=== PATIENT | male | born 1955 | race Caucasian/White ===

== ENCOUNTER 2016-05-28 05:34 | Inpatient (IN) ==
[2016-05-28] MEDS ORDERED: Piperacillin/Tazobactam 3.375 GM in D5% in Water (Mini-Bag+) 100 ML IVPB ONE (05:45)
[2016-05-28] MEDS ORDERED: Vancomycin 1,000 MG in D5% in Water 250 ML IVPB ONE (05:45)
[2016-05-28] MEDS ORDERED: Levofloxacin 750 MG/150 ML 750 MG/150 ML BAG IVPB ONE (05:45)
[2016-05-28] MEDS: 0.9 % Sodium Chloride 1,000 ML IVC SCH ×2 (05:52→06:31)
--- NOTE | 2016-05-28 05:52 | Emergency Department Note ---
Disposition Clinical Impression: Hypoxia, Hypotension, Tachycardia, Severe sepsis Sepsis Qualifiers: Sepsis type: sepsis due to unspecified organism Qualified Code(s): A41.9 - Sepsis, unspecified organism Pneumonia Qualifiers: Pneumonia type: due to unspecified organism Laterality: unspecified laterality Lung location: unspecified part of lung Qualified Code(s): J18.9 - Pneumonia, unspecified organism Disposition: Admitted As Inpatient Condition: Fair Referrals: Mike Leger Jr, MD [Primary Care Provider] - Forms: ED Satisfaction Letter General Adult HPI - General Chief complaint: ED Shortness of Breath/Dyspnea Stated complaint: SOB Time Seen by Provider: 05/28/16 05:45 Source: EMS Mode of arrival: EMS Limitations: no limitations Nursing Notes Reviewed: Yes Vital Signs Reviewed: Yes - History of Present Illness HPI Narrative: 60-year-old male who woke up with dyspnea. Family reports that when he went to bed he was acting himself and he was not complaining of dyspnea at that time. He states that he has shortness of breath along with developing some mild pressure in his chest. Past medical history includes lung cancer for which he reports he is in remission. He also has COPD. He reports he has chronic lower extremity edema but with no diagnosis of CHF. Radiation: non-radiation Pain Severity: moderate Pain Scale: 5 Consistency: constant Improves with: nothing Worsens with: movement Associated symptoms: Reports: denies other symptoms Treatments Prior to Arrival: other (DuoNeb) - Related Data Home Medications Medication Instructions Recorded Confirmed Atorvastatin [Lipitor] 10 mg PO DAILY 12/28/14 03/26/16 Budesonide/Formoterol 160/4.5 1 puff IH BIDR 12/28/14 03/26/16 [Symbicort] Duloxetine HCl [Cymbalta] 60 mg PO BID 12/28/14 03/26/16 Furosemide [Lasix] 40 mg PO DAILY 12/28/14 03/26/16 Gabapentin [Neurontin] 800 mg PO BID 12/28/14 03/26/16 Ipratropium/Albuterol Sulfate 2 puff IH Q4-6H PRN 12/28/14 03/26/16 [Combivent Respimat Inhal [place]] Morphine Sulfate/D5w [Morphine-D5w 0 mg INTRACATH AD PRN 08/21/15 11/17/16 100 mg/100 ml] Nortriptyline [Pamelor] 10 mg PO HS 12/28/14 03/26/16 Sennosides/Docusate Sodium [Senna 1 each PO DAILY 12/28/14 03/26/16 Plus] Gabapentin [Neurontin] 1,600 mg PO HS 07/05/15 03/26/16 Dextroamphetamine/Amphetamine 20 mg PO DAILY 08/21/15 03/26/16 [Adderall 20 mg Tablet] Cholecalciferol (Vitamin D3) 1,000 unit PO DAILY 12/27/15 03/26/16 [Vitamin D3] Lactobacillus Combination No.8 1 mg PO DAILY 12/27/15 03/26/16 [Adult Probiotic] Benztropine [Cogentin] 1 mg PO HS PRN 01/14/16 03/26/16 Oxygen 3 l NS AD MDD 24 hours 01/14/16 03/26/16 Previous Rx's Medication Instructions Recorded Lidocaine Viscous Oral Soln 30 ml MM ONCE PRN #1 solution 12/28/14 OxyCODONE Immed Rel [Roxicodone 15 15 mg PO Q6HR PRN #40 tablet 07/09/15 MG] PredniSONE 10 mg PO DAILY #147 tablet 08/02/15 Levothyroxine [Synthroid] 175 mcg PO DAILY #90 tablet 08/15/15 Potassium Chloride 20 meq PO DAILY #90 tab.er.prt 01/17/16 Pantoprazole Sodium [Protonix] 40 mg PO DAILY #90 03/26/16 PredniSONE 5 mg PO DAILY #150 tablet 03/26/16 Allergies Allergy/AdvReac Type Severity Reaction Status Date / Time No Known Allergies Allergy Verified 03/26/16 15:48 All systems ED: reviewed and negative except as stated. Constitutional: Denies: fever Eyes: Denies: vision change ENT ED: Denies: ear pain, throat pain Cardiovascular: Reports: chest pain Respiratory: Reports: cough, dyspnea Gastrointestinal: Denies: abdominal pain, nausea, vomiting, diarrhea Genitourinary: Denies: dysuria Musculoskeletal: Denies: back pain Integumentary: Denies: rash Neurological: Denies: headache Endocrine: Reports: fatigue Past Medical History - Past Medical History Medical history: Reports: arthritis, cancer, COPD, hyperlipidemia, hypertension , other Psychiatric history: Reports: depression - Social History Smoking Status: Former smoker Smokeless Tobacco Status: No Alcohol use: Reports: none Drug use: Reports: none Physical Exam - General Limitations: no limitations General appearance: alert - Head Head exam: atraumatic - Eye Eye exam: Present: normal appearance, PERRL, EOMI - ENT ENT exam: normal exam, normal oropharynx - Neck Neck exam: Present: normal inspection - Chest Chest inspection: Present: normal inspection - Respiratory Respiratory exam: Present: other (rales on the right throughout. Coarse sounds bilaterally.). Absent: respiratory distress, stridor - Cardiovascular Cardiovascular exam: Present: normal rhythm, tachycardia - Abdominal Exam Abdominal exam: Present: soft, Non-Tender - Extremities Exam Extremities exam: Present: pedal edema (2+ bilaterally) - Back Exam Back exam: Present: normal inspection - Neurological Exam Neurological exam: Present: alert, oriented X3, CN II-XII intact - Skin Skin exam: Present: warm, dry Course Course Narrative: When he arrived he was tachycardic with a rate of approximately 125 and a blood pressure of approximately 100 systolic. His SPO2 was in the mid 80s on 4 L nasal cannula. he is now on a Ventimask and has an SPO2 of 92%. Throughout this he has not been in visible respiratory distress. He does have tachypnea but is able to carry on full conversations and will sentences. He also does not appear to be struggling. He is completely alert and oriented 3 and has no deficit in his cognition. He is febrile and has rails of the right lung. I have concern for sepsis of pulmonary origin and will initiate sepsis protocol along with initiating antibiotics. - Reevaluation(s) Reevaluation #1: Troponin is 0.04. No EKG changes and no current chest pain. After a fluid bolus his HR has decreased to around 100 and his blood pressure increased to 120 systolic. He states he feels much better. His O2 saturation has also improved. Reevaluation #2: Accepted by Dr Kirk. Requested hydrocortisone due to chronic steroid use which I will administer. Will request 2N bed. He is carrying on full sentence conversations still and fels improved. Vital Signs Temperature 102.1 F H 05/28/16 05:36 Pulse Rate 123 05/28/16 05:36 Respiratory Rate 24 05/28/16 05:36 Blood Pressure 98/73 05/28/16 05:36 O2 Sat by Pulse Oximetry 91 L 01/19/17 05:36 Temperature 102.1 F H 05/28/16 05:36 Pulse Rate 112 05/28/16 06:49 Respiratory Rate 32 05/28/16 06:49 Blood Pressure 125/81 05/28/16 06:49 O2 Sat by Pulse Oximetry 95 05/28/16 06:49 Oxygen Delivery Oxygen Delivery Nasal Cannula Medical Decision Making - Medical Records Medical records reviewed: Yes I reviewed the patient's medical records. - Lab Data Lab results reviewed: Yes I reviewed the patient's lab results. Result diagrams: 05/28/16 05:52 05/28/16 05:52 Lab Results 05/28/16 05/28/16 05/28/16 Range/Units 05:52 05:52 05:52 WBC 3.8 L (4.3-11.1) K/mcL RBC 4.19 (4.19-5.50) M/mcL Hgb 12.0 L (12.9-16.9) g/dL Hct 37.7 (37.5-50.1) % MCV 90.0 (83.0-100.0) fL MCH 28.6 (28.0-33.3) pg MCHC 31.8 (31.6-35.5) g/dL RDW 13.8 (11.5-14.5) % Plt Count 113 L (140-400) K/mcL MPV 10.7 (9.4-12.4) fL Immature Gran % 0.5 (0-4) % Seg Neutrophils % 90.0 % Lymphocytes % 5.0 % Monocytes % 2.6 % Eosinophils % 1.9 % Basophils % 0.0 % Neutrophils # 3.4 (1.6-8.9) K/mcL Lymphocytes # 0.2 L (0.6-4.6) K/mcL Monocytes # 0.1 (0.0-1.3) K/mcL Eosinophils # 0.1 (0.0-0.6) K/mcL Basophils # 0.0 (0.0-0.2) K/mcL Platelet Estimate Slight Decrease L (Normal) Immature Plt Fraction 7.6 H (1.1-6.1) % PT 11.9 (9.4-12.1) Seconds INR 1.1 APTT 26.9 (26.0-36.0) Seconds Sodium 138 (136-145) mEq/L Potassium 3.1 L (3.5-4.5) mEq/L Chloride 98 (98-109) mEq/L Carbon Dioxide 30 H (19-29) mEq/L BUN 24 (8-26) mg/dL Creatinine 0.75 (0.72-1.25) mg/dL Est GFR ( Amer) > 60 (> 60) Est GFR (Non-Af Amer) > 60 (> 60) BUN/Creatinine Ratio 32 H (6-26) Glucose 101 H (70-99) mg/dL Calculated Osmolality 290 (280-300) Lactic Acid (0.5-2.2) mmol/L Calcium 10.1 (8.6-10.8) mg/dL Phosphorus 2.0 L (2.3-4.7) mg/dL Magnesium 1.5 L (1.6-2.6) mg/dL Total Bilirubin 1.5 H (0.2-1.2) mg/dL Direct Bilirubin 0.6 H (0.0-0.5) mg/dL Indirect Bilirubin 0.9 (0.0-1.2) mg/dL AST 32 (5-34) Units/L ALT 24 (0-55) Units/L Alkaline Phosphatase 85 (38-126) Units/L Troponin I (0-0.03) ng/mL Serum Total Protein 7.7 (6.0-8.3) g/dL Albumin 4.1 (3.5-5.0) g/dL Globulin 3.6 H (2.4-3.5) g/dL Albumin/Globulin Ratio 1.1 (1.1-2.2) 05/28/16 05/28/16 Range/Units 05:52 06:16 WBC (4.3-11.1) K/mcL RBC (4.19-5.50) M/mcL Hgb (12.9-16.9) g/dL Hct (37.5-50.1) % MCV (83.0-100.0) fL MCH (28.0-33.3) pg MCHC (31.6-35.5) g/dL RDW (11.5-14.5) % Plt Count (140-400) K/mcL MPV (9.4-12.4) fL Immature Gran % (0-4) % Seg Neutrophils % % Lymphocytes % % Monocytes % % Eosinophils % % Basophils % % Neutrophils # (1.6-8.9) K/mcL Lymphocytes # (0.6-4.6) K/mcL Monocytes # (0.0-1.3) K/mcL Eosinophils # (0.0-0.6) K/mcL Basophils # (0.0-0.2) K/mcL Platelet Estimate (Normal) Immature Plt Fraction (1.1-6.1) % PT (9.4-12.1) Seconds INR APTT (26.0-36.0) Seconds Sodium (136-145) mEq/L Potassium (3.5-4.5) mEq/L Chloride (98-109) mEq/L Carbon Dioxide (19-29) mEq/L BUN (8-26) mg/dL Creatinine (0.72-1.25) mg/dL Est GFR ( Amer) (> 60) Est GFR (Non-Af Amer) (> 60) BUN/Creatinine Ratio (6-26) Glucose (70-99) mg/dL Calculated Osmolality (280-300) Lactic Acid 2.1 (0.5-2.2) mmol/L Calcium (8.6-10.8) mg/dL Phosphorus (2.3-4.7) mg/dL Magnesium (1.6-2.6) mg/dL Total Bilirubin (0.2-1.2) mg/dL Direct Bilirubin (0.0-0.5) mg/dL Indirect Bilirubin (0.0-1.2) mg/dL AST (5-34) Units/L ALT (0-55) Units/L Alkaline Phosphatase (38-126) Units/L Troponin I 0.04 H* (0-0.03) ng/mL Serum Total Protein (6.0-8.3) g/dL Albumin (3.5-5.0) g/dL Globulin (2.4-3.5) g/dL Albumin/Globulin Ratio (1.1-2.2) - Radiology Data Radiology results reviewed: Yes I reviewed the patient's radiology results. - EKG Data EKG #1 EKG attestation: Yes I reviewed and interpreted this EKG. EKG shows normal: sinus rhythm Rate: tachycardia [place]/QRS: RBBB When compared to previous EKG there are: no significant changes Attestation Statement - Attestation Attestation: I, Brodie Saeed MD, personally performed a history and physical exam of the patient and discussed their management with the resident. I reviewed the resident's note and agree with the documented findings, medical decision making , and plan of care. 60-year-old male persisted emergency department with shortness of breath that started during the night. He was fine when he went to bed. Patient has a history of COPD and also lung cancer in his left lung. On arrival the patient is very tachypneic and tachycardic with a heart rate in the 130s. Oxygen saturation in the upper 80s to low 90s. Also somewhat hypotensive with a systolic blood pressure in the 90s. On examination he is a well-developed thin male who appears much older than actual age. He is alert and answers questions appropriately. There is no cyanosis or diaphoresis. Breath sounds are equal but decreased bilaterally with diffuse bibasilar rales, worse on the right. No wheezes noted. Heart tachycardic and regular. Abdomen soft with normal bowel sounds. 1+ pedal edema bilaterally. Labs reviewed. Chest x-ray shows the left suprahilar mass but no definite infiltrate. Antibiotics initiated. The hospitalist, Dr. Kirk, was consulted and accepted admission of patient.
[2016-05-28 06:04] LABS: Red Cell Distribution Width 13.8 % (11.5-14.5)
[2016-05-28 06:06] LABS: Eosinophils # 0.1 K/mcL (0.0-0.6); Eosinophils % 1.9 %; Hematocrit 37.7 % (37.5-50.1); Immature Granulocytes % 0.5 % (0-4); Immature Platelets 7.6 % (1.1-6.1); Lymphocytes # 0.2 K/mcL (0.6-4.6); Mean Corpuscular HGB Conc 31.8 g/dL (31.6-35.5); Mean Corpuscular Hemoglobin 28.6 pg (28.0-33.3); Mean Platelet Volume 10.7 fL (9.4-12.4); Monocytes # 0.1 K/mcL (0.0-1.3); Monocytes % 2.6 %; Neutrophils # 3.4 K/mcL (1.6-8.9); Platelet Count 113 K/mcL (140-400); Red Blood Count 4.19 M/mcL (4.19-5.50)
[2016-05-28 06:14] LABS: INR 1.1; Prothrombin Time 11.9 Seconds (9.4-12.1)
[2016-05-28 06:17] LABS: Activated Partial Thrombo Time 26.9 Seconds (26.0-36.0)
[2016-05-28 06:18] LABS: Alanine Aminotransferase 24 Units/L (0-55); Albumin 4.1 g/dL (3.5-5.0); Albumin/Globulin Ratio 1.1 (1.1-2.2); Alkaline Phosphatase 85 Units/L (38-126); Aspartate Amino Transferase 32 Units/L (5-34); BUN/Creatinine Ratio 32 (6-26); Bilirubin,Direct 0.6 mg/dL (0.0-0.5); Bilirubin,Indirect 0.9 mg/dL (0.0-1.2); Bilirubin,Total 1.5 mg/dL (0.2-1.2); Blood Urea Nitrogen 24 mg/dL (8-26); Calcium 10.1 mg/dL (8.6-10.8); Carbon Dioxide 30 mEq/L (19-29); Chloride 98 mEq/L (98-109); Globulin 3.6 g/dL (2.4-3.5); Glucose 101 mg/dL (70-99); Magnesium 1.5 mg/dL (1.6-2.6); Osmolality,Calculated 290 (280-300); Potassium 3.1 mEq/L (3.5-4.5); Sodium 138 mEq/L (136-145); Total Protein 7.7 g/dL (6.0-8.3); eGFR For African Americans > 60 (> 60); eGFR For Non-African Americans > 60 (> 60)
[2016-05-28] MEDS ORDERED: Aspirin 325 MG TABLET PO ONE (06:25)
[2016-05-28 06:39] LABS: Platelet Estimate Slight Decrease (Normal)
[2016-05-28] MEDS ORDERED: Hydrocortisone Sodium Succ 100 MG/2 ML VIAL IVP ONE (06:44)
[2016-05-28] MEDS ORDERED: Ipratropium/Albuterol Neb 3 ML IH PRN (07:50)
[2016-05-28] MEDS ORDERED: Acetaminophen 325 MG TABLET PO PRN (07:53)
[2016-05-28] MEDS ORDERED: Naloxone 0.4 MG/ML INJ IVP PRN (07:53)
[2016-05-28] MEDS ORDERED: Ondansetron 4 MG/2 ML VIAL IVP PRN (07:53)
[2016-05-28] MEDS ORDERED: Vancomycin 1,000 MG in D5% in Water 250 ML IVPB SCH (08:00)
[2016-05-28] MEDS ORDERED: 0.9 % Sodium Chloride 1,000 ML IVC SCH (08:00)
--- NOTE | 2016-05-28 08:04 | Internal Med History&Physical ---
Date of Encounter: 05/28/16 Time of Encounter: 07:59 Assessment and Plan (1) Acute and chronic respiratory failure with hypoxia Current visit: Yes Status: Acute Acute on chronic hypoxic respiratory failure secondary to acute COPD exacerbation from severe sepsis due to possible community-acquired pneumonia versus aspiration pneumonia Fever, leukopenia, hypotension and tachycardia Continue vancomycin and Levaquin, switched to cefepime Continue BiPAP and oxygen therapy Aspiration precautions Chicken ABG Continue IV fluids and IV Solu-Medrol Consider pressors if needed Send to 2 N, and the patient deteriorates we will consider ICU admission as the patient is a full code (2) COPD (chronic obstructive pulmonary disease) Current visit: Yes Status: Acute Qualifiers: COPD type: COPD with acute exacerbation Qualified Code(s): J44.1 - Chronic obstructive pulmonary disease with (acute) exacerbation (3) Leukopenia Current visit: Yes Status: Acute Qualifiers: Neutropenia type: due to infection Qualified Code(s): D70.3 - Neutropenia due to infection (4) Sepsis Current visit: Yes Status: Acute Qualifiers: Sepsis type: sepsis due to unspecified organism Qualified Code(s): A41.9 - Sepsis, unspecified organism (5) Neuropathy Current visit: No Status: Chronic Continue gabapentin (6) Non-small cell carcinoma of left lung, stage 4 Current visit: No Status: Chronic Follow as outpatient (7) Weakness Current visit: No Status: Chronic (8) Hypokalemia Current visit: No Status: Resolved Replete as needed Protonix IV for GI prophylaxis and Lovenox for DVT prophylaxis. The patient will be admitted as inpatient, he is expected to stay more than 2 midnights. Full code. Time spent on this critical care admission 40 minutes. He is high risk due to hypoxia and respiratory failure/sepsis Internal Medicine - H&P: HPI Chief complaint: shortness of breath Admitted From: Emergency Dept History of present illness: Mr. Soria is a 60 year old male with a past medical history of lung cancer s/p chemotherapy and radiotherapy, COPD O2 dependant, chronic lef edema, remote history of smoking, was brought to the emergency room by his as he was in severe respiratory distress that started approximately at 2:30 AM. The patient uses 3.5 L of oxygen at home usually, upon admission to the emergency room, his saturation of oxygen dropped to 80% even on 4 L for which he had to be started on a BiPAP. Developed a fever of 102.1, heart rate was 124, blood pressure was 98/73. The patient is barely waking up and is very lethargic, not able to provide proper history. The history was taken from his and the records. His potassium was 3.1 his white blood cell count is 3.8 troponin 0.04. Chest x-ray shows a left heel or mass present. 4 and a left lower lobe opacity compatible with pneumonia. PACs is down at the moment and were not able to look at the images directly. ABG has not been done yet. Patient was started on Levaquin, Zosyn and vancomycin. Also was given a dose of hydrocortisone. She has stabilized slightly and he is waking up at the moment and able to communicate that he is complaining of some mild chest pain on the left mainly pleuritic, and bringing up whitish phlegm. Past Med Surg Social Fam HX - Past Medical History Medical history: arthritis (Osteoarthritis), cancer (Non-small cell carcinoma stage IV status post chemotherapy and radiotherapy), COPD (Oxygen dependent using 3-3.5 L continuously), GERD, hyperlipidemia, hypertension, other ( Neuropathy, hypothyroidism, insomnia, depression, hyperlipidemia, chronic leg edema) Psychiatric history: depression - Past Surgical History Surgical History: other (Niesen fundoplication, laminectomy, spinal fusion, spinal cord stimulator removed, pain pump removed) - Social History Smoking Status: Former smoker (Quitting 2008) Smokeless Tobacco Status: No Alcohol use: none Drug use: none - Family History Mother Living Status: Still Living Hx Family Cardiac Disorders: Yes Hx Family Respiratory Disorders: Yes (COPD) Hx Family Neurologic Disorders: Yes (dementia) Father Living Status: Still Living Hx Family Cardiac Disorders: Yes (CHF, COPD) Hx Family Endocrine Disorder: Yes (DM) - Additional Family History Additional family history: Father with diabetes and mother with COPD Internal Medicine - H&P: Meds Atorvastatin [Lipitor] 10 mg PO DAILY 12/28/14 [History] Budesonide/Formoterol 160/4.5 [Symbicort] 1 puff IH BIDR 12/28/14 [History] Duloxetine HCl [Cymbalta] 60 mg PO BID 12/28/14 [History] Furosemide [Lasix] 40 mg PO DAILY 12/28/14 [History] Gabapentin [Neurontin] 800 mg PO BID 12/28/14 [History] Ipratropium/Albuterol Sulfate [Combivent Respimat Inhal [place]] 2 puff IH Q4-6H PRN 12/28/14 [History] Lidocaine Viscous Oral Soln 30 ml MM ONCE PRN #1 solution 12/28/14 [Rx] Morphine Sulfate/D5w [Morphine-D5w 100 mg/100 ml] 0 mg INTRACATH AD PRN [History] Nortriptyline [Pamelor] 10 mg PO HS 12/28/14 [History] Sennosides/Docusate Sodium [Senna Plus] 2 each PO DAILY PRN 12/28/14 [History] Gabapentin [Neurontin] 1,600 mg PO HS 07/05/15 [History] OxyCODONE Immed Rel [Roxicodone 15 MG] 15 mg PO Q6HR PRN #40 tablet 07/09/15 [Rx ] Levothyroxine [Synthroid] 175 mcg PO DAILY #90 tablet 08/15/15 [Rx] Dextroamphetamine/Amphetamine [Adderall 20 mg Tablet] 20 mg PO DAILY 08/21/15 [ History] Cholecalciferol (Vitamin D3) [Vitamin D3] 1,000 unit PO DAILY 12/27/15 [History] Lactobacillus Combination No.8 [Adult Probiotic] 1 mg PO DAILY 12/27/15 [History ] Benztropine [Cogentin] 1 mg PO HS PRN 01/14/16 [History] Oxygen 3 - 3.5 l NS CONT 01/14/16 [History] Potassium Chloride 20 meq PO DAILY #90 tab.er.prt 01/17/16 [Rx] Pantoprazole Sodium [Protonix] 40 mg PO DAILY #90 gran 03/26/16 [Rx] PredniSONE 5 mg PO DAILY #150 tablet 03/26/16 [Rx] Ammonium Lactate [Telma-Hydrolac] 1 appl TP BID 05/28/16 [History] Ipratropium/Albuterol Neb [Duoneb] 3 ml IH QID PRN 05/28/16 [History] Allergies No Known Allergies Allergy (Verified 03/26/16 15:48) All Systems PM: A 10-system review of systems was performed and is negative for pertinent findings except as documented above in the HPI. Review of systems: Uses extremely weak, unable to complete review of systems due to the patient's lethargy - Constitutional Vitals: Temp Pulse Resp BP Pulse Ox 101.6 F H 119 30 118/76 98 05/28/16 07:11 05/28/16 07:11 05/28/16 07:11 05/28/16 07:11 05/28/16 07:11 General appearance: Present: A&O X 3 (Very weak), underweight - Head Head exam: Present: atraumatic, normocephalic - Eye Eye exam: Present: PERRL, conjuntiva pink, sclera anicteric Pupils: Present: PERRL - Neck Neck exam general surgery: Present: supple, trachea midline. Absent: lymphadenopathy - Respiratory Respiratory exam: Present: decreased breath sounds, CTAB, rales (Diffuse crackles with mild wheezing), wheezes. Absent: accessory muscle use, rhonchi - Cardiovascular Cardiovascular exam: Present: RRR, +S1, +S2. Absent: diastolic murmur, gallop, rubs, systolic murmur - GI/Abdominal GI/Abdominal exam: Present: normal bowel sounds, soft, no peritoneal signs. Absent: distended, tenderness - Extremities Exam Extremities exam: Present: pedal edema (+1 pitting edema both lower extremities) , warm, radial pulses palpable and symetrical. Absent: calf tenderness, cyanotic - Neurological Exam Neurological exam: Present: CN II-XII intact, oriented X3, no focal deficits. Absent: pronater drift, facial droop, speech deficit - Skin Skin exam: Present: dry, intact Internal Med - H&P Results - Labs CBC & Chem 7: 05/28/16 05:52 05/28/16 05:52
[2016-05-28] MEDS: Ipratropium/Albuterol Neb 3 ML IH SCH ×4 (08:32→22:07)
[2016-05-28 08:34] LABS: ABG Base Excess 7.7 mEq/L (-2.0 to 3.0); ABG HCO3 33.6 mEQ/L (21-27); ABG Oxygen Saturation 94 % (95-98); ABG PCO2 53 mmHg (35-45); ABG PH 7.41 pH Units (7.32-7.45); ABG PO2 72 mmHg (85-104); ABG TCO2 35.2 mEq/L (20-26)
[2016-05-28 08:37] LABS: Blood Gas FiO2 40 %
[2016-05-28] MEDS: *HR* Enoxaparin 40 MG/0.4 ML SYRINGE SQ SCH (09:18)
[2016-05-28] MEDS: Cefepime HCl 1,000 MG in D5% in Water (Mini-Bag+) 100 ML IVPB SCH ×2 (09:18→17:15)
[2016-05-28] MEDS: Pantoprazole 40 MG VIAL IV SCH (09:19)
[2016-05-28] MEDS: methylPREDNISolone 125 MG/2 ML VIAL IV SCH ×2 (09:19→15:57)
[2016-05-28] MEDS: Lactobacillus 1 EACH CAP.SPRINK PO SCH (09:19)
[2016-05-28] MEDS: Gabapentin 400 MG CAPSULE PO SCH ×2 (09:19→19:44)
[2016-05-28] MEDS: D5% in 0.45% NACL w KCl 10 MEQ/1,000 ML MLS IVC SCH ×2 (09:19→17:52)
[2016-05-28] MEDS: (Dextroamphetamine/Amphetamine [Adderall 20 Mg Tablet PO SCH (09:20)
--- NOTE | 2016-05-28 12:00 | Electrocardiograph Report ---
[facility] Test Date: 2016-05-28 Pat Name: Edgard Soria Department: 103 Room: 2N07 Gender: M [employer]: DANIELLA : 1955 Requested By: Roman Hernandez Order Number: [id number] Reading MD: Osmani Mark MD Measurements Intervals [place] Rate: 123 P: 23 [place]: 130 QRS: 10 QRSD: 133 T: -17 QT: 319 QTc: 392 Interpretive Statements SINUS TACHYCARDIA WITH OCCASIONAL SUPRAVENTRICULAR PREMATURE COMPLEXES RIGHT BUNDLE BRANCH BLOCK Electronically Signed On 05-28-16 11:59:31 EST by Osmani Mark MD
[2016-05-28] MEDS: Vancomycin 1,000 MG in D5% in Water 250 ML IVPB SCH (17:53)
[2016-05-28 23:19] LABS: Bilirubin,Urine Negative (Negative); Blood,Urine Negative (Negative); Clarity,Urine Clear (Clear); Color,Urine Yellow (Yellow); Glucose,Urine (UA) Normal (Normal); Ketones,Urine Negative (Negative); Leukocyte Esterase,Urine Negative (Negative); Nitrite,Urine Negative (Negative); Protein,Urine Negative (Neg-Trace); Specific Gravity,Urine 1.014 (1.010-1.025); Urobilinogen,Urine Normal (Normal)
[2016-05-29] MEDS: methylPREDNISolone 125 MG/2 ML VIAL IV SCH ×3 (00:51→16:22)
[2016-05-29] MEDS: D5% in 0.45% NACL w KCl 10 MEQ/1,000 ML MLS IVC SCH ×2 (02:04→10:16)
[2016-05-29] MEDS: Ipratropium/Albuterol Neb 3 ML IH SCH ×4 (04:07→21:16)
[2016-05-29 05:05] LABS: Hematocrit 29.7 % (37.5-50.1); Hemoglobin 9.5 g/dL (12.9-16.9); Lymphocytes # 0.4 K/mcL (0.6-4.6); Lymphocytes % 3.1 %; Mean Corpuscular Hemoglobin 28.6 pg (28.0-33.3); Mean Corpuscular Volume 89.5 fL (83.0-100.0); Mean Platelet Volume 11.7 fL (9.4-12.4); Monocytes # 0.5 K/mcL (0.0-1.3); Monocytes % 4.5 %; Neutrophils # 10.2 K/mcL (1.6-8.9); Platelet Count 83 K/mcL (140-400); Red Blood Count 3.32 M/mcL (4.19-5.50); Red Cell Distribution Width 14.3 % (11.5-14.5); Segmented Neutrophils % 90.4 %
[2016-05-29 05:28] LABS: BUN/Creatinine Ratio 22 (6-26); Carbon Dioxide 27 mEq/L (19-29); Chloride 103 mEq/L (98-109); Glucose 157 mg/dL (70-99); Osmolality,Calculated 287 (280-300); Potassium 4.1 mEq/L (3.5-4.5); Sodium 137 mEq/L (136-145); eGFR For African Americans > 60 (> 60); eGFR For Non-African Americans > 60 (> 60)
[2016-05-29 05:29] LABS: Blood Urea Nitrogen 13 mg/dL (8-26)
[2016-05-29 05:32] LABS: Platelet Estimate Decreased (Normal)
[2016-05-29] MEDS: Cefepime HCl 1,000 MG in D5% in Water (Mini-Bag+) 100 ML IVPB SCH ×2 (05:49→17:50)
[2016-05-29] MEDS: Vancomycin 1,000 MG in D5% in Water 250 ML IVPB SCH ×2 (06:22→18:02)
[2016-05-29] MEDS: Gabapentin 400 MG CAPSULE PO SCH ×2 (08:23→20:51)
[2016-05-29] MEDS: Levofloxacin 750 MG/150 ML 750 MG/150 ML BAG IVPB SCH (08:24)
[2016-05-29] MEDS: Lactobacillus 1 EACH CAP.SPRINK PO SCH (08:24)
[2016-05-29] MEDS: Pantoprazole 40 MG VIAL IV SCH (08:24)
[2016-05-29] MEDS: (Dextroamphetamine/Amphetamine [Adderall 20 Mg Tablet PO SCH (08:26)
[2016-05-29] MEDS: *HR* Enoxaparin 40 MG/0.4 ML SYRINGE SQ SCH (08:26)
--- NOTE | 2016-05-29 10:46 | Internal Med Progress Note ---
Date of Encounter: 05/29/16 Time of Encounter: 10:00 - Assessment and plan (1) Acute and chronic respiratory failure with hypoxia Current Visit: Yes Status: Acute Assessment and plan: Improving. Due to pneumonia. Continue antibiotics. Follow cultures. They have been negative so far. We will send sputum for culture (2) COPD (chronic obstructive pulmonary disease) Current Visit: Yes Status: Acute Assessment and plan: On DuoNeb, methylprednisolone. Also on O2 supplementation. Continue current management. We will start weaning steroids. Qualifiers: COPD type: COPD with acute exacerbation Qualified Code(s): J44.1 - Chronic obstructive pulmonary disease with (acute) exacerbation (3) Leukopenia Current Visit: Yes Status: Resolved Assessment and plan: Leukocyte count has improved. Qualifiers: Neutropenia type: due to infection Qualified Code(s): D70.3 - Neutropenia due to infection (4) Sepsis Current Visit: Yes Status: Acute Assessment and plan: Blood cultures are negative so far. Sepsis resolving. Qualifiers: Sepsis type: sepsis due to unspecified organism Qualified Code(s): A41.9 - Sepsis, unspecified organism (5) Neuropathy Current Visit: No Status: Chronic Assessment and plan: on Neurontin (6) Non-small cell carcinoma of left lung, stage 4 Current Visit: No Status: Chronic Assessment and plan: Follow-up patient with oncology. No acute management at this time. (7) Weakness Current Visit: Yes Status: Chronic Assessment and plan: Consult physical therapy for evaluation. (8) Hypokalemia Current Visit: No Status: Resolved Assessment and plan: This has improved. - Subjective Interval history: Patient is feeling better today. Breathing has improved. Denies any new complaints at this time. Having cough and feels like he is going to start making sputum. But so far it has been dry. - Constitutional Vitals: Temp Pulse Resp BP Pulse Ox 97.8 F 88 21 125/79 93 L 05/29/16 07:41 05/29/16 09:00 05/29/16 08:40 05/29/16 08:40 05/29/16 10:00 General appearance: Present: cooperative, mild distress, A&O X 3, pleasant, underweight, answers questions appropriately - Respiratory Respiratory exam: Present: prolonged expiratory phase, wheezes. Absent: accessory muscle use, rales, rhonchi Additional comments: crackles at bases - Cardiovascular Cardiovascular exam: Present: RRR, +S1, +S2. Absent: diastolic murmur, gallop, rubs, systolic murmur - GI/Abdominal GI/Abdominal exam: Present: normal bowel sounds, soft, no peritoneal signs. Absent: distended, tenderness - Extremities Exam Extremities exam: Present: warm, radial pulses palpable and symetrical. Absent : calf tenderness, cyanotic, pedal edema - Neurological Exam Neurological exam: Present: CN II-XII intact, oriented X3, no focal deficits. Absent: pronater drift, facial droop, speech deficit - Skin Skin exam: Present: dry, intact Internal Medicine: Result - Labs CBC & Chem 7: 05/29/16 04:25 05/29/16 04:25 Labs: Short CBC 05/29/16 Range/Units 04:25 WBC 11.3 H D (4.3-11.1) K/mcL Hgb 9.5 L D (12.9-16.9) g/dL Hct 29.7 L (37.5-50.1) % Plt Count 83 L (140-400) K/mcL Neutrophils # 10.2 H (1.6-8.9) K/mcL BMP 05/29/16 04:25 Sodium 137 Potassium 4.1 D Chloride 103 Carbon Dioxide 27 BUN 13 D Creatinine 0.58 L Glucose 157 H Calcium 9.0 Cardiac Enzymes 05/28/16 05/28/16 Range/Units 11:52 18:11 Troponin I 0.06 H* 0.03 (0-0.03) ng/mL Urine 05/28/16 Range/Units 12:15 Urine Color Yellow (Yellow) Urine Clarity Clear (Clear) Urine pH 6.0 (5.0-8.0) pH Units Ur Specific [place] 1.014 (1.010-1.025) Urine Protein Negative (Neg-Trace) mg/dL Urine Glucose (UA) Normal (Normal) mg/dL - ABG Interpretation ABG results: ABG ABG pH 7.41 pH Units (7.32-7.45) 05/28/16 08:23 ABG pCO2 53 mmHg (35-45) H 05/28/16 08:23 ABG pO2 72 mmHg (85-104) L 05/28/16 08:23 ABG O2 Saturation 94 % (95-98) L 05/28/16 08:23 PT/INR, D-dimer PT 11.9 Seconds (9.4-12.1) 05/28/16 05:52 Consult Discharge Plan - Plan Referrals: Mike Leger Jr, MD [Primary Care Provider] - - Attending Attestation This document has been at least partially created by [employer] recognition technology by Dr. Cespedes. Errors in grammar, wording or other phrases may exist. If errors are found after the documentation is signed, they will be addressed individually in the addendum section of this document when appropriate. Medical Decision Making - MDM Narrative Medical decision making narrative: Moderate risk for complications - Lab Data Lab results reviewed: Yes I reviewed the patient's lab results. Result diagrams: 05/29/16 04:25 05/29/16 04:25 Lab Results 05/28/16 05/28/16 05/28/16 Range/Units 08:23 09:16 10:52 WBC (4.3-11.1) K/mcL RBC (4.19-5.50) M/mcL Hgb (12.9-16.9) g/dL Hct (37.5-50.1) % MCV (83.0-100.0) fL MCH (28.0-33.3) pg MCHC (31.6-35.5) g/dL RDW (11.5-14.5) % Plt Count (140-400) K/mcL MPV (9.4-12.4) fL Immature Gran % (0-4) % Seg Neutrophils % % Lymphocytes % % Monocytes % % Eosinophils % % Basophils % % Neutrophils # (1.6-8.9) K/mcL Lymphocytes # (0.6-4.6) K/mcL Monocytes # (0.0-1.3) K/mcL Eosinophils # (0.0-0.6) K/mcL Basophils # (0.0-0.2) K/mcL Platelet Estimate (Normal) ABG pH 7.41 (7.32-7.45) pH Units ABG pCO2 53 H (35-45) mmHg ABG pO2 72 L (85-104) mmHg ABG HCO3 33.6 H (21-27) mEQ/L ABG Total CO2 35.2 H (20-26) mEq/L ABG O2 Saturation 94 L (95-98) % ABG Base Excess 7.7 H (-2.0 to 3.0) mEq/L Blood Gas Modality BIPAP Inspired O2 40 % Sodium (136-145) mEq/L Potassium (3.5-4.5) mEq/L Chloride (98-109) mEq/L Carbon Dioxide (19-29) mEq/L BUN (8-26) mg/dL Creatinine (0.72-1.25) mg/dL Est GFR ( Amer) (> 60) Est GFR (Non-Af Amer) (> 60) BUN/Creatinine Ratio (6-26) Glucose (70-99) mg/dL POC Glucose 81 (58-89) Calculated Osmolality (280-300) Lactic Acid 1.5 (0.5-2.2) mmol/L Calcium (8.6-10.8) mg/dL Troponin I (0-0.03) ng/mL Urine Color (Yellow) Urine Clarity (Clear) Urine pH (5.0-8.0) pH Units Ur Specific [place] (1.010-1.025) Urine Protein (Neg-Trace) mg/dL Urine Glucose (UA) (Normal) mg/dL Urine Ketones (Negative) mg/dL Urine Blood (Negative) Urine Nitrite (Negative) Urine Bilirubin (Negative) Urine Urobilinogen (Normal) mg/dL Ur Leukocyte Esterase (Negative) Ur Culture Indicated? (NO) 05/28/16 05/28/16 05/28/16 Range/Units 11:33 11:52 12:15 WBC (4.3-11.1) K/mcL RBC (4.19-5.50) M/mcL Hgb (12.9-16.9) g/dL Hct (37.5-50.1) % MCV (83.0-100.0) fL MCH (28.0-33.3) pg MCHC (31.6-35.5) g/dL RDW (11.5-14.5) % Plt Count (140-400) K/mcL MPV (9.4-12.4) fL Immature Gran % (0-4) % Seg Neutrophils % % Lymphocytes % % Monocytes % % Eosinophils % % Basophils % % Neutrophils # (1.6-8.9) K/mcL Lymphocytes # (0.6-4.6) K/mcL Monocytes # (0.0-1.3) K/mcL Eosinophils # (0.0-0.6) K/mcL Basophils # (0.0-0.2) K/mcL Platelet Estimate (Normal) ABG pH (7.32-7.45) pH Units ABG pCO2 (35-45) mmHg ABG pO2 (85-104) mmHg ABG HCO3 (21-27) mEQ/L ABG Total CO2 (20-26) mEq/L ABG O2 Saturation (95-98) % ABG Base Excess (-2.0 to 3.0) mEq/L Blood Gas Modality Inspired O2 % Sodium (136-145) mEq/L Potassium (3.5-4.5) mEq/L Chloride (98-109) mEq/L Carbon Dioxide (19-29) mEq/L BUN (8-26) mg/dL Creatinine (0.72-1.25) mg/dL Est GFR ( Amer) (> 60) Est GFR (Non-Af Amer) (> 60) BUN/Creatinine Ratio (6-26) Glucose (70-99) mg/dL POC Glucose 124 H (58-89) Calculated Osmolality (280-300) Lactic Acid (0.5-2.2) mmol/L Calcium (8.6-10.8) mg/dL Troponin I 0.06 H* (0-0.03) ng/mL Urine Color Yellow (Yellow) Urine Clarity Clear (Clear) Urine pH 6.0 (5.0-8.0) pH Units Ur Specific [place] 1.014 (1.010-1.025) Urine Protein Negative (Neg-Trace) mg/dL Urine Glucose (UA) Normal (Normal) mg/dL Urine Ketones Negative (Negative) mg/dL Urine Blood Negative (Negative) Urine Nitrite Negative (Negative) Urine Bilirubin Negative (Negative) Urine Urobilinogen Normal (Normal) mg/dL Ur Leukocyte Esterase Negative (Negative) Ur Culture Indicated? NO (NO) 05/28/16 05/29/16 05/29/16 Range/Units 18:11 04:25 04:25 WBC 11.3 H D (4.3-11.1) K/mcL RBC 3.32 L (4.19-5.50) M/mcL Hgb 9.5 L D (12.9-16.9) g/dL Hct 29.7 L (37.5-50.1) % MCV 89.5 (83.0-100.0) fL MCH 28.6 (28.0-33.3) pg MCHC 32.0 (31.6-35.5) g/dL RDW 14.3 (11.5-14.5) % Plt Count 83 L (140-400) K/mcL MPV 11.7 (9.4-12.4) fL Immature Gran % 2.0 (0-4) % Seg Neutrophils % 90.4 % Lymphocytes % 3.1 % Monocytes % 4.5 % Eosinophils % 0.0 % Basophils % 0.0 % Neutrophils # 10.2 H (1.6-8.9) K/mcL Lymphocytes # 0.4 L (0.6-4.6) K/mcL Monocytes # 0.5 (0.0-1.3) K/mcL Eosinophils # 0.0 (0.0-0.6) K/mcL Basophils # 0.0 (0.0-0.2) K/mcL Platelet Estimate Decreased L (Normal) ABG pH (7.32-7.45) pH Units ABG pCO2 (35-45) mmHg ABG pO2 (85-104) mmHg ABG HCO3 (21-27) mEQ/L ABG Total CO2 (20-26) mEq/L ABG O2 Saturation (95-98) % ABG Base Excess (-2.0 to 3.0) mEq/L Blood Gas Modality Inspired O2 % Sodium 137 (136-145) mEq/L Potassium 4.1 D (3.5-4.5) mEq/L Chloride 103 (98-109) mEq/L Carbon Dioxide 27 (19-29) mEq/L BUN 13 D (8-26) mg/dL Creatinine 0.58 L (0.72-1.25) mg/dL Est GFR ( Amer) > 60 (> 60) Est GFR (Non-Af Amer) > 60 (> 60) BUN/Creatinine Ratio 22 (6-26) Glucose 157 H (70-99) mg/dL POC Glucose (58-89) Calculated Osmolality 287 (280-300) Lactic Acid (0.5-2.2) mmol/L Calcium 9.0 (8.6-10.8) mg/dL Troponin I 0.03 (0-0.03) ng/mL Urine Color (Yellow) Urine Clarity (Clear) Urine pH (5.0-8.0) pH Units Ur Specific [place] (1.010-1.025) Urine Protein (Neg-Trace) mg/dL Urine Glucose (UA) (Normal) mg/dL Urine Ketones (Negative) mg/dL Urine Blood (Negative) Urine Nitrite (Negative) Urine Bilirubin (Negative) Urine Urobilinogen (Normal) mg/dL Ur Leukocyte Esterase (Negative) Ur Culture Indicated? (NO)
[2016-05-29] MEDS: *HR* Morphine 2 MG/ML SYRINGE IV PRN (20:47)
[2016-05-29] MEDS: *HR* OxyCODONE Immed Rel 15 MG TABLET PO PRN (23:52)
[2016-05-30] MEDS: Vancomycin 1,000 MG in D5% in Water 250 ML IVPB SCH ×2 (03:25→11:05)
[2016-05-30] MEDS: methylPREDNISolone 125 MG/2 ML VIAL IV SCH ×2 (04:01→15:39)
[2016-05-30 04:40] LABS: Hematocrit 30.7 % (37.5-50.1); Hemoglobin 9.6 g/dL (12.9-16.9); Immature Granulocytes % 1.7 % (0-4); Lymphocytes # 0.3 K/mcL (0.6-4.6); Lymphocytes % 2.8 %; Mean Corpuscular HGB Conc 31.3 g/dL (31.6-35.5); Mean Corpuscular Hemoglobin 28.2 pg (28.0-33.3); Mean Corpuscular Volume 90.3 fL (83.0-100.0); Mean Platelet Volume 12.1 fL (9.4-12.4); Monocytes # 0.8 K/mcL (0.0-1.3); Monocytes % 6.4 %; Neutrophils # 10.9 K/mcL (1.6-8.9); Platelet Count 100 K/mcL (140-400); Red Cell Distribution Width 14.4 % (11.5-14.5); Segmented Neutrophils % 89.1 %
[2016-05-30] MEDS: Ipratropium/Albuterol Neb 3 ML IH SCH ×4 (04:43→22:35)
[2016-05-30 04:57] LABS: BUN/Creatinine Ratio 26 (6-26); Blood Urea Nitrogen 15 mg/dL (8-26); Calcium 10.1 mg/dL (8.6-10.8); Carbon Dioxide 30 mEq/L (19-29); Chloride 101 mEq/L (98-109); Glucose 121 mg/dL (70-99); Osmolality,Calculated 290 (280-300); Potassium 3.9 mEq/L (3.5-4.5); Sodium 139 mEq/L (136-145); eGFR For African Americans > 60 (> 60); eGFR For Non-African Americans > 60 (> 60)
[2016-05-30] MEDS: Cefepime HCl 1,000 MG in D5% in Water (Mini-Bag+) 100 ML IVPB SCH ×2 (06:04→18:33)
[2016-05-30] MEDS: *HR* OxyCODONE Immed Rel 15 MG TABLET PO PRN ×2 (09:21→17:05)
[2016-05-30] MEDS: Lactobacillus 1 EACH CAP.SPRINK PO SCH (09:21)
[2016-05-30] MEDS: Gabapentin 400 MG CAPSULE PO SCH ×2 (09:21→20:36)
[2016-05-30] MEDS: Pantoprazole 40 MG VIAL IV SCH (09:24)
[2016-05-30] MEDS: *HR* Enoxaparin 40 MG/0.4 ML SYRINGE SQ SCH (09:24)
[2016-05-30] MEDS: Levofloxacin 750 MG/150 ML 750 MG/150 ML BAG IVPB SCH (09:25)
[2016-05-30] MEDS: (Dextroamphetamine/Amphetamine [Adderall 20 Mg Tablet PO SCH (09:26)
[2016-05-30] MEDS: *HR* Morphine 2 MG/ML SYRINGE IV PRN ×3 (12:40→21:40)
--- NOTE | 2016-05-30 13:42 | Discharge Summary ---
Date of Encounter: 05/30/16 Time of Encounter: 13:40 - Discharge Diagnosis (1) Acute and chronic respiratory failure with hypoxia Priority: Primary Status: Acute (2) COPD (chronic obstructive pulmonary disease) Priority: Secondary Status: Acute Qualifiers: COPD type: COPD with acute exacerbation Qualified Code(s): J44.1 - Chronic obstructive pulmonary disease with (acute) exacerbation (3) Leukopenia Priority: Secondary Status: Resolved Qualifiers: Neutropenia type: due to infection Qualified Code(s): D70.3 - Neutropenia due to infection (4) Sepsis Priority: Secondary Status: Ruled-out Qualifiers: Sepsis type: sepsis due to unspecified organism Qualified Code(s): A41.9 - Sepsis, unspecified organism (5) Neuropathy Priority: Secondary Status: Chronic (6) Non-small cell carcinoma of left lung, stage 4 Priority: Secondary Status: Chronic (7) Weakness Priority: Secondary Status: Chronic (8) Hypokalemia Priority: Secondary Status: Resolved - Discharge Medications Prescriptions: Levofloxacin [Levaquin] 500 mg PO DAILY #5 tablet PredniSONE 10 mg PO DAILY 12 Days Home Medications: Atorvastatin [Lipitor] 10 mg PO DAILY 12/28/14 [History] Budesonide/Formoterol 160/4.5 [Symbicort] 1 puff IH BIDR 12/28/14 [History] Duloxetine HCl [Cymbalta] 60 mg PO BID 12/28/14 [History] Furosemide [Lasix] 40 mg PO DAILY 12/28/14 [History] Gabapentin [Neurontin] 800 mg PO BID 12/28/14 [History] Ipratropium/Albuterol Sulfate [Combivent Respimat Inhal [place]] 2 puff IH Q4-6H PRN 12/28/14 [History] Lidocaine Viscous Oral Soln 30 ml MM ONCE PRN #1 solution 12/28/14 [Rx] Morphine Sulfate/D5w [Morphine-D5w 100 mg/100 ml] 0 mg INTRACATH AD PRN [History] Nortriptyline [Pamelor] 10 mg PO HS 12/28/14 [History] Sennosides/Docusate Sodium [Senna Plus] 2 each PO DAILY PRN 12/28/14 [History] Gabapentin [Neurontin] 1,600 mg PO HS 07/05/15 [History] OxyCODONE Immed Rel [Roxicodone 15 MG] 15 mg PO Q6HR PRN #40 tablet 07/09/15 [Rx ] Levothyroxine [Synthroid] 175 mcg PO DAILY #90 tablet 08/15/15 [Rx] Dextroamphetamine/Amphetamine [Adderall 20 mg Tablet] 20 mg PO DAILY 08/21/15 [ History] Cholecalciferol (Vitamin D3) [Vitamin D3] 1,000 unit PO DAILY 12/27/15 [History] Lactobacillus Combination No.8 [Adult Probiotic] 1 mg PO DAILY 12/27/15 [History ] Benztropine [Cogentin] 1 mg PO HS PRN 01/14/16 [History] Oxygen 3 - 3.5 l NS CONT 01/14/16 [History] Potassium Chloride 20 meq PO DAILY #90 tab.er.prt 01/17/16 [Rx] Pantoprazole Sodium [Protonix] 40 mg PO DAILY #90 granpkt.dr 03/26/16 [Rx] PredniSONE 5 mg PO DAILY #150 tablet 03/26/16 [Rx] Ammonium Lactate [Telma-Hydrolac] 1 appl TP BID 05/28/16 [History] Ipratropium/Albuterol Neb [Duoneb] 3 ml IH QID PRN 05/28/16 [History] Levofloxacin [Levaquin] 500 mg PO DAILY #5 tablet 05/30/16 [Rx] PredniSONE 10 mg PO DAILY 12 Days 05/30/16 [Rx] Allergies/Adverse Reactions: Allergies No Known Allergies Allergy (Verified 03/26/16 15:48) Date of admission: 05/28/16 07:53 Primary care physician: Mike Leger Jr, MD Consults: 05/28/16 10:00 Consult to Nutrition [CONS] Routine Comment: Consulting Provider: NUTRITION Reason for Dietary Consult: Supplemental Nutrition Consult to Telephone Technician [CONS] Routine Reason for SW Consult: possible hh has brandon home o2 05/28/16 14:39 Consult to Speech Therapy [CONS] Routine Comment: Evaluate, develop and implement POC Reason for Consult: aspiration Call Completed: No 05/29/16 10:45 Consult to Occupational Therapy [CONS] Routine Comment: Evaluate, develop and implement POC Consult to Physical Therapy [CONS] Routine Comment: Evaluate, develop and implement POC Discharging clinician: Jamar Cespedes Anticipated date of discharge: 06/01/16 - Patient Status Disposition: Home Health Service Condition: Good Functional capacity at discharge: uses cane/walker Overall status at discharge: patient is progressing back to baseline - Discharge Instructions Instructions: Chronic Obstructive Pulmonary Disease (DC) Follow Up With: Mike Leger Jr, MD [Primary Care Provider] - 06/08/16 9:30 am Additional Instructions: With Pulmonology in 1-2 weeks With Oncology in 1-2 weeks - Diet and Activity Activity: increase activity as tolerated, wear oxygen at all times Diet: low fat, low cholesterol, low salt diet Hospital course: Mr. Soria is a 60 year old male history of lung cancer, COPD, chronic back pain with the morphine pain pump, who presented to the ER with signs and symptoms of sepsis and shortness of breath. He was diagnosed with acute on chronic respiratory failure with hypoxia and was treated with oxygen supplementation. He initially required BiPAP. He has been treated with bronchodilator nebs, intravenous steroids, IV antibiotics. Chest x-ray done initially showed chronic infiltrative changes but given the patient's presentation he was started on broad-spectrum antibiotics. His blood cultures have been negative. Initially patient was supposed to be discharged home with home health. However he has continued to require intermittent use of BiPAP. Pulmonology was consulted. Recommend continuing and management with bronchodilators and intermittent BiPAP use and a short course of levofloxacin. The patient continued to require intermittent BiPAP use, they recommended the patient be discharged to shelter facility for BiPAP use and pulmonary rehabilitation. Presently, the social media specialist is working on this. Patient will be discharged to shelter facility once he is been approved for it. - Time Spent with Patient Total time spent providing and/or coordinating discharge services: Greater than 30 minutes (40 min) - Constitutional Vitals: Temp Pulse Resp BP Pulse Ox 98.5 F 95 16 160/103 91 L 05/30/16 11:23 05/30/16 11:23 05/30/16 11:23 05/30/16 11:23 05/30/16 11:23 General appearance: Present: cooperative, mild distress, A&O X 3, pleasant, underweight, answers questions appropriately - Respiratory Respiratory exam: Present: CTAB. Absent: accessory muscle use, rales, rhonchi, wheezes - Cardiovascular Cardiovascular exam: Present: RRR, +S1, +S2. Absent: diastolic murmur, gallop, rubs, systolic murmur - GI/Abdominal GI/Abdominal exam: Present: normal bowel sounds, soft, no peritoneal signs. Absent: distended, tenderness - Extremities Exam Extremities exam: Present: warm, radial pulses palpable and symetrical. Absent : calf tenderness, cyanotic, pedal edema - Neurological Exam Neurological exam: Present: oriented X3, no focal deficits. Absent: pronater drift, facial droop, speech deficit - Attending Attestation This document has been at least partially created by [employer] recognition technology by Dr. Cespedes. Errors in grammar, wording or other phrases may exist. If errors are found after the documentation is signed, they will be addressed individually in the addendum section of this document when appropriate.
--- NOTE | 2016-05-30 13:50 | Physician Discharge Referral ---
Home Health/Hosp Referral Info Transfer to: Home Health Provider in Charge Post Discharge: PCP - Diagnosis (1) Acute and chronic respiratory failure with hypoxia Priority: Primary Status: Acute (2) COPD (chronic obstructive pulmonary disease) Priority: Secondary Status: Acute (3) Leukopenia Priority: Secondary Status: Resolved (4) Sepsis Priority: Secondary Status: Ruled-out (5) Neuropathy Priority: Secondary Status: Chronic (6) Non-small cell carcinoma of left lung, stage 4 Priority: Secondary Status: Chronic (7) Weakness Priority: Secondary Status: Chronic (8) Hypokalemia Priority: Secondary Status: Resolved - Respiratory Orders Oxygen / L per min (3L/min) Smoking Cessation: Smoking cessation has been advised. For more information, call the [employer] Tobacco Quit Line at 3-851-IHQA-NOW. - Diet/Nutrition Diet/Nutrition Orders: Cardiac - Activity Activity Orders: Walker - Services Needed Following services are medically necessary services: Nursing, Physical Therapy, Occupational Therapy - Transfer Medications Prescriptions: Levofloxacin [Levaquin] 500 mg PO DAILY #5 tablet PredniSONE 10 mg PO DAILY 12 Days Home Medications: Atorvastatin [Lipitor] 10 mg PO DAILY 12/28/14 [History] Budesonide/Formoterol 160/4.5 [Symbicort] 1 puff IH BIDR 12/28/14 [History] Duloxetine HCl [Cymbalta] 60 mg PO BID 12/28/14 [History] Furosemide [Lasix] 40 mg PO DAILY 12/28/14 [History] Gabapentin [Neurontin] 800 mg PO BID 12/28/14 [History] Ipratropium/Albuterol Sulfate [Combivent Respimat Inhal [place]] 2 puff IH Q4-6H PRN 12/28/14 [History] Lidocaine Viscous Oral Soln 30 ml MM ONCE PRN #1 solution 12/28/14 [Rx] Morphine Sulfate/D5w [Morphine-D5w 100 mg/100 ml] 0 mg INTRACATH AD PRN [History] Nortriptyline [Pamelor] 10 mg PO HS 12/28/14 [History] Sennosides/Docusate Sodium [Senna Plus] 2 each PO DAILY PRN 12/28/14 [History] Gabapentin [Neurontin] 1,600 mg PO HS 07/05/15 [History] OxyCODONE Immed Rel [Roxicodone 15 MG] 15 mg PO Q6HR PRN #40 tablet 07/09/15 [Rx ] Levothyroxine [Synthroid] 175 mcg PO DAILY #90 tablet 08/15/15 [Rx] Dextroamphetamine/Amphetamine [Adderall 20 mg Tablet] 20 mg PO DAILY 08/21/15 [ History] Cholecalciferol (Vitamin D3) [Vitamin D3] 1,000 unit PO DAILY 12/27/15 [History] Lactobacillus Combination No.8 [Adult Probiotic] 1 mg PO DAILY 12/27/15 [History ] Benztropine [Cogentin] 1 mg PO HS PRN 01/14/16 [History] Oxygen 3 - 3.5 l NS CONT 01/14/16 [History] Potassium Chloride 20 meq PO DAILY #90 tab.er.prt 01/17/16 [Rx] Pantoprazole Sodium [Protonix] 40 mg PO DAILY #90 granpkt. 03/26/16 [Rx] PredniSONE 5 mg PO DAILY #150 tablet 03/26/16 [Rx] Ammonium Lactate [Telma-Hydrolac] 1 appl TP BID 05/28/16 [History] Ipratropium/Albuterol Neb [Duoneb] 3 ml IH QID PRN 05/28/16 [History] Levofloxacin [Levaquin] 500 mg PO DAILY #5 tablet 05/30/16 [Rx] PredniSONE 10 mg PO DAILY 12 Days 05/30/16 [Rx] Allergies/Adverse Reactions: Allergies No Known Allergies Allergy (Verified 03/26/16 15:48) Certification: Further, I certify that my clinical findings support that this patient is homebound (i.e. absences from home require considerable and taxing effort and are for medical reasons or jainism services or infrequently or short duration when for other reasons) because: Homebound Reason: Patient requires assistance of a person or device to safely leave home, Severity of cardiac or pulmonary status limits activity tolerance Attestation: My signature below is to certify that this patient is under my care and that I, or nurse practitioner, or a physician's fleet administrative assistant working with me, has a face-to -face encounter with this patient.
[2016-05-30] MEDS: Furosemide 40 MG TABLET PO SCH (18:33)
[2016-05-30 22:54] LABS: ABG Base Excess 10.9 mEq/L (-2.0 to 3.0); ABG HCO3 36.4 mEQ/L (21-27); ABG Oxygen Saturation 98 % (95-98); ABG PCO2 50 mmHg (35-45); ABG PH 7.47 pH Units (7.32-7.45); ABG PO2 99 mmHg (85-104); ABG TCO2 37.9 mEq/L (20-26)
[2016-05-30 22:55] LABS: Blood Gas FiO2 30 %
[2016-05-31] MEDS: *HR* Morphine 2 MG/ML SYRINGE IV PRN ×6 (03:36→23:03)
[2016-05-31] MEDS: Ipratropium/Albuterol Neb 3 ML IH SCH ×4 (03:50→21:15)
[2016-05-31] MEDS: Cefepime HCl 1,000 MG in D5% in Water (Mini-Bag+) 100 ML IVPB SCH (05:48)
[2016-05-31] MEDS: (Dextroamphetamine/Amphetamine [Adderall 20 Mg Tablet PO SCH (07:21)
[2016-05-31] MEDS: Pantoprazole 40 MG VIAL IV SCH (08:31)
[2016-05-31] MEDS: Gabapentin 400 MG CAPSULE PO SCH ×2 (08:32→22:11)
[2016-05-31] MEDS: predniSONE 20 MG TABLET PO SCH (08:32)
[2016-05-31] MEDS: *HR* Enoxaparin 40 MG/0.4 ML SYRINGE SQ SCH (08:32)
[2016-05-31] MEDS: Lactobacillus 1 EACH CAP.SPRINK PO SCH (08:32)
[2016-05-31] MEDS: Levofloxacin 750 MG/150 ML 750 MG/150 ML BAG IVPB SCH (08:32)
[2016-05-31] MEDS: Furosemide 40 MG TABLET PO SCH (08:32)
--- NOTE | 2016-05-31 11:13 | Pulmonology Consult Note ---
Date of Encounter: 05/31/16 Time of Encounter: 11:11 Assessment and Plan (1) Acute and chronic respiratory failure with hypoxia Current Visit: Yes Status: Acute Multifactorial in etiology and due to advanced COPD, chest Maier's dysfunction related to kyphoscoliosis, prior lung cancer status post radiation, and overall debility. He was living independently at home prior to this exacerbation, and the goal would be to wean him off BiPAP completely if possible. * We will schedule BiPAP nightly, and he can use it as an as-needed basis during the daytime hours. * If we are unable to wean him off nightly BiPAP, we may need to consider retirement facility placement for BiPAP administration as he currently does not qualify for home BiPAP use * Wean oxygen via nasal cannula during daytime hours. Continue out of bed activities to tolerance in order to combat atelectasis and debility. (2) COPD with acute exacerbation Current Visit: Yes Status: Acute Agree with current medical management with scheduled plus as needed bronchodilators as well as by mouth prednisone regimen. He will need a 2 week steroid taper following discharge. (3) Abnormal chest x-ray Current Visit: Yes Status: Acute Chronic changes related to lung cancer that has been treated with chemotherapy and radiation. I see no clinical or radiographic evidence of pneumonia. I discontinued the cefepime. I have placed a stop date on the levofloxacin in order to complete a 5 day course for acute exacerbation of COPD. Pulmonary will continue to follow. History of Present Illness Consult date: 05/31/16 Requesting physician: Jamar Cespedes Reason for consult: COPD Chief complaint: dyspnea History of present illness: 60-year-old white male with a medical history significant for COPD and lung cancer who presents with acute on chronic respiratory failure. Patient reports approximately 2-3 days prior to admission he had noted progressive dyspnea. He had filled an outpatient prescription for antibiotics to see if this would help, but there is no change in his breathing. This was progressive in nature and worsened with any activity. He presented emergency department and was placed on BiPAP. The patient states that he was initially fairly BiPAP dependent, but he has been slowly weaned off during the daytime hours. He now requires BiPAP on an as-needed basis, typically at night when he tires out. No cough or sputum production. No fevers or chills. No exertional chest discomfort, diaphoresis, or nausea/vomiting. Past Med Surg Social Fam HX - Past Medical History Medical history: arthritis, cancer, COPD, GERD, hyperlipidemia, hypertension, malignancy, migraine, thyroid disease, other Psychiatric history: depression - Past Surgical History Surgical History: orthopedic, other, other - Social History Smoking Status: Former smoker Packs per day: 1 Smokeless Tobacco Status: No Alcohol use: none Drug use: none - Family History Mother Living Status: Still Living Hx Family Cardiac Disorders: Yes Hx Family Respiratory Disorders: Yes (COPD) Hx Family Neurologic Disorders: Yes (dementia) Father Living Status: Still Living Hx Family Cardiac Disorders: Yes (CHF, COPD) Hx Family Endocrine Disorder: Yes (DM) Medications and Allergies Atorvastatin [Lipitor] 10 mg PO DAILY 12/28/14 [History] Budesonide/Formoterol 160/4.5 [Symbicort] 1 puff IH BIDR 12/28/14 [History] Duloxetine HCl [Cymbalta] 60 mg PO BID 12/28/14 [History] Furosemide [Lasix] 40 mg PO DAILY 12/28/14 [History] Gabapentin [Neurontin] 800 mg PO BID 12/28/14 [History] Ipratropium/Albuterol Sulfate [Combivent Respimat Inhal [place]] 2 puff IH Q4-6H PRN 12/28/14 [History] Lidocaine Viscous Oral Soln 30 ml MM ONCE PRN #1 solution 12/28/14 [Rx] Morphine Sulfate/D5w [Morphine-D5w 100 mg/100 ml] 0 mg INTRACATH AD PRN [History] Nortriptyline [Pamelor] 10 mg PO HS 12/28/14 [History] Sennosides/Docusate Sodium [Senna Plus] 2 each PO DAILY PRN 12/28/14 [History] Gabapentin [Neurontin] 1,600 mg PO HS 07/05/15 [History] OxyCODONE Immed Rel [Roxicodone 15 MG] 15 mg PO Q6HR PRN #40 tablet 07/09/15 [Rx ] Levothyroxine [Synthroid] 175 mcg PO DAILY #90 tablet 08/15/15 [Rx] Dextroamphetamine/Amphetamine [Adderall 20 mg Tablet] 20 mg PO DAILY 08/21/15 [ History] Cholecalciferol (Vitamin D3) [Vitamin D3] 1,000 unit PO DAILY 12/27/15 [History] Lactobacillus Combination No.8 [Adult Probiotic] 1 mg PO DAILY 12/27/15 [History ] Benztropine [Cogentin] 1 mg PO HS PRN 01/14/16 [History] Oxygen 3 - 3.5 l NS CONT 01/14/16 [History] Potassium Chloride 20 meq PO DAILY #90 tab.er.prt 01/17/16 [Rx] Pantoprazole Sodium [Protonix] 40 mg PO DAILY #90 granpkt. 03/26/16 [Rx] PredniSONE 5 mg PO DAILY #150 tablet 03/26/16 [Rx] Ammonium Lactate [Telma-Hydrolac] 1 appl TP BID 05/28/16 [History] Ipratropium/Albuterol Neb [Duoneb] 3 ml IH QID PRN 05/28/16 [History] Levofloxacin [Levaquin] 500 mg PO DAILY #5 tablet 05/30/16 [Rx] PredniSONE 10 mg PO DAILY 12 Days 05/30/16 [Rx] Allergies No Known Allergies Allergy (Verified 03/26/16 15:48) All Systems: A 10-system review of systems was performed and is negative for pertinent findings except as documented above in the HPI. Physical Examination Vital Signs: Vital Signs, Last 4 Hours Pulse Resp Pulse Ox 05/31/16 10:38 15 95 05/31/16 08:43 94 95 General: Frail and chronically ill-appearing man who appears older than his stated age Eyes: nonicteric ENT: oropharynx moist Neck: supple, no lymphadenopathy Lungs: Bilateral inspiratory and expiratory rhonchi noted, and expiratory wheezing noted as well Cardiovascular: regular rate and rhythm Gastrointestinal: normoactive bowel sounds, soft, non-tender, non-distended Integumentary: normal Extremities: no cyanosis, no edema Musculoskeletal: Significant kyphoscoliosis noted Neuro: normal mental status, non-focal exam Psych: mood appropriate, affect normal Results - Laboratory Findings CBC and BMP: 05/30/16 04:10 05/30/16 04:10 ABG ABG pH 7.47 pH Units (7.32-7.45) H 05/30/16 22:43 ABG pCO2 50 mmHg (35-45) H 05/30/16 22:43 ABG pO2 99 mmHg (85-104) 05/30/16 22:43 ABG O2 Saturation 98 % (95-98) 05/30/16 22:43 PT/INR, D-dimer PT 11.9 Seconds (9.4-12.1) 05/28/16 05:52 Abnormal lab findings: Abnormal lab results WBC 12.2 K/mcL (4.3-11.1) H 05/30/16 04:10 RBC 3.40 M/mcL (4.19-5.50) L 05/30/16 04:10 Hgb 9.6 g/dL (12.9-16.9) L 05/30/16 04:10 Hct 30.7 % (37.5-50.1) L 05/30/16 04:10 MCHC 31.3 g/dL (31.6-35.5) L 05/30/16 04:10 Plt Count 100 K/mcL (140-400) L 05/30/16 04:10 Neutrophils # 10.9 K/mcL (1.6-8.9) H 05/30/16 04:10 Lymphocytes # 0.3 K/mcL (0.6-4.6) L 05/30/16 04:10 Platelet Estimate Decreased (Normal) L 05/29/16 04:25 Immature Plt Fraction 7.6 % (1.1-6.1) H 05/28/16 05:52 ABG pH 7.47 pH Units (7.32-7.45) H 05/30/16 22:43 ABG pCO2 50 mmHg (35-45) H 05/30/16 22:43 ABG HCO3 36.4 mEQ/L (21-27) H 05/30/16 22:43 ABG Total CO2 37.9 mEq/L (20-26) H 05/30/16 22:43 ABG Base Excess 10.9 mEq/L (-2.0 to 3.0) H 05/30/16 22:43 Carbon Dioxide 30 mEq/L (19-29) H 05/30/16 04:10 Creatinine 0.58 mg/dL (0.72-1.25) L 05/30/16 04:10 Glucose 121 mg/dL (70-99) H 05/30/16 04:10 POC Glucose 126 (58-89) H 05/29/16 16:30 Phosphorus 2.0 mg/dL (2.3-4.7) L 05/28/16 05:52 Magnesium 1.5 mg/dL (1.6-2.6) L 05/28/16 05:52 Total Bilirubin 1.5 mg/dL (0.2-1.2) H 05/28/16 05:52 Direct Bilirubin 0.6 mg/dL (0.0-0.5) H 05/28/16 05:52 Globulin 3.6 g/dL (2.4-3.5) H 05/28/16 05:52 Vancomycin Trough 9.7 mcg/mL (10-20) L 05/31/16 04:00 - Clinical Findings Intake & Output: Intake & Output 05/30/16 05/31/16 05/31/16 23:59 07:59 15:59 Intake Total 200 / 200 200 / 200 270 / 270 Output Total 1650 / 1650 1250 / 1250 Balance -1450 / -1450 -1050 / -1050 270 / 270 Weight 58.598 kg Consult Discharge Plan - Plan Instructions: Chronic Obstructive Pulmonary Disease (DC) Additional Instructions: With Pulmonology in 1-2 weeks With Oncology in 1-2 weeks Referrals: Mike Leger Jr, MD [Primary Care Provider] - 06/08/16 9:30 am Prescriptions: Levofloxacin [Levaquin] 500 mg PO DAILY #5 tablet PredniSONE 10 mg PO DAILY 12 Days
--- NOTE | 2016-05-31 11:59 | Internal Med Progress Note ---
Date of Encounter: 05/31/16 Time of Encounter: 09:30 - Assessment and plan (1) Acute and chronic respiratory failure with hypoxia Current Visit: Yes Status: Acute Assessment and plan: Continue current management. Consult to pulmonology. We will follow recommendations. Continue BiPAP use. The patient cannot be weaned off BiPAP, he will need to be placed to skilled rehabilitation. (2) COPD (chronic obstructive pulmonary disease) Current Visit: Yes Status: Acute Assessment and plan: Continue current management. On prednisone taper, DuoNeb's. Complete short course of levofloxacin. Qualifiers: COPD type: COPD with acute exacerbation Qualified Code(s): J44.1 - Chronic obstructive pulmonary disease with (acute) exacerbation (3) Leukopenia Current Visit: Yes Status: Resolved Qualifiers: Neutropenia type: due to infection Qualified Code(s): D70.3 - Neutropenia due to infection (4) Sepsis Current Visit: Yes Status: Ruled-out Qualifiers: Sepsis type: sepsis due to unspecified organism Qualified Code(s): A41.9 - Sepsis, unspecified organism (5) Neuropathy Current Visit: No Status: Chronic Assessment and plan: On gabapentin (6) Non-small cell carcinoma of left lung, stage 4 Current Visit: No Status: Chronic (7) Weakness Current Visit: Yes Status: Chronic (8) Hypokalemia Current Visit: No Status: Resolved - Subjective Interval history: Patient was supposed to be discharged yesterday but began to have increased respiratory distress yesterday evening. Had to be placed back on BiPAP. He is just now been taken off BiPAP and placed back on nasal cannula. Denies any chest pain. No palpitations. - Constitutional Vitals: Temp Pulse Resp BP Pulse Ox 97.9 F 94 15 122/78 95 05/31/16 03:30 05/31/16 11:48 05/31/16 10:38 05/31/16 03:30 05/31/16 10:38 General appearance: Present: cooperative, mild distress, A&O X 3, pleasant, underweight, answers questions appropriately - Respiratory Respiratory exam: Present: prolonged expiratory phase, wheezes. Absent: accessory muscle use, rales, rhonchi Additional comments: Diminished air entry bilaterally, coarse breath sounds - Cardiovascular Cardiovascular exam: Present: RRR, +S1, +S2. Absent: diastolic murmur, gallop, rubs, systolic murmur - GI/Abdominal GI/Abdominal exam: Present: normal bowel sounds, soft, no peritoneal signs. Absent: distended, tenderness - Extremities Exam Extremities exam: Present: warm, radial pulses palpable and symetrical. Absent : calf tenderness, cyanotic, pedal edema - Neurological Exam Neurological exam: Present: alert, oriented X3, no focal deficits. Absent: facial droop, speech deficit - Skin Skin exam: Present: dry, intact Internal Medicine: Result - Labs CBC & Chem 7: 05/30/16 04:10 05/30/16 04:10 - ABG Interpretation ABG results: ABG ABG pH 7.47 pH Units (7.32-7.45) H 05/30/16 22:43 ABG pCO2 50 mmHg (35-45) H 05/30/16 22:43 ABG pO2 99 mmHg (85-104) 05/30/16 22:43 ABG O2 Saturation 98 % (95-98) 05/30/16 22:43 PT/INR, D-dimer PT 11.9 Seconds (9.4-12.1) 05/28/16 05:52 - Impressions Impressions Chest X-Ray 05/30/16 17:15 IMPRESSION: 1. Stable left lower lobe infiltrate, favored to be secondary to pneumonia. 2. Stable fullness to the left hilar region, likely due to post treatment change. D/ / Td Sorto MD / Td Sorto MD Interpreting Provider: Td Sorto MD Chest X-Ray 05/30/16 22:41 IMPRESSION: 1. Unchanged left basilar opacity, potentially treated disease, atelectasis, and/or pneumonia. 2. Questionable left pleural effusion. 3. Unchanged partial collapse of the right middle lobe. 4. 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 D/ / Heriberto Walsh MD / Heriberto Walsh MD Interpreting Provider: Heriberto Walsh MD Consult Discharge Plan - Plan Instructions: Chronic Obstructive Pulmonary Disease (DC) Additional Instructions: With Pulmonology in 1-2 weeks With Oncology in 1-2 weeks Referrals: Mike Leger Jr, MD [Primary Care Provider] - 06/08/16 9:30 am Prescriptions: Levofloxacin [Levaquin] 500 mg PO DAILY #5 tablet PredniSONE 10 mg PO DAILY 12 Days - Attending Attestation This document has been at least partially created by Spec[employer] recognition technology by Dr. Cespedes. Errors in grammar, wording or other phrases may exist. If errors are found after the documentation is signed, they will be addressed individually in the addendum section of this document when appropriate. Medical Decision Making - MDM Narrative Medical decision making narrative: High risk for complications - Medical Records Medical records reviewed: Yes I reviewed the patient's medical records. - Lab Data Lab results reviewed: Yes I reviewed the patient's lab results. Result diagrams: 05/30/16 04:10 05/30/16 04:10 Lab Results 05/28/16 05/28/16 05/28/16 Range/Units 08:23 09:16 10:52 WBC (4.3-11.1) K/mcL RBC (4.19-5.50) M/mcL Hgb (12.9-16.9) g/dL Hct (37.5-50.1) % MCV (83.0-100.0) fL MCH (28.0-33.3) pg MCHC (31.6-35.5) g/dL RDW (11.5-14.5) % Plt Count (140-400) K/mcL MPV (9.4-12.4) fL Immature Gran % (0-4) % Seg Neutrophils % % Lymphocytes % % Monocytes % % Eosinophils % % Basophils % % Neutrophils # (1.6-8.9) K/mcL Lymphocytes # (0.6-4.6) K/mcL Monocytes # (0.0-1.3) K/mcL Eosinophils # (0.0-0.6) K/mcL Basophils # (0.0-0.2) K/mcL Platelet Estimate (Normal) ABG pH 7.41 (7.32-7.45) pH Units ABG pCO2 53 H (35-45) mmHg ABG pO2 72 L (85-104) mmHg ABG HCO3 33.6 H (21-27) mEQ/L ABG Total CO2 35.2 H (20-26) mEq/L ABG O2 Saturation 94 L (95-98) % ABG Base Excess 7.7 H (-2.0 to 3.0) mEq/L Blood Gas Modality BIPAP Inspired O2 40 % Sodium (136-145) mEq/L Potassium (3.5-4.5) mEq/L Chloride (98-109) mEq/L Carbon Dioxide (19-29) mEq/L BUN (8-26) mg/dL Creatinine (0.72-1.25) mg/dL Est GFR ( Amer) (> 60) Est GFR (Non-Af Amer) (> 60) BUN/Creatinine Ratio (6-26) Glucose (70-99) mg/dL POC Glucose 81 (58-89) Calculated Osmolality (280-300) Lactic Acid 1.5 (0.5-2.2) mmol/L Calcium (8.6-10.8) mg/dL Troponin I (0-0.03) ng/mL Urine Color (Yellow) Urine Clarity (Clear) Urine pH (5.0-8.0) pH Units Ur Specific [place] (1.010-1.025) Urine Protein (Neg-Trace) mg/dL Urine Glucose (UA) (Normal) mg/dL Urine Ketones (Negative) mg/dL Urine Blood (Negative) Urine Nitrite (Negative) Urine Bilirubin (Negative) Urine Urobilinogen (Normal) mg/dL Ur Leukocyte Esterase (Negative) Ur Culture Indicated? (NO) Vancomycin Trough (10-20) mcg/mL 05/28/16 05/28/16 05/28/16 Range/Units 11:33 11:52 12:15 WBC (4.3-11.1) K/mcL RBC (4.19-5.50) M/mcL Hgb (12.9-16.9) g/dL Hct (37.5-50.1) % MCV (83.0-100.0) fL MCH (28.0-33.3) pg MCHC (31.6-35.5) g/dL RDW (11.5-14.5) % Plt Count (140-400) K/mcL MPV (9.4-12.4) fL Immature Gran % (0-4) % Seg Neutrophils % % Lymphocytes % % Monocytes % % Eosinophils % % Basophils % % Neutrophils # (1.6-8.9) K/mcL Lymphocytes # (0.6-4.6) K/mcL Monocytes # (0.0-1.3) K/mcL Eosinophils # (0.0-0.6) K/mcL Basophils # (0.0-0.2) K/mcL Platelet Estimate (Normal) ABG pH (7.32-7.45) pH Units ABG pCO2 (35-45) mmHg ABG pO2 (85-104) mmHg ABG HCO3 (21-27) mEQ/L ABG Total CO2 (20-26) mEq/L ABG O2 Saturation (95-98) % ABG Base Excess (-2.0 to 3.0) mEq/L Blood Gas Modality Inspired O2 % Sodium (136-145) mEq/L Potassium (3.5-4.5) mEq/L Chloride (98-109) mEq/L Carbon Dioxide (19-29) mEq/L BUN (8-26) mg/dL Creatinine (0.72-1.25) mg/dL Est GFR ( Amer) (> 60) Est GFR (Non-Af Amer) (> 60) BUN/Creatinine Ratio (6-26) Glucose (70-99) mg/dL POC Glucose 124 H (58-89) Calculated Osmolality (280-300) Lactic Acid (0.5-2.2) mmol/L Calcium (8.6-10.8) mg/dL Troponin I 0.06 H* (0-0.03) ng/mL Urine Color Yellow (Yellow) Urine Clarity Clear (Clear) Urine pH 6.0 (5.0-8.0) pH Units Ur Specific [place] 1.014 (1.010-1.025) Urine Protein Negative (Neg-Trace) mg/dL Urine Glucose (UA) Normal (Normal) mg/dL Urine Ketones Negative (Negative) mg/dL Urine Blood Negative (Negative) Urine Nitrite Negative (Negative) Urine Bilirubin Negative (Negative) Urine Urobilinogen Normal (Normal) mg/dL Ur Leukocyte Esterase Negative (Negative) Ur Culture Indicated? NO (NO) Vancomycin Trough (10-20) mcg/mL 05/28/16 05/29/16 05/29/16 Range/Units 18:11 04:25 04:25 WBC 11.3 H D (4.3-11.1) K/mcL RBC 3.32 L (4.19-5.50) M/mcL Hgb 9.5 L D (12.9-16.9) g/dL Hct 29.7 L (37.5-50.1) % MCV 89.5 (83.0-100.0) fL MCH 28.6 (28.0-33.3) pg MCHC 32.0 (31.6-35.5) g/dL RDW 14.3 (11.5-14.5) % Plt Count 83 L (140-400) K/mcL MPV 11.7 (9.4-12.4) fL Immature Gran % 2.0 (0-4) % Seg Neutrophils % 90.4 % Lymphocytes % 3.1 % Monocytes % 4.5 % Eosinophils % 0.0 % Basophils % 0.0 % Neutrophils # 10.2 H (1.6-8.9) K/mcL Lymphocytes # 0.4 L (0.6-4.6) K/mcL Monocytes # 0.5 (0.0-1.3) K/mcL Eosinophils # 0.0 (0.0-0.6) K/mcL Basophils # 0.0 (0.0-0.2) K/mcL Platelet Estimate Decreased L (Normal) ABG pH (7.32-7.45) pH Units ABG pCO2 (35-45) mmHg ABG pO2 (85-104) mmHg ABG HCO3 (21-27) mEQ/L ABG Total CO2 (20-26) mEq/L ABG O2 Saturation (95-98) % ABG Base Excess (-2.0 to 3.0) mEq/L Blood Gas Modality Inspired O2 % Sodium 137 (136-145) mEq/L Potassium 4.1 D (3.5-4.5) mEq/L Chloride 103 (98-109) mEq/L Carbon Dioxide 27 (19-29) mEq/L BUN 13 D (8-26) mg/dL Creatinine 0.58 L (0.72-1.25) mg/dL Est GFR ( Amer) > 60 (> 60) Est GFR (Non-Af Amer) > 60 (> 60) BUN/Creatinine Ratio 22 (6-26) Glucose 157 H (70-99) mg/dL POC Glucose (58-89) Calculated Osmolality 287 (280-300) Lactic Acid (0.5-2.2) mmol/L Calcium 9.0 (8.6-10.8) mg/dL Troponin I 0.03 (0-0.03) ng/mL Urine Color (Yellow) Urine Clarity (Clear) Urine pH (5.0-8.0) pH Units Ur Specific [place] (1.010-1.025) Urine Protein (Neg-Trace) mg/dL Urine Glucose (UA) (Normal) mg/dL Urine Ketones (Negative) mg/dL Urine Blood (Negative) Urine Nitrite (Negative) Urine Bilirubin (Negative) Urine Urobilinogen (Normal) mg/dL Ur Leukocyte Esterase (Negative) Ur Culture Indicated? (NO) Vancomycin Trough (10-20) mcg/mL 05/29/16 05/29/16 05/30/16 Range/Units 16:30 17:28 04:10 WBC 12.2 H (4.3-11.1) K/mcL RBC 3.40 L (4.19-5.50) M/mcL Hgb 9.6 L (12.9-16.9) g/dL Hct 30.7 L (37.5-50.1) % MCV 90.3 (83.0-100.0) fL MCH 28.2 (28.0-33.3) pg MCHC 31.3 L (31.6-35.5) g/dL RDW 14.4 (11.5-14.5) % Plt Count 100 L (140-400) K/mcL MPV 12.1 (9.4-12.4) fL Immature Gran % 1.7 (0-4) % Seg Neutrophils % 89.1 % Lymphocytes % 2.8 % Monocytes % 6.4 % Eosinophils % 0.0 % Basophils % 0.0 % Neutrophils # 10.9 H (1.6-8.9) K/mcL Lymphocytes # 0.3 L (0.6-4.6) K/mcL Monocytes # 0.8 (0.0-1.3) K/mcL Eosinophils # 0.0 (0.0-0.6) K/mcL Basophils # 0.0 (0.0-0.2) K/mcL Platelet Estimate (Normal) ABG pH (7.32-7.45) pH Units ABG pCO2 (35-45) mmHg ABG pO2 (85-104) mmHg ABG HCO3 (21-27) mEQ/L ABG Total CO2 (20-26) mEq/L ABG O2 Saturation (95-98) % ABG Base Excess (-2.0 to 3.0) mEq/L Blood Gas Modality Inspired O2 % Sodium (136-145) mEq/L Potassium (3.5-4.5) mEq/L Chloride (98-109) mEq/L Carbon Dioxide (19-29) mEq/L BUN (8-26) mg/dL Creatinine (0.72-1.25) mg/dL Est GFR ( Amer) (> 60) Est GFR (Non-Af Amer) (> 60) BUN/Creatinine Ratio (6-26) Glucose (70-99) mg/dL POC Glucose 126 H (58-89) Calculated Osmolality (280-300) Lactic Acid (0.5-2.2) mmol/L Calcium (8.6-10.8) mg/dL Troponin I (0-0.03) ng/mL Urine Color (Yellow) Urine Clarity (Clear) Urine pH (5.0-8.0) pH Units Ur Specific [place] (1.010-1.025) Urine Protein (Neg-Trace) mg/dL Urine Glucose (UA) (Normal) mg/dL Urine Ketones (Negative) mg/dL Urine Blood (Negative) Urine Nitrite (Negative) Urine Bilirubin (Negative) Urine Urobilinogen (Normal) mg/dL Ur Leukocyte Esterase (Negative) Ur Culture Indicated? (NO) Vancomycin Trough 9.2 L (10-20) mcg/mL 05/30/16 05/30/16 05/31/16 Range/Units 04:10 22:43 04:00 WBC (4.3-11.1) K/mcL RBC (4.19-5.50) M/mcL Hgb (12.9-16.9) g/dL Hct (37.5-50.1) % MCV (83.0-100.0) fL MCH (28.0-33.3) pg MCHC (31.6-35.5) g/dL RDW (11.5-14.5) % Plt Count (140-400) K/mcL MPV (9.4-12.4) fL Immature Gran % (0-4) % Seg Neutrophils % % Lymphocytes % % Monocytes % % Eosinophils % % Basophils % % Neutrophils # (1.6-8.9) K/mcL Lymphocytes # (0.6-4.6) K/mcL Monocytes # (0.0-1.3) K/mcL Eosinophils # (0.0-0.6) K/mcL Basophils # (0.0-0.2) K/mcL Platelet Estimate (Normal) ABG pH 7.47 H (7.32-7.45) pH Units ABG pCO2 50 H (35-45) mmHg ABG pO2 99 (85-104) mmHg ABG HCO3 36.4 H (21-27) mEQ/L ABG Total CO2 37.9 H (20-26) mEq/L ABG O2 Saturation 98 (95-98) % ABG Base Excess 10.9 H (-2.0 to 3.0) mEq/L Blood Gas Modality BIPAP Inspired O2 30 % Sodium 139 (136-145) mEq/L Potassium 3.9 (3.5-4.5) mEq/L Chloride 101 (98-109) mEq/L Carbon Dioxide 30 H (19-29) mEq/L BUN 15 (8-26) mg/dL Creatinine 0.58 L (0.72-1.25) mg/dL Est GFR ( Amer) > 60 (> 60) Est GFR (Non-Af Amer) > 60 (> 60) BUN/Creatinine Ratio 26 (6-26) Glucose 121 H (70-99) mg/dL POC Glucose (58-89) Calculated Osmolality 290 (280-300) Lactic Acid (0.5-2.2) mmol/L Calcium 10.1 (8.6-10.8) mg/dL Troponin I (0-0.03) ng/mL Urine Color (Yellow) Urine Clarity (Clear) Urine pH (5.0-8.0) pH Units Ur Specific [place] (1.010-1.025) Urine Protein (Neg-Trace) mg/dL Urine Glucose (UA) (Normal) mg/dL Urine Ketones (Negative) mg/dL Urine Blood (Negative) Urine Nitrite (Negative) Urine Bilirubin (Negative) Urine Urobilinogen (Normal) mg/dL Ur Leukocyte Esterase (Negative) Ur Culture Indicated? (NO) Vancomycin Trough 9.7 L (10-20) mcg/mL - Radiology Data Radiology results reviewed: Yes I reviewed the patient's radiology results. Chest x-rays done yesterday show no new changes. Patient has chronic infiltrate /lung mass and fibrotic changes
[2016-05-31] MEDS: *HR* OxyCODONE Immed Rel 15 MG TABLET PO PRN (22:11)
[2016-06-01] MEDS: *HR* Morphine 2 MG/ML SYRINGE IV PRN ×5 (03:03→21:43)
[2016-06-01] MEDS: Ipratropium/Albuterol Neb 3 ML IH SCH ×4 (03:31→21:05)
[2016-06-01] MEDS: *HR* OxyCODONE Immed Rel 15 MG TABLET PO PRN ×3 (04:55→19:35)
[2016-06-01 05:12] LABS: Basophils % 0.1 %
[2016-06-01 05:14] LABS: Eosinophils % 0.4 %; Hematocrit 38.4 % (37.5-50.1); Hemoglobin 12.2 g/dL (12.9-16.9); Immature Granulocytes % 0.4 % (0-4); Lymphocytes # 0.6 K/mcL (0.6-4.6); Lymphocytes % 7.5 %; Mean Corpuscular HGB Conc 31.8 g/dL (31.6-35.5); Mean Corpuscular Volume 88.3 fL (83.0-100.0); Monocytes # 0.9 K/mcL (0.0-1.3); Monocytes % 10.1 %; Neutrophils # 6.9 K/mcL (1.6-8.9); Red Blood Count 4.35 M/mcL (4.19-5.50); Segmented Neutrophils % 81.5 %
[2016-06-01 05:22] LABS: Platelet Count 99 K/mcL (140-400)
[2016-06-01 05:34] LABS: BUN/Creatinine Ratio 30 (6-26); Blood Urea Nitrogen 18 mg/dL (8-26); Calcium 9.6 mg/dL (8.6-10.8); Carbon Dioxide 30 mEq/L (19-29); Chloride 91 mEq/L (98-109); Glucose 88 mg/dL (70-99); Osmolality,Calculated 281 (280-300); Potassium 2.7 mEq/L (3.5-4.5); Sodium 135 mEq/L (136-145); eGFR For African Americans > 60 (> 60); eGFR For Non-African Americans > 60 (> 60)
--- NOTE | 2016-06-01 08:41 | Pulmonology Progress Note ---
Date of Encounter: 06/01/16 Time of Encounter: 08:39 Assessment and Plan (1) Acute and chronic respiratory failure with hypoxia Current Visit: Yes Status: Acute Acute and chronic respiratory failure with hypoxia is due to COPD. COPD is rather advanced in this individual based upon his history, physical examination findings. The patient is severely debilitated due to advanced COPD suffering from severe immobility, weight loss, depression and peripheral muscle atrophy. I agree with the current therapies provided by the primary service. More than likely, the patient will require hospitalization for at least several days. Conceivably, he will require a usp facility at the time of discharge but realistically may not be able perhaps to return to the home setting. Perhaps the patient would benefit from a formal dilation by behavioral medicine for for depression. Call if questions. [facility] [phone] Code(s): J96.21 - Acute and chronic respiratory failure with hypoxia SNOMED Code(s): 287251672, 599629233 Subjective Principal diagnosis: Acute and chronic respiratory failure with hypoxia Interval history: Patient reports perhaps a mild improvement of his respiratory status. He notes continued cough and chest congestion and wheezing but denies purulent sputum production or hemoptysis. Overnight, he was intolerant of BiPAP use. He notes chronic back pain and inability to achieve a state of comfort while in bed or in the chair. Objective PUL Vital signs: Last Vital Signs Temp 98.6 F 06/01/16 07:31 Pulse 92 06/01/16 07:31 Resp 18 06/01/16 07:31 BP 140/110 06/01/16 07:31 Pulse Ox 93 L 06/01/16 07:31 General appearance: no acute distress, other (Debilitated) Eyes: nonicteric ENT: oropharynx moist Effort: mildly labored Auscultation: bilateral: diminished breath sounds, rhonchi, other ( Kyphoscoliosis) Cardiovascular: regular rate and rhythm Gastrointestinal: normoactive bowel sounds, non-distended Integumentary: normal Extremities: no cyanosis normal mental status, non-focal exam depressed Results - Laboratory Findings CBC and BMP: 06/01/16 04:33 06/01/16 04:33 ABG ABG pH 7.47 pH Units (7.32-7.45) H 05/30/16 22:43 ABG pCO2 50 mmHg (35-45) H 05/30/16 22:43 ABG pO2 99 mmHg (85-104) 05/30/16 22:43 ABG O2 Saturation 98 % (95-98) 05/30/16 22:43 PT/INR, D-dimer PT 11.9 Seconds (9.4-12.1) 05/28/16 05:52 Abnormal lab findings: Abnormal lab results Hgb 12.2 g/dL (12.9-16.9) L D 06/01/16 04:33 Plt Count 99 K/mcL (140-400) L 06/01/16 04:33 Platelet Estimate Decreased (Normal) L 05/29/16 04:25 Immature Plt Fraction 10.0 % (1.1-6.1) H 06/01/16 04:33 ABG pH 7.47 pH Units (7.32-7.45) H 05/30/16 22:43 ABG pCO2 50 mmHg (35-45) H 05/30/16 22:43 ABG HCO3 36.4 mEQ/L (21-27) H 05/30/16 22:43 ABG Total CO2 37.9 mEq/L (20-26) H 05/30/16 22:43 ABG Base Excess 10.9 mEq/L (-2.0 to 3.0) H 05/30/16 22:43 Sodium 135 mEq/L (136-145) L 06/01/16 04:33 Potassium 2.7 mEq/L (3.5-4.5) L D 06/01/16 04:33 Chloride 91 mEq/L (98-109) L 06/01/16 04:33 Carbon Dioxide 30 mEq/L (19-29) H 06/01/16 04:33 Creatinine 0.60 mg/dL (0.72-1.25) L 06/01/16 04:33 BUN/Creatinine Ratio 30 (6-26) H 06/01/16 04:33 POC Glucose 126 (58-89) H 05/29/16 16:30 Phosphorus 2.0 mg/dL (2.3-4.7) L 05/28/16 05:52 Magnesium 1.5 mg/dL (1.6-2.6) L 05/28/16 05:52 Total Bilirubin 1.5 mg/dL (0.2-1.2) H 05/28/16 05:52 Direct Bilirubin 0.6 mg/dL (0.0-0.5) H 05/28/16 05:52 Globulin 3.6 g/dL (2.4-3.5) H 05/28/16 05:52 Vancomycin Trough 9.7 mcg/mL (10-20) L 05/31/16 04:00 - Clinical Findings Intake & Output: Intake & Output 05/31/16 06/01/16 06/01/16 23:59 07:59 15:59 Intake Total 600 / 600 650 / 650 Output Total 500 / 500 575 / 575 Balance 100 / 100 75 / 75 Weight 57.7 kg Consult Discharge Plan - Plan Instructions: Chronic Obstructive Pulmonary Disease (DC) Additional Instructions: With Pulmonology in 1-2 weeks With Oncology in 1-2 weeks Referrals: Mike Leger Jr, MD [Primary Care Provider] - 06/08/16 9:30 am Prescriptions: Levofloxacin [Levaquin] 500 mg PO DAILY #5 tablet PredniSONE 10 mg PO DAILY 12 Days
[2016-06-01] MEDS: *HR* Enoxaparin 40 MG/0.4 ML SYRINGE SQ SCH (09:15)
[2016-06-01] MEDS: predniSONE 20 MG TABLET PO SCH (09:17)
[2016-06-01] MEDS: Furosemide 40 MG TABLET PO SCH (09:18)
[2016-06-01] MEDS: Gabapentin 400 MG CAPSULE PO SCH ×2 (09:18→19:36)
[2016-06-01] MEDS: Levofloxacin 750 MG/150 ML 750 MG/150 ML BAG IVPB SCH (09:18)
[2016-06-01] MEDS: Lactobacillus 1 EACH CAP.SPRINK PO SCH (09:18)
[2016-06-01] MEDS: Pantoprazole 40 MG VIAL IV SCH (09:19)
[2016-06-01] MEDS: (Dextroamphetamine/Amphetamine [Adderall 20 Mg Tablet PO SCH (09:19)
--- NOTE | 2016-06-01 12:07 | Internal Med Progress Note ---
Date of Encounter: 06/01/16 Time of Encounter: 12:05 - Assessment and plan (1) Acute and chronic respiratory failure with hypoxia Current Visit: Yes Status: Acute Assessment and plan: Due to acute exacerbation of COPD. Reviewed pulmonology consultation. Patient appears to be having bad COPD underlying needing BiPAP use. Will also recommend patient be discharged to senior care facility if he continues to need BiPAP for supportive care. day worker consulted about this. For now continue O2 supplementation and use BiPAP as needed. Continue bronchodilator nebs. Continue to taper steroids. Moderate risk for complications. (2) COPD (chronic obstructive pulmonary disease) Current Visit: Yes Status: Acute Assessment and plan: Management as above Qualifiers: COPD type: COPD with acute exacerbation Qualified Code(s): J44.1 - Chronic obstructive pulmonary disease with (acute) exacerbation (3) Sepsis Current Visit: Yes Status: Ruled-out Qualifiers: Sepsis type: sepsis due to unspecified organism Qualified Code(s): A41.9 - Sepsis, unspecified organism (4) Neuropathy Current Visit: No Status: Chronic Assessment and plan: Continue gabapentin (5) Non-small cell carcinoma of left lung, stage 4 Current Visit: No Status: Chronic Assessment and plan: Follow-up outpatient with oncology (6) Weakness Current Visit: Yes Status: Chronic Assessment and plan: Evaluated by physical therapy. Recommend home health. However patient needing BiPAP and has not qualified for home BiPAP use. Per recommendations from pulmonology patient would benefit from discharge to senior care facility for BiPAP use. (7) Essential hypertension Current Visit: Yes Status: Chronic Assessment and plan: Patient has been having elevated blood pressure during his stay. Most likely due to pain. This is improving as his pain is better controlled. We will continue to monitor blood pressure. (8) DVT prophylaxis Current Visit: Yes Status: Acute Assessment and plan: With Lovenox - Subjective Interval history: Patient is back on nasal cannula as he did not tolerate BiPAP. Becoming anxious intermittently. Denies any chest pain. No nausea or vomiting. Continues to have wheezing. - Constitutional Vitals: Temp Pulse Resp BP Pulse Ox 98.4 F 115 20 111/83 94 L 06/01/16 11:54 06/01/16 11:54 06/01/16 11:54 06/01/16 11:54 06/01/16 11:54 General appearance: Present: cooperative, mild distress, A&O X 3, pleasant, underweight, answers questions appropriately - Respiratory Respiratory exam: Present: decreased breath sounds (Bilaterally), prolonged expiratory phase, wheezes. Absent: accessory muscle use, rales, rhonchi - Cardiovascular Cardiovascular exam: Present: RRR, +S1, +S2. Absent: diastolic murmur, gallop, rubs, systolic murmur - GI/Abdominal GI/Abdominal exam: Present: normal bowel sounds, soft, no peritoneal signs. Absent: distended, tenderness - Extremities Exam Extremities exam: Present: warm, radial pulses palpable and symetrical. Absent : calf tenderness, cyanotic, pedal edema - Neurological Exam Neurological exam: Present: alert, oriented X3, no focal deficits. Absent: facial droop, speech deficit - Psychiatric Psychiatric exam: Present: normal affect, normal mood - Skin Skin exam: Present: dry, intact Internal Medicine: Result - Labs CBC & Chem 7: 06/01/16 04:33 06/01/16 04:33 Labs: Short CBC 06/01/16 Range/Units 04:33 WBC 8.4 (4.3-11.1) K/mcL Hgb 12.2 L D (12.9-16.9) g/dL Hct 38.4 (37.5-50.1) % Plt Count 99 L (140-400) K/mcL Neutrophils # 6.9 (1.6-8.9) K/mcL BMP 06/01/16 04:33 Sodium 135 L Potassium 2.7 L D Chloride 91 L Carbon Dioxide 30 H BUN 18 Creatinine 0.60 L Glucose 88 Calcium 9.6 - ABG Interpretation ABG results: ABG ABG pH 7.47 pH Units (7.32-7.45) H 05/30/16 22:43 ABG pCO2 50 mmHg (35-45) H 05/30/16 22:43 ABG pO2 99 mmHg (85-104) 05/30/16 22:43 ABG O2 Saturation 98 % (95-98) 05/30/16 22:43 PT/INR, D-dimer PT 11.9 Seconds (9.4-12.1) 05/28/16 05:52 Consult Discharge Plan - Plan Instructions: Chronic Obstructive Pulmonary Disease (DC) Additional Instructions: With Pulmonology in 1-2 weeks With Oncology in 1-2 weeks Referrals: Mike Leger Jr, MD [Primary Care Provider] - 06/08/16 9:30 am Prescriptions: Levofloxacin [Levaquin] 500 mg PO DAILY #5 tablet PredniSONE 10 mg PO DAILY 12 Days - Attending Attestation This document has been at least partially created by [employer] recognition technology by Dr. Cespedes. Errors in grammar, wording or other phrases may exist. If errors are found after the documentation is signed, they will be addressed individually in the addendum section of this document when appropriate.
--- NOTE | 2016-06-01 12:16 | Physician Discharge Referral ---
ExtendedCare Referral Info Transfer To: SNF Institutional Level of Care: Skilled - Diagnosis (1) Acute and chronic respiratory failure with hypoxia Priority: Primary Status: Acute (2) COPD (chronic obstructive pulmonary disease) Priority: Secondary Status: Acute (3) Leukopenia Priority: Secondary Status: Resolved (4) Sepsis Priority: Secondary Status: Ruled-out (5) Neuropathy Priority: Secondary Status: Chronic (6) Non-small cell carcinoma of left lung, stage 4 Priority: Secondary Status: Chronic (7) Weakness Priority: Secondary Status: Chronic (8) Hypokalemia Priority: Secondary Status: Resolved Prognosis: Poor Aware of Diagnosis: Patient, Family Aware of Prognosis: Patient, Family - Transfer Medications Prescriptions: Levofloxacin [Levaquin] 500 mg PO DAILY #5 tablet PredniSONE 10 mg PO DAILY 12 Days Home Medications: Atorvastatin [Lipitor] 10 mg PO DAILY 12/28/14 [History] Budesonide/Formoterol 160/4.5 [Symbicort] 1 puff IH BIDR 12/28/14 [History] Duloxetine HCl [Cymbalta] 60 mg PO BID 12/28/14 [History] Furosemide [Lasix] 40 mg PO DAILY 12/28/14 [History] Gabapentin [Neurontin] 800 mg PO BID 12/28/14 [History] Ipratropium/Albuterol Sulfate [Combivent Respimat Inhal [place]] 2 puff IH Q4-6H PRN 12/28/14 [History] Lidocaine Viscous Oral Soln 30 ml MM ONCE PRN #1 solution 12/28/14 [Rx] Morphine Sulfate/D5w [Morphine-D5w 100 mg/100 ml] 0 mg INTRACATH AD PRN [History] Nortriptyline [Pamelor] 10 mg PO HS 12/28/14 [History] Sennosides/Docusate Sodium [Senna Plus] 2 each PO DAILY PRN 12/28/14 [History] Gabapentin [Neurontin] 1,600 mg PO HS 07/05/15 [History] OxyCODONE Immed Rel [Roxicodone 15 MG] 15 mg PO Q6HR PRN #40 tablet 07/09/15 [Rx ] Levothyroxine [Synthroid] 175 mcg PO DAILY #90 tablet 08/15/15 [Rx] Dextroamphetamine/Amphetamine [Adderall 20 mg Tablet] 20 mg PO DAILY 08/21/15 [ History] Cholecalciferol (Vitamin D3) [Vitamin D3] 1,000 unit PO DAILY 12/27/15 [History] Lactobacillus Combination No.8 [Adult Probiotic] 1 mg PO DAILY 12/27/15 [History ] Benztropine [Cogentin] 1 mg PO HS PRN 01/14/16 [History] Oxygen 3 - 3.5 l NS CONT 01/14/16 [History] Potassium Chloride 20 meq PO DAILY #90 tab.er.prt 01/17/16 [Rx] Pantoprazole Sodium [Protonix] 40 mg PO DAILY #90 granpkt. 03/26/16 [Rx] PredniSONE 5 mg PO DAILY #150 tablet 03/26/16 [Rx] Ammonium Lactate [Telma-Hydrolac] 1 appl TP BID 05/28/16 [History] Ipratropium/Albuterol Neb [Duoneb] 3 ml IH QID PRN 05/28/16 [History] Levofloxacin [Levaquin] 500 mg PO DAILY #5 tablet 05/30/16 [Rx] PredniSONE 10 mg PO DAILY 12 Days 05/30/16 [Rx] Allergies/Adverse Reactions: Allergies No Known Allergies Allergy (Verified 03/26/16 15:48) - Respiratory Orders Oxygen / L per min (4), Other (BIPAP PRN at 14/6 mm Hg, 8/min) Smoking Cessation: Smoking cessation has been advised. For more information, call the [place] Tobacco Quit Line at 9-103-VYZW-NOW. - Advance Directives Code Status: Full Code - Rehabiliation Orders Rehab Potential: Fair Rehab Orders: Evaluation for Physical Therapy, Evaluation for Occupational Therapy - Diet Orders Cardiac CERTIFICATION: I certify that the transfer of the above named patient to an Extended Care Facility is necessary for the continuing treatment of the diagnosis listed. The above information is true and accurate reflection of patient's current condition. Confidential - Redisclosure prohibited without a patient's written consent.
--- NOTE | 2016-06-01 17:29 | Electrocardiograph Report ---
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
[2016-06-02] MEDS: *HR* Morphine 2 MG/ML SYRINGE IV PRN ×5 (01:31→21:28)
[2016-06-02] MEDS: *HR* OxyCODONE Immed Rel 15 MG TABLET PO PRN ×4 (04:25→23:21)
[2016-06-02] MEDS: Ipratropium/Albuterol Neb 3 ML IH SCH ×6 (04:39→22:57)
[2016-06-02] MEDS: levoFLOXacin 750 MG TABLET PO SCH (08:03)
[2016-06-02] MEDS: Lactobacillus 1 EACH CAP.SPRINK PO SCH (08:03)
[2016-06-02] MEDS: predniSONE 20 MG TABLET PO SCH (08:03)
[2016-06-02] MEDS: Furosemide 40 MG TABLET PO SCH (08:03)
[2016-06-02] MEDS: Gabapentin 400 MG CAPSULE PO SCH ×2 (08:03→21:22)
[2016-06-02] MEDS: *HR* Enoxaparin 40 MG/0.4 ML SYRINGE SQ SCH (08:05)
[2016-06-02] MEDS: (Dextroamphetamine/Amphetamine [Adderall 20 Mg Tablet PO SCH (08:14)
[2016-06-02] MEDS ORDERED: *HR* LORazepam 1 MG TABLET PO PRN (09:07)
[2016-06-02 09:25] LABS: Immature Granulocytes % 0.8 % (0-4); Mean Corpuscular Volume 88.5 fL (83.0-100.0)
[2016-06-02 09:27] LABS: Basophils % 0.2 %; Eosinophils # 0.1 K/mcL (0.0-0.6); Eosinophils % 1.7 %; Hematocrit 36.8 % (37.5-50.1); Hemoglobin 11.9 g/dL (12.9-16.9); Immature Platelets 9.9 % (1.1-6.1); Lymphocytes # 0.5 K/mcL (0.6-4.6); Lymphocytes % 8.3 %; Mean Corpuscular HGB Conc 32.3 g/dL (31.6-35.5); Mean Corpuscular Hemoglobin 28.6 pg (28.0-33.3); Mean Platelet Volume 11.7 fL (9.4-12.4); Monocytes # 0.8 K/mcL (0.0-1.3); Monocytes % 12.7 %; Red Blood Count 4.16 M/mcL (4.19-5.50); Red Cell Distribution Width 13.7 % (11.5-14.5); Segmented Neutrophils % 76.3 %
[2016-06-02 09:34] LABS: Platelet Count 98 K/mcL (140-400)
[2016-06-02 09:36] LABS: BUN/Creatinine Ratio 30 (6-26); Blood Urea Nitrogen 19 mg/dL (8-26); Calcium 9.6 mg/dL (8.6-10.8); Carbon Dioxide 31 mEq/L (19-29); Chloride 92 mEq/L (98-109); Glucose 97 mg/dL (70-99); Osmolality,Calculated 282 (280-300); Potassium 3.3 mEq/L (3.5-4.5); Sodium 135 mEq/L (136-145); eGFR For African Americans > 60 (> 60); eGFR For Non-African Americans > 60 (> 60)
[2016-06-02] MEDS: Acetylcysteine 10% 4 ML INHSOL IH SCH ×5 (10:41→22:58)
[2016-06-02] MEDS: MethylPREDNISolone 40 MG/ML VIAL IVP SCH (17:03)
--- NOTE | 2016-06-02 18:17 | Internal Med Progress Note ---
Date of Encounter: 06/02/16 Time of Encounter: 18:13 - Assessment and plan (1) Acute and chronic respiratory failure with hypoxia Current Visit: Yes Status: Acute (2) COPD with acute exacerbation Current Visit: Yes Status: Acute (3) Pneumonia Current Visit: Yes Status: Acute Qualifiers: Pneumonia type: due to unspecified organism Laterality: unspecified laterality Lung location: unspecified part of lung Qualified Code(s): J18.9 - Pneumonia, unspecified organism (4) Sepsis Current Visit: Yes Status: Ruled-out Qualifiers: Sepsis type: sepsis due to unspecified organism Qualified Code(s): A41.9 - Sepsis, unspecified organism (5) Hypothyroidism Current Visit: No Status: Chronic Qualifiers: Hypothyroidism type: unspecified Qualified Code(s): E03.9 - Hypothyroidism , unspecified (6) Non-small cell carcinoma of left lung, stage 4 Current Visit: No Status: Chronic (7) Hypokalemia Current Visit: No Status: Resolved Assessment and plan: Still significantly reduced breathe sounds bilaterally with rhonchi and wheezing. Increase steroids to IV, increase Duonebs to every 4 hours and add Mucomyst and Mucinex. Ativan PRN for insomnia. Replace electrolytes. - Subjective Interval history: Patient evaluated, seen lying in bed. Pt denies Chest or abdominal pain, fever or chills. - Constitutional Vitals: Temp Pulse Resp BP Pulse Ox 98.2 F 105 18 104/76 99 06/02/16 16:49 06/02/16 16:49 06/02/16 17:05 06/02/16 16:49 06/02/16 17:05 General appearance: Present: cooperative, mild distress, A&O X 3, pleasant, underweight, answers questions appropriately - Head Head exam: Present: atraumatic, normocephalic - Eye Eye exam: Present: PERRL, conjuntiva pink, sclera anicteric Pupils: Present: PERRL - Neck Neck exam general surgery: Present: supple, trachea midline. Absent: lymphadenopathy - Respiratory Respiratory exam: Present: decreased breath sounds, rhonchi. Absent: accessory muscle use, rales, wheezes - Cardiovascular Cardiovascular exam: Present: RRR, +S1, +S2. Absent: diastolic murmur, gallop, rubs, systolic murmur - GI/Abdominal GI/Abdominal exam: Present: normal bowel sounds, soft, no peritoneal signs. Absent: distended, tenderness - Extremities Exam Extremities exam: Present: warm, radial pulses palpable and symetrical. Absent : calf tenderness, cyanotic, pedal edema - Neurological Exam Neurological exam: Present: CN II-XII intact, oriented X3, no focal deficits. Absent: pronater drift, facial droop, speech deficit - Skin Skin exam: Present: dry, intact Internal Medicine: Result - Labs CBC & Chem 7: 06/02/16 08:58 06/02/16 08:58 Labs: Short CBC 06/02/16 Range/Units 08:58 WBC 6.5 (4.3-11.1) K/mcL Hgb 11.9 L (12.9-16.9) g/dL Hct 36.8 L (37.5-50.1) % Plt Count 98 L (140-400) K/mcL Neutrophils # 5.0 (1.6-8.9) K/mcL BMP 06/02/16 08:58 Sodium 135 L Potassium 3.3 L Chloride 92 L Carbon Dioxide 31 H BUN 19 Creatinine 0.64 L Glucose 97 Calcium 9.6 - ABG Interpretation ABG results: ABG ABG pH 7.47 pH Units (7.32-7.45) H 05/30/16 22:43 ABG pCO2 50 mmHg (35-45) H 05/30/16 22:43 ABG pO2 99 mmHg (85-104) 05/30/16 22:43 ABG O2 Saturation 98 % (95-98) 05/30/16 22:43 PT/INR, D-dimer PT 11.9 Seconds (9.4-12.1) 05/28/16 05:52 Consult Discharge Plan - Plan Instructions: Chronic Obstructive Pulmonary Disease (DC) Additional Instructions: With Pulmonology in 1-2 weeks With Oncology in 1-2 weeks Referrals: Mike Leger Jr, MD [Primary Care Provider] - 06/08/16 9:30 am Prescriptions: Levofloxacin [Levaquin] 500 mg PO DAILY #5 tablet PredniSONE 10 mg PO DAILY 12 Days
[2016-06-03] MEDS: Ipratropium/Albuterol Neb 3 ML IH SCH ×4 (03:51→15:19)
[2016-06-03] MEDS: Acetylcysteine 10% 4 ML INHSOL IH SCH ×4 (03:51→15:19)
[2016-06-03 04:50] LABS: Basophils % 0.1 %; Eosinophils % 0.3 %; Hematocrit 34.7 % (37.5-50.1); Hemoglobin 11.1 g/dL (12.9-16.9); Immature Granulocytes % 1.3 % (0-4); Lymphocytes # 0.6 K/mcL (0.6-4.6); Mean Corpuscular Hemoglobin 28.7 pg (28.0-33.3); Mean Corpuscular Volume 89.7 fL (83.0-100.0); Mean Platelet Volume 11.7 fL (9.4-12.4); Monocytes # 0.8 K/mcL (0.0-1.3); Monocytes % 11.4 %; Neutrophils # 5.4 K/mcL (1.6-8.9); Platelet Count 108 K/mcL (140-400); Red Blood Count 3.87 M/mcL (4.19-5.50); Red Cell Distribution Width 13.8 % (11.5-14.5); Segmented Neutrophils % 78.9 %
[2016-06-03 05:07] LABS: BUN/Creatinine Ratio 36 (6-26); Blood Urea Nitrogen 25 mg/dL (8-26); Calcium 9.5 mg/dL (8.6-10.8); Carbon Dioxide 30 mEq/L (19-29); Chloride 94 mEq/L (98-109); Glucose 100 mg/dL (70-99); Osmolality,Calculated 280 (280-300); Sodium 133 mEq/L (136-145); eGFR For African Americans > 60 (> 60); eGFR For Non-African Americans > 60 (> 60)
[2016-06-03 05:08] LABS: Potassium 4.5 mEq/L (3.5-4.5)
[2016-06-03] MEDS: MethylPREDNISolone 40 MG/ML VIAL IVP SCH (06:34)
--- NOTE | 2016-06-03 09:13 | Internal Med Progress Note ---
Date of Encounter: 06/03/16 - Constitutional Vitals: Temp Pulse Resp BP Pulse Ox 98.4 F 98 16 118/89 98 06/03/16 06:57 06/03/16 06:57 06/03/16 07:50 06/03/16 06:57 06/03/16 07:50 General appearance: Present: cooperative, mild distress, A&O X 3, pleasant, underweight, answers questions appropriately Internal Medicine: Result - Labs CBC & Chem 7: 06/03/16 04:23 06/03/16 04:23 Labs: Short CBC 06/02/16 06/03/16 Range/Units 08:58 04:23 WBC 6.5 6.8 (4.3-11.1) K/mcL Hgb 11.9 L 11.1 L (12.9-16.9) g/dL Hct 36.8 L 34.7 L (37.5-50.1) % Plt Count 98 L 108 L (140-400) K/mcL Neutrophils # 5.0 5.4 (1.6-8.9) K/mcL BMP 06/02/16 06/03/16 08:58 04:23 Sodium 135 L 133 L Potassium 3.3 L 4.5 D Chloride 92 L 94 L Carbon Dioxide 31 H 30 H BUN 19 25 Creatinine 0.64 L 0.69 L Glucose 97 100 H Calcium 9.6 9.5 - ABG Interpretation ABG results: ABG ABG pH 7.47 pH Units (7.32-7.45) H 05/30/16 22:43 ABG pCO2 50 mmHg (35-45) H 05/30/16 22:43 ABG pO2 99 mmHg (85-104) 05/30/16 22:43 ABG O2 Saturation 98 % (95-98) 05/30/16 22:43 PT/INR, D-dimer PT 11.9 Seconds (9.4-12.1) 05/28/16 05:52 Consult Discharge Plan - Plan Instructions: Chronic Obstructive Pulmonary Disease (DC) Additional Instructions: With Pulmonology in 1-2 weeks With Oncology in 1-2 weeks Referrals: Mike Leger Jr, MD [Primary Care Provider] - 06/08/16 9:30 am Prescriptions: Levofloxacin [Levaquin] 500 mg PO DAILY #5 tablet PredniSONE 10 mg PO DAILY 12 Days
[2016-06-03] MEDS: levoFLOXacin 750 MG TABLET PO SCH (09:43)
[2016-06-03] MEDS: *HR* OxyCODONE Immed Rel 15 MG TABLET PO PRN (09:44)
[2016-06-03] MEDS: Furosemide 40 MG TABLET PO SCH (09:44)
[2016-06-03] MEDS: Lactobacillus 1 EACH CAP.SPRINK PO SCH (09:44)
[2016-06-03] MEDS: Gabapentin 400 MG CAPSULE PO SCH (09:46)
[2016-06-03] MEDS: *HR* Enoxaparin 40 MG/0.4 ML SYRINGE SQ SCH (09:47)
[2016-06-03] MEDS: (Dextroamphetamine/Amphetamine [Adderall 20 Mg Tablet PO SCH (09:53)
[2016-06-03 11:02] LABS: ABG Base Excess 10.2 mEq/L (-2.0 to 3.0); ABG HCO3 35.6 mEQ/L (21-27); ABG Oxygen Saturation 97 % (95-98); ABG PCO2 50 mmHg (35-45); ABG PH 7.46 pH Units (7.32-7.45); ABG PO2 81 mmHg (85-104); ABG TCO2 37.1 mEq/L (20-26)
[2016-06-03 11:03] LABS: Blood Gas FiO2 28 %; Blood Gas Liter Flow 2 L/MIN
--- NOTE | 2016-06-03 11:05 | Discharge Summary ---
<VivienneShaquille Heriberto - Last Filed: 06/03/16 15:24> Date of Encounter: 06/03/16 Time of Encounter: 10:10 - Discharge Diagnosis (1) COPD with acute exacerbation Priority: Primary Status: Acute (2) Non-small cell carcinoma of left lung, stage 4 Priority: Primary Status: Chronic (3) Weakness Priority: Primary Status: Chronic - Discharge Medications Prescriptions: Levofloxacin [Levaquin] 500 mg PO DAILY #5 tablet Levofloxacin 750 mg PO DAILY #5 tablet PredniSONE 10 mg PO DAILY 12 Days Home Medications: Atorvastatin [Lipitor] 10 mg PO DAILY 12/28/14 [History] Budesonide/Formoterol 160/4.5 [Symbicort] 1 puff IH BIDR 12/28/14 [History] Duloxetine HCl [Cymbalta] 60 mg PO BID 12/28/14 [History] Furosemide [Lasix] 40 mg PO DAILY 12/28/14 [History] Gabapentin [Neurontin] 800 mg PO BID 12/28/14 [History] Ipratropium/Albuterol Sulfate [Combivent Respimat Inhal [place]] 2 puff IH Q4-6H PRN 12/28/14 [History] Lidocaine Viscous Oral Soln 30 ml MM ONCE PRN #1 solution 12/28/14 [Rx] Morphine Sulfate/D5w [Morphine-D5w 100 mg/100 ml] 0 mg INTRACATH AD PRN [History] Nortriptyline [Pamelor] 10 mg PO HS 12/28/14 [History] Sennosides/Docusate Sodium [Senna Plus] 2 each PO DAILY PRN 12/28/14 [History] Gabapentin [Neurontin] 1,600 mg PO HS 07/05/15 [History] OxyCODONE Immed Rel [Roxicodone 15 MG] 15 mg PO Q6HR PRN #40 tablet 07/09/15 [Rx ] Levothyroxine [Synthroid] 175 mcg PO DAILY #90 tablet 08/15/15 [Rx] Dextroamphetamine/Amphetamine [Adderall 20 mg Tablet] 20 mg PO DAILY 08/21/15 [ History] Cholecalciferol (Vitamin D3) [Vitamin D3] 1,000 unit PO DAILY 12/27/15 [History] Lactobacillus Combination No.8 [Adult Probiotic] 1 mg PO DAILY 12/27/15 [History ] Benztropine [Cogentin] 1 mg PO HS PRN 01/14/16 [History] Oxygen 3 - 3.5 l NS CONT 01/14/16 [History] Potassium Chloride 20 meq PO DAILY #90 tab.er.prt 01/17/16 [Rx] Pantoprazole Sodium [Protonix] 40 mg PO DAILY #90 granpkt. 03/26/16 [Rx] Ammonium Lactate [Telma-Hydrolac] 1 appl TP BID 05/28/16 [History] Ipratropium/Albuterol Neb [Duoneb] 3 ml IH QID PRN 05/28/16 [History] Levofloxacin [Levaquin] 500 mg PO DAILY #5 tablet 05/30/16 [Rx] PredniSONE 10 mg PO DAILY 12 Days 05/30/16 [Rx] Ipratropium/Albuterol Neb [Duoneb] 3 ml IH [id number] #0 inhsol 06/03/16 [Rx] Levofloxacin 750 mg PO DAILY #5 tablet 06/03/16 [Rx] Allergies/Adverse Reactions: Allergies No Known Allergies Allergy (Verified 03/26/16 15:48) Date of admission: 05/28/16 07:53 Primary care physician: Mike Leger Jr, MD Consults: 05/28/16 10:00 Consult to Nutrition [CONS] Routine Comment: Consulting Provider: NUTRITION Reason for Dietary Consult: Supplemental Nutrition Consult to Gi Technician [CONS] Routine Reason for SW Consult: possible hh has aaliyah home o2 05/28/16 14:39 Consult to Speech Therapy [CONS] Routine Comment: Evaluate, develop and implement POC Reason for Consult: aspiration Call Completed: No 05/29/16 10:45 Consult to Occupational Therapy [CONS] Routine Comment: Evaluate, develop and implement POC Consult to Physical Therapy [CONS] Routine Comment: Evaluate, develop and implement POC 05/31/16 09:51 Consult to Pulmonology [CONS] Routine Consulting Provider: Pulm Crit Care & Sleep [place] Reason for Consult: Acute on chronic resp failure Time Notified: 09:52 Call Completed: Yes Discharging clinician: Shaquille Palafox Anticipated date of discharge: 06/03/16 - Patient Status Disposition: Home Health Service Condition: Good Functional capacity at discharge: uses cane/walker Overall status at discharge: patient is back to baseline - Discharge Instructions Instructions: Chronic Obstructive Pulmonary Disease (DC) Follow Up With: Mike Leger Jr, MD [Primary Care Provider] - 06/08/16 9:30 am Additional Instructions: With Pulmonology in 1-2 weeks With Oncology in 1-2 weeks - Diet and Activity Activity: increase activity as tolerated Diet: advance to your usual diet Interval History: -Patient is up in a chair, alert and oriented 3. Family members are present in the room. Patient has no complaints or concerns. Denies shortness of breath , chest pain, GI complaints, headache. Feels like he is back to baseline. Discussed overall care and future treatment plans for the patient. Patient family members agreed and wish to have the patient discharged on home health. Hospital course: Mr. Soria is a 60 year old male history of lung cancer, COPD, chronic back pain with the morphine pain pump, who presented to the ER with signs of symptoms of sepsis and shortness of breath. He was diagnosed with acute on chronic respiratory failure with hypoxia and was treated with oxygen supplementation. He initially required BiPAP. He has been treated with bronchodilators nebs, intravenous steroids, IV antibiotics. Chest x-ray done initially shows chronic infiltrative changes but the patient's presentation he was started on broad- spectrum antibiotics. His blood cultures have been negative. Initially patient was supposed to be discharged home with home health. However he has continued to require intermittent use of BiPAP. Pulmonology was consulted. Recommend continuing and management with bronchodilators and intermittent BiPAP use and a short course of levofloxacin. The patient continued to require intermittent BiPAP use, they recommended the patient be discharged to longterm facility for BiPAP use and pulmonary rehabilitation. On 06/03/2016 patient was seen and appear to be in good spirits. He is up sitting in chair on nasal cannula with oxygen saturation above 95%. Social work , occupational therapy, physical therapy evaluate the patient. Per their recommendations, they and I feel patient is able to return home on home health. He wishes to be discharged today as well. - Time Spent with Patient Total time spent providing and/or coordinating discharge services: Greater than 30 minutes - Constitutional Vitals: Temp Pulse Resp BP Pulse Ox 98.4 F 98 16 118/89 98 06/03/16 06:57 06/03/16 06:57 06/03/16 07:50 06/03/16 06:57 06/03/16 07:50 General appearance: Present: cooperative, mild distress, A&O X 3, pleasant, underweight, answers questions appropriately - Respiratory Respiratory exam: Present: wheezes. Absent: accessory muscle use, rales, rhonchi - Cardiovascular Cardiovascular exam: Present: RRR, +S1, +S2. Absent: diastolic murmur, gallop, rubs, systolic murmur - GI/Abdominal GI/Abdominal exam: Present: soft, no peritoneal signs. Absent: distended, tenderness - Neurological Exam Neurological exam: Present: alert, oriented X3. Absent: altered - Psychiatric Psychiatric exam: Present: normal affect, normal mood <Shukri Gonzales - Last Filed: 06/03/16 16:25> Date of Encounter: 06/03/16 - Discharge Diagnosis (1) Acute and chronic respiratory failure with hypoxia Priority: Primary Status: Acute (2) COPD with acute exacerbation Status: Acute (3) Essential hypertension Priority: Secondary Status: Chronic (4) Non-small cell carcinoma of left lung, stage 4 Status: Chronic (5) Chronic pain Priority: Secondary Status: Chronic Qualifiers: Chronic pain type: due to neoplasm Qualified Code(s): G89.3 - Neoplasm related pain (acute) (chronic) (6) Physical deconditioning Priority: Secondary Status: Chronic (7) Malignant cachexia Priority: Secondary Status: Chronic Date of admission: 05/28/16 07:53 Primary care physician: Mike Leger Jr, MD Consults: 05/28/16 10:00 Consult to Nutrition [CONS] Routine Comment: Consulting Provider: NUTRITION Reason for Dietary Consult: Supplemental Nutrition Consult to Gi Technician [CONS] Routine Reason for SW Consult: possible hh has aaliyah home o2 05/28/16 14:39 Consult to Speech Therapy [CONS] Routine Comment: Evaluate, develop and implement POC Reason for Consult: aspiration Call Completed: No 05/29/16 10:45 Consult to Occupational Therapy [CONS] Routine Comment: Evaluate, develop and implement POC Consult to Physical Therapy [CONS] Routine Comment: Evaluate, develop and implement POC 05/31/16 09:51 Consult to Pulmonology [CONS] Routine Consulting Provider: Pulm Crit Care & Sleep [place] Reason for Consult: Acute on chronic resp failure Time Notified: 09:52 Call Completed: Yes Hospital course: Mr. Soria is a 60 year old male - Time Spent with Patient Total time spent providing and/or coordinating discharge services: 42min - Constitutional Vitals: Temp Pulse Resp BP Pulse Ox 98.4 F 100 16 90/60 96 06/03/16 15:12 06/03/16 15:12 06/03/16 15:12 06/03/16 15:12 06/03/16 15:12 - Attending Attestation I examined this patient and my medical decision-making was reviewed with the Resident Physician on 06/03/16. I agree with the documented findings, disposition and treatment plan as described except to the extent set forth below. Mr. Soria is feeling OK at this time. He wants to go home as he normally sleeps in a recliner which helps his pain. He feels at baseline right now. Exam Alert. Comfortable Heart reg Wheeze present Plan D/C today. Follow up with PCP
[2016-06-03 15:14] VITALS: BP 90/60
[2016-06-03] MEDS: *HR* Morphine 2 MG/ML SYRINGE IV PRN (16:01)
--- NOTE | 2016-06-03 16:59 | Physician Discharge Referral ---
Home Health/Hosp Referral Info Attending Provider: Shukri Gonzales DO Provider in Charge Post Discharge: PCP - Diagnosis (1) Acute and chronic respiratory failure with hypoxia Status: Acute (2) COPD with acute exacerbation Status: Acute (3) Essential hypertension Status: Chronic (4) Non-small cell carcinoma of left lung, stage 4 Status: Chronic (5) Chronic pain Status: Chronic (6) Physical deconditioning Status: Chronic (7) Malignant cachexia Status: Chronic - Respiratory Orders Other (Keep saturation greater than 92%) Smoking Cessation: Smoking cessation has been advised. For more information, call the [place] Tobacco Quit Line at 6-212-ZFTE-NOW. - Diet/Nutrition Diet/Nutrition Orders: Regular - Activity Activity Orders: Up ad sukumar - Services Needed Following services are medically necessary services: Nursing, Physical Therapy, Occupational Therapy - Transfer Medications Prescriptions: Levofloxacin [Levaquin] 500 mg PO DAILY #5 tablet Levofloxacin 750 mg PO DAILY #5 tablet PredniSONE 10 mg PO DAILY 12 Days Home Medications: Atorvastatin [Lipitor] 10 mg PO DAILY 12/28/14 [History] Budesonide/Formoterol 160/4.5 [Symbicort] 1 puff IH BIDR 12/28/14 [History] Duloxetine HCl [Cymbalta] 60 mg PO BID 12/28/14 [History] Furosemide [Lasix] 40 mg PO DAILY 12/28/14 [History] Gabapentin [Neurontin] 800 mg PO BID 12/28/14 [History] Ipratropium/Albuterol Sulfate [Combivent Respimat Inhal [place]] 2 puff IH Q4-6H PRN 12/28/14 [History] Lidocaine Viscous Oral Soln 30 ml MM ONCE PRN #1 solution 12/28/14 [Rx] Morphine Sulfate/D5w [Morphine-D5w 100 mg/100 ml] 0 mg INTRACATH AD PRN [History] Nortriptyline [Pamelor] 10 mg PO HS 12/28/14 [History] Sennosides/Docusate Sodium [Senna Plus] 2 each PO DAILY PRN 12/28/14 [History] Gabapentin [Neurontin] 1,600 mg PO HS 07/05/15 [History] OxyCODONE Immed Rel [Roxicodone 15 MG] 15 mg PO Q6HR PRN #40 tablet 07/09/15 [Rx ] Levothyroxine [Synthroid] 175 mcg PO DAILY #90 tablet 08/15/15 [Rx] Dextroamphetamine/Amphetamine [Adderall 20 mg Tablet] 20 mg PO DAILY 08/21/15 [ History] Cholecalciferol (Vitamin D3) [Vitamin D3] 1,000 unit PO DAILY 12/27/15 [History] Lactobacillus Combination No.8 [Adult Probiotic] 1 mg PO DAILY 12/27/15 [History ] Benztropine [Cogentin] 1 mg PO HS PRN 01/14/16 [History] Oxygen 3 - 3.5 l NS CONT 01/14/16 [History] Potassium Chloride 20 meq PO DAILY #90 tab.er.prt 01/17/16 [Rx] Pantoprazole Sodium [Protonix] 40 mg PO DAILY #90 granpkt. 03/26/16 [Rx] Ammonium Lactate [Telma-Hydrolac] 1 appl TP BID 05/28/16 [History] Ipratropium/Albuterol Neb [Duoneb] 3 ml IH QID PRN 05/28/16 [History] Levofloxacin [Levaquin] 500 mg PO DAILY #5 tablet 05/30/16 [Rx] PredniSONE 10 mg PO DAILY 12 Days 05/30/16 [Rx] Ipratropium/Albuterol Neb [Duoneb] 3 ml IH [id number] #0 inhsol 06/03/16 [Rx] Levofloxacin 750 mg PO DAILY #5 tablet 06/03/16 [Rx] Allergies/Adverse Reactions: Allergies No Known Allergies Allergy (Verified 03/26/16 15:48) Certification: Further, I certify that my clinical findings support that this patient is homebound (i.e. absences from home require considerable and taxing effort and are for medical reasons or sikh services or infrequently or short duration when for other reasons) because: Homebound Reason: Patient requires assistance of a person or device to safely leave home, Leaving home requires considerable and taxing effort due to condition Attestation: My signature below is to certify that this patient is under my care and that I, or nurse practitioner, or a physician's family assistant working with me, has a face-to -face encounter with this patient.
[2016-06-03] MEDS ORDERED: Aminoglycoside Consult 1 EACH MC ONE (17:50)
== END 2016-06-03 17:51 | disposition home health service (06) | DRG 189 ==
LOC: 2NNU 05:34 → EMEROO 05:34 → SUATTDRO 07:53 → 2NNU 09:01 → 2NENU 06-02 11:48
PROVIDERS: ADMIT Internal Medicine; ATTEND Internal Medicine

== ENCOUNTER 2017-08-22 01:38 | Inpatient (IN) ==
[2017-08-22] MEDS ORDERED: 0.9 % Sodium Chloride 1,000 ML IVC ONE (01:49)
[2017-08-22] MEDS ORDERED: Isovue-370 500 ML INFUS..BTL IV ONE ×2 (01:51→01:56)
[2017-08-22 01:55] LABS: Basophils % 0.5 %; Eosinophils # 0.2 K/mcL (0.0-0.6); Eosinophils % 3.6 %; Hematocrit 30.5 % (37.5-50.1); Hemoglobin 9.4 g/dL (12.9-16.9); Immature Granulocytes % 0.2 % (0-4); Lymphocytes # 1.7 K/mcL (0.6-4.6); Lymphocytes % 29.8 %; Mean Corpuscular HGB Conc 30.8 g/dL (31.6-35.5); Mean Corpuscular Hemoglobin 26.8 pg (28.0-33.3); Mean Corpuscular Volume 86.9 fL (83.0-100.0); Mean Platelet Volume 10.3 fL (9.4-12.4); Monocytes # 0.6 K/mcL (0.0-1.3); Monocytes % 9.7 %; Neutrophils # 3.3 K/mcL (1.6-8.9); Platelet Count 134 K/mcL (140-400); Red Blood Count 3.51 M/mcL (4.19-5.50); Red Cell Distribution Width 14.3 % (11.5-14.5); Segmented Neutrophils % 56.2 %
--- NOTE | 2017-08-22 01:59 | Emergency Department Note ---
Disposition Clinical Impression: Hemoptysis, Bleeding Disposition: Admitted As Inpatient Condition: Fair Referrals: Mike Leger Jr, MD [Primary Care Provider] - Forms: ED Satisfaction Letter Time of Disposition: 04:41 General Adult HPI - General Chief complaint: ED GI Bleed Time Seen by Provider: 08/22/17 01:49 Source: patient, EMS Mode of arrival: EMS Limitations: no limitations Nursing Notes Reviewed: Yes Vital Signs Reviewed: Yes - History of Present Illness HPI Narrative: Patient presents to the ED via EMS with the chief complaint of either vomiting or coughing up blood. Patient has a history of lung malignancy treated with radiation and chemotherapy with last treatment about 2 years ago. States that he felt a little more short of breath today than usual. He woke up his just prior to arrival and states the blood was just pouring out of his mouth. He denies any coughing or vomiting. Denies any chest pain, fever, rashes, diarrhea, or any other associated symptoms. Is not on any blood thinners. No history of cirrhosis or known history of esophageal varices Pain Scale: 6 - Related Data Home Medications Medication Instructions Recorded Confirmed Atorvastatin [Lipitor] 10 mg PO DAILY 12/28/14 08/22/17 Duloxetine HCl [Cymbalta] 60 mg PO BID 12/28/14 08/22/17 Gabapentin [Neurontin] 800 mg PO Q6HR 12/28/14 08/22/17 Ipratropium/Albuterol Sulfate 2 puff IH Q4-6H PRN 12/28/14 08/22/17 [Combivent Respimat Inhal [place]] Nortriptyline [Pamelor] 10 mg PO HS 12/28/14 08/22/17 Sennosides/Docusate Sodium [Senna 2 each PO DAILY PRN 12/28/14 04/12/17 Plus] Oxygen 3 - 3.5 l NS CONT 01/14/16 08/22/17 Furosemide [Lasix] 20 mg PO BID 06/11/16 08/22/17 Esomeprazole Magnesium [Nexium] 40 mg PO DAILY 04/12/17 08/22/17 predniSONE [PredniSONE] 5 mg PO DAILY 04/12/17 08/22/17 Oxycodone HCl/Acetaminophen 1 each PO TID PRN 08/22/17 08/22/17 [Percocet 10-325 mg Tablet] Previous Rx's Medication Instructions Recorded Levothyroxine [Synthroid] 175 mcg PO DAILY #90 tablet 08/15/15 Potassium Chloride 20 meq PO DAILY #90 tab.er.prt 01/17/16 Ipratropium/Albuterol Neb [Duoneb] 3 ml IH [id number] #0 inhsol 06/03/16 Allergies Allergy/AdvReac Type Severity Reaction Status Date / Time No Known Allergies Allergy Verified 04/12/17 16:00 Review of Systems: As reviewed in the HPI. All other systems reviewed are negative or normal. Past Medical History - Past Medical History Attestation: Yes The following information was validated with the patient. Source: patient Medical history: Reports: arthritis, cancer, COPD, GERD, hyperlipidemia, hypertension, malignancy, migraine, thyroid disease, other Surgical history: Reports: orthopedic, other, other Psychiatric history: Reports: anxiety, ADHD, depression - Social History Smoking Status: Former smoker Smokeless Tobacco Status: No Alcohol use: Reports: none Drug use: Reports: none Physical Exam - General Limitations: no limitations General appearance: alert, other (Patient covered in bright red blood) - Head Head exam: atraumatic - Eye Eye exam: Present: normal appearance - ENT ENT exam: normal oropharynx (Blood in the oropharynx and on face, bright red) - Neck Neck exam: Present: normal inspection, full ROM, trachea midline - Chest Chest inspection: Present: normal inspection, symmetric chest wall rise - Respiratory Respiratory exam: Present: other (Course breath sounds bilaterally). Absent: normal lung sounds bilaterally, respiratory distress - Cardiovascular Cardiovascular exam: Present: tachycardia - Abdominal Exam Abdominal exam: Present: soft, Non-Tender. Absent: tenderness - Extremities Exam Extremities exam: Present: normal inspection, full ROM. Absent: tenderness, pedal edema - Neurological Exam Neurological exam: Present: alert, oriented X3 - Psychiatric Psychiatric exam: Present: normal affect, normal mood - Skin Skin exam: Present: warm, dry, intact, normal color Course Course Narrative: Patient presenting with quite significant hemoptysis or hematemesis. EMS states that he filled up three quarters of a bucket and was bright red blood. We are suspecting that this is probably a pulmonary source. At this point due to his history of lung malignancy, radiation and chemotherapy. However, we are considering an upper GI source. The blood is very bright red and is not actively vomiting at this time. He is tachycardic and was slightly hypoxic. Certainly concerned about a PE. He was placed on supplemental oxygen, 2 peripheral IVs placed. We have ordered 2 units of blood as well as a CTA chest to rule out PE and a CT abdomen and pelvis with IV contrast to evaluate solid organs. - Reevaluation(s) Reevaluation #1: CT does not show any acute abnormality. No active bleeding, no pulmonary embolus. No perforated ulcer. Additionally, he has not had any recurrence of this bleeding and his vital signs remained stable. We are replacing 2 units of blood. We will admit to the hospitalist service. Accepted for admission under Dr. Kirk. Will place on 2N Vital Signs Temperature 98.1 F 08/22/17 01:40 Pulse Rate 110 08/22/17 01:40 Respiratory Rate 20 08/22/17 01:40 Blood Pressure 184/132 08/22/17 01:40 O2 Sat by Pulse Oximetry 84 08/22/17 01:40 Temperature 98.2 F 08/22/17 03:43 Pulse Rate 82 08/22/17 03:43 Respiratory Rate 18 08/22/17 03:43 Blood Pressure 123/82 08/22/17 03:43 O2 Sat by Pulse Oximetry 96 08/22/17 03:31 Oxygen Delivery Oxygen Delivery Nasal Cannula Medical Decision Making - Medical Records Medical records reviewed: Yes I reviewed the patient's medical records. - Lab Data Lab results reviewed: Yes I reviewed the patient's lab results. Result diagrams: 08/22/17 01:49 08/22/17 01:45 Lab Results 08/22/17 08/22/17 08/22/17 Range/Units 01:45 01:45 01:45 WBC (4.3-11.1) K/mcL RBC (4.19-5.50) M/mcL Hgb (12.9-16.9) g/dL Hct (37.5-50.1) % MCV (83.0-100.0) fL MCH (28.0-33.3) pg MCHC (31.6-35.5) g/dL RDW (11.5-14.5) % Plt Count (140-400) K/mcL MPV (9.4-12.4) fL Immature Gran % (0-4) % Seg Neutrophils % % Lymphocytes % % Monocytes % % Eosinophils % % Basophils % % Neutrophils # (1.6-8.9) K/mcL Lymphocytes # (0.6-4.6) K/mcL Monocytes # (0.0-1.3) K/mcL Eosinophils # (0.0-0.6) K/mcL Basophils # (0.0-0.2) K/mcL PT 11.4 (9.4-12.1) Seconds INR 1.1 APTT 26.1 (26.0-36.0) Seconds Sample Site ABG pH (7.32-7.45) pH Units ABG pCO2 (35-45) mmHg ABG pO2 (85-104) mmHg ABG HCO3 (21-27) mEq/L ABG Total CO2 (20-26) mEq/L ABG O2 Saturation (95-98) % ABG Base Excess (-2 to 3) mEq/L Haseeb Test O2 Delivery Device Inspired O2 (1-15=lpm [id number]=%) Sodium 137 (136-145) mEq/L Potassium 3.9 (3.5-5.1) mEq/L Chloride 98 (98-107) mEq/L Carbon Dioxide 31 H (23-29) mEq/L BUN 26 H (8-23) mg/dL Creatinine 0.67 L (0.70-1.30) mg/dL Est GFR ( Amer) > 60 (> 60) Est GFR (Non-Af Amer) > 60 (> 60) BUN/Creatinine Ratio 39 H (6-26) Glucose 140 H (70-105) mg/dL Calculated Osmolality 291 (280-300) Lactic Acid (0.5-2.2) mmol/L Calcium 8.9 (8.6-10.3) mg/dL Magnesium 1.7 (1.6-2.6) mg/dL Total Bilirubin 0.6 (0.3-1.0) mg/dL AST 27 (13-39) Units/L ALT 20 (7-52) Units/L Alkaline Phosphatase 72 (34-104) Units/L Troponin I < 0.03 (< 0.04) ng/mL Serum Total Protein 6.7 (6.4-8.9) g/dL Albumin 3.9 (3.5-5.7) g/dL Globulin 2.8 (2.4-3.5) g/dL Albumin/Globulin Ratio 1.4 (1.1-2.2) Lipase 20 (11-82) Units/L Blood Type O POSITIVE Antibody Screen NEGATIVE Crossmatch See Detail 08/22/17 08/22/17 08/22/17 Range/Units 01:49 02:05 02:35 WBC 5.8 (4.3-11.1) K/mcL RBC 3.51 L (4.19-5.50) M/mcL Hgb 9.4 L (12.9-16.9) g/dL Hct 30.5 L (37.5-50.1) % MCV 86.9 (83.0-100.0) fL MCH 26.8 L (28.0-33.3) pg MCHC 30.8 L (31.6-35.5) g/dL RDW 14.3 (11.5-14.5) % Plt Count 134 L (140-400) K/mcL MPV 10.3 (9.4-12.4) fL Immature Gran % 0.2 (0-4) % Seg Neutrophils % 56.2 % Lymphocytes % 29.8 % Monocytes % 9.7 % Eosinophils % 3.6 % Basophils % 0.5 % Neutrophils # 3.3 (1.6-8.9) K/mcL Lymphocytes # 1.7 (0.6-4.6) K/mcL Monocytes # 0.6 (0.0-1.3) K/mcL Eosinophils # 0.2 (0.0-0.6) K/mcL Basophils # 0.0 (0.0-0.2) K/mcL PT (9.4-12.1) Seconds INR APTT (26.0-36.0) Seconds Sample Site R Radial ABG pH 7.39 (7.32-7.45) pH Units ABG pCO2 59 H (35-45) mmHg ABG pO2 48 L* (85-104) mmHg ABG HCO3 36 H (21-27) mEq/L ABG Total CO2 38 H (20-26) mEq/L ABG O2 Saturation 82 L (95-98) % ABG Base Excess 9 H (-2 to 3) mEq/L Haseeb Test Positive O2 Delivery Device Cannula Inspired O2 4.0 (1-15=lpm [id number]=%) Sodium (136-145) mEq/L Potassium (3.5-5.1) mEq/L Chloride (98-107) mEq/L Carbon Dioxide (23-29) mEq/L BUN (8-23) mg/dL Creatinine (0.70-1.30) mg/dL Est GFR ( Amer) (> 60) Est GFR (Non-Af Amer) (> 60) BUN/Creatinine Ratio (6-26) Glucose (70-105) mg/dL Calculated Osmolality (280-300) Lactic Acid 1.3 (0.5-2.2) mmol/L Calcium (8.6-10.3) mg/dL Magnesium (1.6-2.6) mg/dL Total Bilirubin (0.3-1.0) mg/dL AST (13-39) Units/L ALT (7-52) Units/L Alkaline Phosphatase (34-104) Units/L Troponin I (< 0.04) ng/mL Serum Total Protein (6.4-8.9) g/dL Albumin (3.5-5.7) g/dL Globulin (2.4-3.5) g/dL Albumin/Globulin Ratio (1.1-2.2) Lipase (11-82) Units/L Blood Type Antibody Screen Crossmatch - Radiology Data Radiology results reviewed: Yes I reviewed the patient's radiology results. - EKG Data EKG #1 EKG attestation: Yes I reviewed and interpreted this EKG. EKG results narrative: Sinus tach, rate 111, MI interval 153, QRS 139, QTC 442, indeterminate axis, right bundle branch block with similar morphology on previous on 10/04/16
[2017-08-22 02:09] LABS: INR 1.1; Prothrombin Time 11.4 Seconds (9.4-12.1)
[2017-08-22 02:10] LABS: Alanine Aminotransferase 20 Units/L (7-52); Albumin 3.9 g/dL (3.5-5.7); Albumin/Globulin Ratio 1.4 (1.1-2.2); Alkaline Phosphatase 72 Units/L (34-104); Aspartate Amino Transferase 27 Units/L (13-39); BUN/Creatinine Ratio 39 (6-26); Bilirubin,Total 0.6 mg/dL (0.3-1.0); Blood Urea Nitrogen 26 mg/dL (8-23); Calcium 8.9 mg/dL (8.6-10.3); Carbon Dioxide 31 mEq/L (23-29); Chloride 98 mEq/L (98-107); Globulin 2.8 g/dL (2.4-3.5); Glucose 140 mg/dL (70-105); Lipase 20 Units/L (11-82); Magnesium 1.7 mg/dL (1.6-2.6); Osmolality,Calculated 291 (280-300); Potassium 3.9 mEq/L (3.5-5.1); Sodium 137 mEq/L (136-145); Total Protein 6.7 g/dL (6.4-8.9); eGFR For African Americans > 60 (> 60); eGFR For Non-African Americans > 60 (> 60)
[2017-08-22 02:12] LABS: Activated Partial Thrombo Time 26.1 Seconds (26.0-36.0)
[2017-08-22 02:14] LABS: Troponin I < 0.03 ng/mL (< 0.04)
[2017-08-22 02:43] LABS: ABG Base Excess 9 mEq/L (-2 to 3); ABG HCO3 36 mEq/L (21-27); ABG Oxygen Saturation 82 % (95-98); ABG PCO2 59 mmHg (35-45); ABG PH 7.39 pH Units (7.32-7.45); ABG PO2 48 mmHg (85-104); ABG TCO2 38 mEq/L (20-26)
--- NOTE | 2017-08-22 05:05 | Emergency Department Note ---
Disposition Clinical Impression: Hemoptysis, Bleeding Disposition: Admitted As Inpatient Condition: Fair Referrals: Mike Leger Jr, MD [Primary Care Provider] - Forms: ED Satisfaction Letter General Adult HPI - General Chief complaint: ED GI Bleed Stated complaint: VOMITING BLOOD Time Seen by Provider: 08/22/17 01:49 Source: patient, EMS Mode of arrival: EMS Limitations: no limitations - History of Present Illness Pain Scale: 6 - Related Data Home Medications Medication Instructions Recorded Confirmed Atorvastatin [Lipitor] 10 mg PO DAILY 12/28/14 08/22/17 Duloxetine HCl [Cymbalta] 60 mg PO BID 12/28/14 08/22/17 Gabapentin [Neurontin] 800 mg PO Q6HR 12/28/14 08/22/17 Ipratropium/Albuterol Sulfate 2 puff IH Q4-6H PRN 12/28/14 08/22/17 [Combivent Respimat Inhal [place]] Nortriptyline [Pamelor] 10 mg PO HS 12/28/14 08/22/17 Sennosides/Docusate Sodium [Senna 2 each PO DAILY PRN 12/28/14 04/12/17 Plus] Oxygen 3 - 3.5 l NS CONT 01/14/16 08/22/17 Furosemide [Lasix] 20 mg PO BID 06/11/16 08/22/17 Esomeprazole Magnesium [Nexium] 40 mg PO DAILY 04/12/17 08/22/17 predniSONE [PredniSONE] 5 mg PO DAILY 04/12/17 08/22/17 Oxycodone HCl/Acetaminophen 1 each PO TID PRN 08/22/17 08/22/17 [Percocet 10-325 mg Tablet] Previous Rx's Medication Instructions Recorded Levothyroxine [Synthroid] 175 mcg PO DAILY #90 tablet 08/15/15 Potassium Chloride 20 meq PO DAILY #90 tab.er.prt 01/17/16 Ipratropium/Albuterol Neb [Duoneb] 3 ml IH [id number] #0 inhsol 06/03/16 Allergies Allergy/AdvReac Type Severity Reaction Status Date / Time No Known Allergies Allergy Verified 04/12/17 16:00 Past Medical History - Past Medical History Medical history: Reports: arthritis, cancer, COPD, GERD, hyperlipidemia, hypertension, malignancy, migraine, thyroid disease, other Surgical history: Reports: orthopedic, other, other Psychiatric history: Reports: anxiety, ADHD, depression - Social History Smoking Status: Former smoker Smokeless Tobacco Status: No Alcohol use: Reports: none Drug use: Reports: none Physical Exam - General Limitations: no limitations General appearance: alert, other (Patient covered in bright red blood) Course Vital Signs Temperature 98.1 F 08/22/17 01:40 Pulse Rate 110 08/22/17 01:40 Respiratory Rate 20 08/22/17 01:40 Blood Pressure 184/132 08/22/17 01:40 O2 Sat by Pulse Oximetry 84 08/22/17 01:40 Temperature 98.2 F 08/22/17 03:43 Pulse Rate 82 08/22/17 03:43 Respiratory Rate 18 08/22/17 03:43 Blood Pressure 123/82 08/22/17 03:43 O2 Sat by Pulse Oximetry 96 08/22/17 03:31 Oxygen Delivery Oxygen Delivery Nasal Cannula Medical Decision Making - Lab Data Result diagrams: 08/22/17 01:49 08/22/17 01:45 Lab Results 08/22/17 08/22/17 08/22/17 Range/Units 01:45 01:45 01:45 WBC (4.3-11.1) K/mcL RBC (4.19-5.50) M/mcL Hgb (12.9-16.9) g/dL Hct (37.5-50.1) % MCV (83.0-100.0) fL MCH (28.0-33.3) pg MCHC (31.6-35.5) g/dL RDW (11.5-14.5) % Plt Count (140-400) K/mcL MPV (9.4-12.4) fL Immature Gran % (0-4) % Seg Neutrophils % % Lymphocytes % % Monocytes % % Eosinophils % % Basophils % % Neutrophils # (1.6-8.9) K/mcL Lymphocytes # (0.6-4.6) K/mcL Monocytes # (0.0-1.3) K/mcL Eosinophils # (0.0-0.6) K/mcL Basophils # (0.0-0.2) K/mcL PT 11.4 (9.4-12.1) Seconds INR 1.1 APTT 26.1 (26.0-36.0) Seconds Sample Site ABG pH (7.32-7.45) pH Units ABG pCO2 (35-45) mmHg ABG pO2 (85-104) mmHg ABG HCO3 (21-27) mEq/L ABG Total CO2 (20-26) mEq/L ABG O2 Saturation (95-98) % ABG Base Excess (-2 to 3) mEq/L Haseeb Test O2 Delivery Device Inspired O2 (1-15=lpm [id number]=%) Sodium 137 (136-145) mEq/L Potassium 3.9 (3.5-5.1) mEq/L Chloride 98 (98-107) mEq/L Carbon Dioxide 31 H (23-29) mEq/L BUN 26 H (8-23) mg/dL Creatinine 0.67 L (0.70-1.30) mg/dL Est GFR ( Amer) > 60 (> 60) Est GFR (Non-Af Amer) > 60 (> 60) BUN/Creatinine Ratio 39 H (6-26) Glucose 140 H (70-105) mg/dL Calculated Osmolality 291 (280-300) Lactic Acid (0.5-2.2) mmol/L Calcium 8.9 (8.6-10.3) mg/dL Magnesium 1.7 (1.6-2.6) mg/dL Total Bilirubin 0.6 (0.3-1.0) mg/dL AST 27 (13-39) Units/L ALT 20 (7-52) Units/L Alkaline Phosphatase 72 (34-104) Units/L Troponin I < 0.03 (< 0.04) ng/mL Serum Total Protein 6.7 (6.4-8.9) g/dL Albumin 3.9 (3.5-5.7) g/dL Globulin 2.8 (2.4-3.5) g/dL Albumin/Globulin Ratio 1.4 (1.1-2.2) Lipase 20 (11-82) Units/L Blood Type O POSITIVE Antibody Screen NEGATIVE Crossmatch See Detail 08/22/17 08/22/17 08/22/17 Range/Units 01:49 02:05 02:35 WBC 5.8 (4.3-11.1) K/mcL RBC 3.51 L (4.19-5.50) M/mcL Hgb 9.4 L (12.9-16.9) g/dL Hct 30.5 L (37.5-50.1) % MCV 86.9 (83.0-100.0) fL MCH 26.8 L (28.0-33.3) pg MCHC 30.8 L (31.6-35.5) g/dL RDW 14.3 (11.5-14.5) % Plt Count 134 L (140-400) K/mcL MPV 10.3 (9.4-12.4) fL Immature Gran % 0.2 (0-4) % Seg Neutrophils % 56.2 % Lymphocytes % 29.8 % Monocytes % 9.7 % Eosinophils % 3.6 % Basophils % 0.5 % Neutrophils # 3.3 (1.6-8.9) K/mcL Lymphocytes # 1.7 (0.6-4.6) K/mcL Monocytes # 0.6 (0.0-1.3) K/mcL Eosinophils # 0.2 (0.0-0.6) K/mcL Basophils # 0.0 (0.0-0.2) K/mcL PT (9.4-12.1) Seconds INR APTT (26.0-36.0) Seconds Sample Site R Radial ABG pH 7.39 (7.32-7.45) pH Units ABG pCO2 59 H (35-45) mmHg ABG pO2 48 L* (85-104) mmHg ABG HCO3 36 H (21-27) mEq/L ABG Total CO2 38 H (20-26) mEq/L ABG O2 Saturation 82 L (95-98) % ABG Base Excess 9 H (-2 to 3) mEq/L Haseeb Test Positive O2 Delivery Device Cannula Inspired O2 4.0 (1-15=lpm [id number]=%) Sodium (136-145) mEq/L Potassium (3.5-5.1) mEq/L Chloride (98-107) mEq/L Carbon Dioxide (23-29) mEq/L BUN (8-23) mg/dL Creatinine (0.70-1.30) mg/dL Est GFR ( Amer) (> 60) Est GFR (Non-Af Amer) (> 60) BUN/Creatinine Ratio (6-26) Glucose (70-105) mg/dL Calculated Osmolality (280-300) Lactic Acid 1.3 (0.5-2.2) mmol/L Calcium (8.6-10.3) mg/dL Magnesium (1.6-2.6) mg/dL Total Bilirubin (0.3-1.0) mg/dL AST (13-39) Units/L ALT (7-52) Units/L Alkaline Phosphatase (34-104) Units/L Troponin I (< 0.04) ng/mL Serum Total Protein (6.4-8.9) g/dL Albumin (3.5-5.7) g/dL Globulin (2.4-3.5) g/dL Albumin/Globulin Ratio (1.1-2.2) Lipase (11-82) Units/L Blood Type Antibody Screen Crossmatch Critical Care Time Critical Care Time: Yes Total Critical Care Time: 40 Attestation: Critical care performed: Time is exclusive of separately billable procedures. Time includes: direct patient care, patient reassessment, coordination of patient care, interpretation of data (laboratory data, radiology data, and respiratory data), review of patient's medical records, medical consultation and documentation of patient care. Procedures included in critical care time: Procedures excluded from critical care time: Attestation Statement - Attestation Attestation: I, Brodie Saeed MD, personally evaluated this patient and discussed their management with the resident physician. I reviewed the resident's note and agree with the documented findings, medical decision making, and plan of care. 62-year-old male presents to the emergency department by ambulance for complaint of bleeding from his mouth. Uncertain if this is coming from his lungs or his stomach. I did reports that she was in bed and patient sleeps in a recliner. He called out to her and when she went in to check on him she states there was blood everywhere and it was just rolling out of his mouth. She states he was not retching or did not appear vomiting. Also he was not really coughing. EMS reported a large amount of blood at the scene. No active bleeding on arrival the patient does have bright red blood on his face and hands and on his clothing. He chest pain or abdominal pain. He does complain of being more short of breath which started last evening. Patient does have a history of lung cancer in 2013 and had chemotherapy and radiation. He is not presently on any treatment and he finished his treatments and 2016. He is not on any anticoagulants. No prior history of GI bleeds normal bleeding problems. On examination patient is a well-developed male with severe kyphosis. He is in no acute distress. He is alert and oriented 3. No cyanosis or diaphoresis. Breath sounds are decreased but equal bilaterally. No wheezes noted. Some bilateral crackles. Heart regular rate and rhythm. Abdomen soft and nontender with present bowel sounds. Labs reviewed. CTA of the chest showed: 1. No definite scan evidence for pulmonary embolus. 2. Posttreatment changes again seen on the left with no acute infiltrate. CT of the abdomen and pelvis with IV contrast shows: Limited exam with no definite acute process. Cholelithiasis. Patient had no further active bleeding here in the emergency department. He was given PRBCs. The hospitalist, Dr. Kirk, was consulted and accepted admission of the patient.
[2017-08-22] MEDS ORDERED: Acetaminophen 325 MG TABLET PO PRN (05:53)
[2017-08-22] MEDS ORDERED: Naloxone 0.4 MG/ML INJ IVP PRN (05:53)
[2017-08-22] MEDS ORDERED: Ipratropium/Albuterol Neb 3 ML IH PRN (05:58)
--- NOTE | 2017-08-22 06:19 | Internal Med History&Physical ---
Date of Encounter: 08/22/17 Time of Encounter: 05:00 Internal Medicine - H&P: HPI Chief complaint: Hemotemesis Admitted From: Home Plans for Post Hospital Care: Home History of present illness: Mr. Soria is a 62 year old male presented to ER for hematemesis/hemoptysis at home. His past medical history is significant for lung cancer S/P chemotherapy and radiation therapy, COPD, Severe GERD s/p fundoplication 5 years ago, chronic back pain on pain pump, recurrent aspiration PNA due to GERD Blood patient's family, patient has large amount of blood come up from mouth at about 1:15 AM this morning, when patient sit on recliner, right after nebulizer treatment. Patient has a cough. Not very sure it is hematemesis or hemoptysis. The bleeding is about half gallon. EMS was called and patient was transferred to our hospital ER. As patient to get to ER, the bleeding has stopped. Patient denies chest pain, abdominal pain, or nausea. No recent black stool. Patient has chronic shortness of breath which is at his baseline right before the bleeding. Patient was found tachycardia in ER and needed higher-level oxygen to maintain saturation (patient use home oxygen 3 L at home , needs 6 later in emergency room). Patient was given 1 L bolus IV fluid and started 2 units of PRBC transfusion and admitted for further management. Past Med Surg Social Fam HX - Past Medical History Medical history: arthritis, cancer, COPD, GERD, hyperlipidemia, hypertension, malignancy, migraine, thyroid disease, other Psychiatric history: anxiety, ADHD, depression - Past Surgical History Surgical History: orthopedic, other, other - Social History Smoking Status: Former smoker Smokeless Tobacco Status: No Alcohol use: none Drug use: none - Family History Mother Living Status: Still Living Hx Family Cardiac Disorders: Yes Hx Family Respiratory Disorders: Yes (COPD) Hx Family Neurologic Disorders: Yes (dementia) Father Living Status: Still Living Hx Family Cardiac Disorders: Yes (CHF, COPD) Hx Family Endocrine Disorder: Yes (DM) Internal Medicine - H&P: Meds Atorvastatin [Lipitor] 10 mg PO DAILY 12/28/14 [History] Duloxetine HCl [Cymbalta] 60 mg PO BID 12/28/14 [History] Gabapentin [Neurontin] 800 mg PO Q6HR 12/28/14 [History] Ipratropium/Albuterol Sulfate [Combivent Respimat Inhal [place]] 2 puff IH Q4-6H PRN 12/28/14 [History] Nortriptyline [Pamelor] 10 mg PO HS 12/28/14 [History] Sennosides/Docusate Sodium [Senna Plus] 2 each PO DAILY PRN 12/28/14 [History] Levothyroxine [Synthroid] 175 mcg PO DAILY #90 tablet 08/15/15 [Rx] Oxygen 3 - 3.5 l NS CONT 01/14/16 [History] Potassium Chloride 20 meq PO DAILY #90 tab.er.prt 01/17/16 [Rx] Ipratropium/Albuterol Neb [Duoneb] 3 ml IH [id number] #0 inhsol 06/03/16 [Rx] Furosemide [Lasix] 20 mg PO BID 06/11/16 [History] Esomeprazole Magnesium [Nexium] 40 mg PO DAILY 04/12/17 [History] predniSONE [PredniSONE] 5 mg PO DAILY 04/12/17 [History] Dextroamphetamine/Amphetamine [Adderall 10 mg Tablet] 20 mg PO BID 08/22/17 [ History] Oxycodone HCl/Acetaminophen [Percocet 10-325 mg Tablet] 1 each PO TID PRN [History] 3 Allergy/AdvReac Type Severity Reaction Status Date / Time No Known Allergies Allergy Verified 04/12/17 16:00 All Systems PM: A 10-system review of systems was performed and is negative for pertinent findings except as documented above in the HPI. - Constitutional Vitals: Temp Pulse Resp BP Pulse Ox 98.2 F 95 18 134/100 93 08/22/17 03:43 08/22/17 05:30 08/22/17 03:43 08/22/17 05:30 08/22/17 05:30 General appearance: Present: A&O X 3, no acute distress, answers questions appropriately Exam: Lethargic - Head Head exam: Present: atraumatic, normocephalic - Eye Eye exam: Present: PERRL, conjuntiva pink, sclera anicteric Pupils: Present: PERRL - Neck Neck exam general surgery: Present: supple, trachea midline. Absent: lymphadenopathy - Respiratory Respiratory exam: Present: CTAB, rhonchi (Diffused rhonchi bilaterally). Absent : accessory muscle use, rales, wheezes - Cardiovascular Cardiovascular exam: Present: RRR, +S1, +S2. Absent: diastolic murmur, gallop, rubs, systolic murmur - GI/Abdominal GI/Abdominal exam: Present: normal bowel sounds, soft, no peritoneal signs. Absent: distended, tenderness - Extremities Exam Extremities exam: Present: warm, radial pulses palpable and symmetrical. Absent : calf tenderness, cyanotic, pedal edema - Neurological Exam Neurological exam: Present: CN II-XII intact, oriented X3, no focal deficits. Absent: pronater drift, facial droop, speech deficit - Skin Skin exam: Present: dry, intact Internal Med - H&P Results - Labs CBC & Chem 7: 08/22/17 01:49 08/22/17 01:45 Labs: Short CBC 08/22/17 Range/Units 01:49 WBC 5.8 (4.3-11.1) K/mcL Hgb 9.4 L (12.9-16.9) g/dL Hct 30.5 L (37.5-50.1) % Plt Count 134 L (140-400) K/mcL Neutrophils # 3.3 (1.6-8.9) K/mcL BMP 08/22/17 01:45 Sodium 137 Potassium 3.9 Chloride 98 Carbon Dioxide 31 H BUN 26 H Creatinine 0.67 L Glucose 140 H Calcium 8.9 Cardiac Enzymes 08/22/17 Range/Units 01:45 Troponin I < 0.03 (< 0.04) ng/mL Liver Function 08/22/17 Range/Units 01:45 Total Bilirubin 0.6 (0.3-1.0) mg/dL AST 27 (13-39) Units/L ALT 20 (7-52) Units/L Alkaline Phosphatase 72 (34-104) Units/L Albumin 3.9 (3.5-5.7) g/dL - ABG Interpretation ABG results: 08/22/17 02:35 ABG pH 7.39 ABG pCO2 59 H ABG pO2 48 L* ABG HCO3 36 H ABG Total CO2 38 H ABG O2 Saturation 82 L ABG Base Excess 9 H - Impressions ITS Impressions Chest X-Ray 08/22/17 01:44 IMPRESSION: 1. Possible slightly increased left basilar opacity is nonspecific, could represent atelectasis or consolidation. 2. Blunting of the right costophrenic angle may represent small effusion. 3. Remaining chronic lung findings are grossly similar. D/ / Lee Shaikh MD / Lee Shaikh MD Interpreting Provider: Lee Shaikh MD Chest CTA 08/22/17 01:51 IMPRESSION: 1. No definite scan evidence for pulmonary embolus. 2. Posttreatment changes again seen on the left with no acute infiltrate. D/ / Kings Elizabeth MD / Kings Elizabeth MD Interpreting Provider: Kings Elizabeth MD Abdomen/Pelvis CT 08/22/17 01:56 IMPRESSION: Limited exam with no definite acute process. Cholelithiasis. D/ / Kings Elizabeth MD / Kings Elizabeth MD Interpreting Provider: Kings Elizabeth MD - Assessment and plan (1) Hematemesis Current Visit: Yes Status: Acute Assessment and plan: Patient has large amount of blood come out from mouth. Patient has history of severe GERD s/p fundoplication. Although not sure if it is hematemesis or hemoptysis, I will think it is more like hematemesis because of the large amount of blood loss (if it is from lung, pt most have already severe respiratory symptoms or even cannot survive). - Place patient on nothing by mouth, IV fluid, IV PPI drip - Aspiration precaution - Consult surgery for possible scope Qualifiers: Nausea presence: without nausea Qualified Code(s): K92.0 - Hematemesis (2) Aspiration pneumonia Current Visit: Yes Status: Acute Assessment and plan: Patient has large amount of bloody vomiting. Increased oxygen requirement. Diffuse rhonchi bilaterally. History of recurrent aspiration pneumonia. - We will start Unasyn IV for early aspiration pneumonia - DuoNeb scheduled and when necessary - Oxygen supportive treatment - Elevation of head of bed, continuous aspiration precaution Qualifiers: Aspiration pneumonia type: unspecified Laterality: unspecified laterality Lung location: unspecified part of lung Qualified Code(s): J69.0 - Pneumonitis due to inhalation of food and vomit (3) Chronic steroid use Current Visit: Yes Status: Acute Assessment and plan: Patient is on prednisone 5 mg daily at home. Will place patient on stress dose hydrocortisone to prevent adrenal insufficiency (4) Acute blood loss anemia Current Visit: Yes Status: Acute Assessment and plan: Patient had lost about half gallon of blood acutely. Seems bleeding stopped now. Will give blood transfusion for totally PRBC 4. Check H&H every 4 hours and vitals every 30 minutes (5) GERD (gastroesophageal reflux disease) Current Visit: Yes Status: Acute Assessment and plan: Continue IV PPI drip at this point Qualifiers: Esophagitis presence: with esophagitis Qualified Code(s): K21.0 - Gastro- esophageal reflux disease with esophagitis (6) COPD (chronic obstructive pulmonary disease) Current Visit: No Status: Acute Assessment and plan: Place patient on DuoNeb scheduled and when necessary. Oxygen supportive treatment Qualifiers: COPD type: COPD with acute exacerbation Qualified Code(s): J44.1 - Chronic obstructive pulmonary disease with (acute) exacerbation (7) Essential hypertension Current Visit: No Status: Chronic Assessment and plan: Closely monitor BP. Hold BP medication at this point (8) DVT prophylaxis Current Visit: No Status: Acute Assessment and plan: EPCD (9) Malignant cachexia Current Visit: No Status: Chronic Assessment and plan: Continue supportive treatment (10) Hemoptysis Current Visit: Yes Status: Acute Assessment and plan: Hemoptysis cannot rule out. Will consult pulmonology for further management (11) Non-small cell carcinoma of left lung, stage 4 Current Visit: No Status: Chronic Assessment and plan: Patient had chemotherapy and radiation therapy. CTA in emergency room did not show tumor/mass in lung (12) Hypothyroidism Current Visit: No Status: Chronic Assessment and plan: We will resume home medication after restart diet Qualifiers: Hypothyroidism type: unspecified Qualified Code(s): E03.9 - Hypothyroidism , unspecified - Time Spent With Patient Total time spent is greater than 50% in coordination of care (as documented) at patient's floor/unit and/or counseling patient: 40 minutes Greater than 35 minutes
[2017-08-22 06:57] LABS: Hematocrit 31.3 % (37.5-50.1); Hemoglobin 9.5 g/dL (12.9-16.9)
[2017-08-22] MEDS: Ampicillin/Sulbactam 3,000 MG in 0.9 % Sodium Chloride Mini Bag 100 ML IVPB SCH ×3 (07:06→17:10)
[2017-08-22] MEDS: Hydrocortisone Sodium Succ 100 MG/2 ML VIAL IVP SCH ×3 (07:07→17:10)
[2017-08-22] MEDS: 0.9 % Sodium Chloride 1,000 ML IVC SCH ×2 (07:07→21:51)
[2017-08-22] MEDS: Pantoprazole 40 MG in 0.9 % Sodium Chloride Mini Bag 100 ML IVC SCH ×3 (07:07→17:10)
--- NOTE | 2017-08-22 09:36 | Pulmonology Consult Note ---
Date of Encounter: 08/22/17 Time of Encounter: 09:00 Assessment and Plan (1) Hemoptysis Current Visit: Yes Status: Suspected Is not clear from the history if this is hemoptysis or not and patient had epistaxis according to the family which could be the reason for coughing up blood. Reviewing CT chest there is no significant changes and only post radiation changes and the amount of the blood that patient described it is not realistic coming from the lung. We will monitor and surgeon will see patient for evaluation of hematemesis. Continue monitoring H&H. Thank you for the consultation and if there is any evidence of hemoptysis will consider bronchoscopy. (2) Hematemesis Current Visit: Yes Status: Acute Surgery has been consulted for evaluation. Qualifiers: Nausea presence: without nausea Qualified Code(s): K92.0 - Hematemesis History of Present Illness Consult date: 08/22/17 Requesting physician: Silverio Rosenthal Reason for consult: other (Coughing blood) Chief complaint: Hematemesis History of present illness: This is very pleasant 62-year-old male who presented to emergency room for hematemesis and questionable coughing, blood. Patient is not sure what he had to think he was coughing some blood but maybe vomiting. Patient has significant history of lung cancer status post chemoradiation. Patient also has history of aspiration pneumonia due to GERD. According to the nurse taking care of patient he was told by the family he had epistaxis. Patient has not had any coughing, blood or hematemesis since he has been here. Patient denies any chest pain at this time and he denies any significant dyspnea and no change in his chronic shortness of breath. She was given fluid and blood transfusion. He denies any significant wheezing and no sputum production. Past Med Surg Social Fam HX - Past Medical History Medical history: arthritis, cancer, COPD, GERD, hyperlipidemia, hypertension, malignancy, migraine, thyroid disease, other Psychiatric history: anxiety, ADHD, depression - Past Surgical History Surgical History: orthopedic, other, other - Social History Smoking Status: Former smoker Smokeless Tobacco Status: No Alcohol use: none Drug use: none - Family History Mother Living Status: Still Living Hx Family Cardiac Disorders: Yes Hx Family Respiratory Disorders: Yes (COPD) Hx Family Neurologic Disorders: Yes (dementia) Father Living Status: Still Living Hx Family Cardiac Disorders: Yes (CHF, COPD) Hx Family Endocrine Disorder: Yes (DM) Medications and Allergies Atorvastatin [Lipitor] 10 mg PO DAILY 12/28/14 [History] Duloxetine HCl [Cymbalta] 60 mg PO BID 12/28/14 [History] Gabapentin [Neurontin] 800 mg PO Q6HR 12/28/14 [History] Ipratropium/Albuterol Sulfate [Combivent Respimat Inhal [place]] 2 puff IH Q4-6H PRN 12/28/14 [History] Nortriptyline [Pamelor] 10 mg PO HS 12/28/14 [History] Sennosides/Docusate Sodium [Senna Plus] 2 each PO DAILY PRN 12/28/14 [History] Levothyroxine [Synthroid] 175 mcg PO DAILY #90 tablet 08/15/15 [Rx] Oxygen 3 - 3.5 l NS CONT 01/14/16 [History] Potassium Chloride 20 meq PO DAILY #90 tab.er.prt 01/17/16 [Rx] Ipratropium/Albuterol Neb [Duoneb] 3 ml IH [id number] #0 inhsol 06/03/16 [Rx] Furosemide [Lasix] 20 mg PO BID 06/11/16 [History] Esomeprazole Magnesium [Nexium] 40 mg PO DAILY 04/12/17 [History] predniSONE [PredniSONE] 5 mg PO DAILY 04/12/17 [History] Acetylcysteine 2 ml IH Q6H 08/22/17 [History] Dextroamphetamine/Amphetamine [Adderall 10 mg Tablet] 20 mg PO BID 08/22/17 [ History] Oxycodone HCl/Acetaminophen [Percocet 10-325 mg Tablet] 1 each PO TID PRN [History] 3 Allergy/AdvReac Type Severity Reaction Status Date / Time No Known Allergies Allergy Verified 04/12/17 16:00 All Systems: The remainder of the systems were reviewed and are negative Physical Examination Vital Signs: Vital Signs, Last 4 Hours Temp Pulse Resp BP Pulse Ox 08/22/17 06:38 97.9 F 101 14 162/116 96 General appearance: appears uncomfortable Eyes: nonicteric ENT: other (Dry blood in the mouth and nose) Neck: supple Effort: mildly labored Inspection: kyphosis Auscultation: bilateral: diminished breath sounds Percussion: bilateral: not dull Cardiovascular: regular rate and rhythm Gastrointestinal: normoactive bowel sounds, non-distended Extremities: no cyanosis normal mental status mood appropriate Results - Laboratory Findings CBC and BMP: 08/22/17 06:43 08/22/17 01:45 ABG ABG pH 7.39 pH Units (7.32-7.45) 08/22/17 02:35 ABG pCO2 59 mmHg (35-45) H 08/22/17 02:35 ABG pO2 48 mmHg (85-104) L* 08/22/17 02:35 ABG O2 Saturation 82 % (95-98) L 08/22/17 02:35 PT/INR, D-dimer PT 11.4 Seconds (9.4-12.1) 08/22/17 01:45 Abnormal lab findings: Abnormal lab results RBC 3.51 M/mcL (4.19-5.50) L 08/22/17 01:49 Hgb 9.5 g/dL (12.9-16.9) L 08/22/17 06:43 Hct 31.3 % (37.5-50.1) L 08/22/17 06:43 MCH 26.8 pg (28.0-33.3) L 08/22/17 01:49 MCHC 30.8 g/dL (31.6-35.5) L 08/22/17 01:49 Plt Count 134 K/mcL (140-400) L 08/22/17 01:49 ABG pCO2 59 mmHg (35-45) H 08/22/17 02:35 ABG pO2 48 mmHg (85-104) L* 08/22/17 02:35 ABG HCO3 36 mEq/L (21-27) H 08/22/17 02:35 ABG Total CO2 38 mEq/L (20-26) H 08/22/17 02:35 ABG O2 Saturation 82 % (95-98) L 08/22/17 02:35 ABG Base Excess 9 mEq/L (-2 to 3) H 08/22/17 02:35 Carbon Dioxide 31 mEq/L (23-29) H 08/22/17 01:45 BUN 26 mg/dL (8-23) H 08/22/17 01:45 Creatinine 0.67 mg/dL (0.70-1.30) L 08/22/17 01:45 BUN/Creatinine Ratio 39 (6-26) H 08/22/17 01:45 Glucose 140 mg/dL (70-105) H 08/22/17 01:45 - Diagnostic Findings CT scan - chest: report reviewed, image reviewed - Clinical Findings Intake & Output: Intake & Output 08/21/17 08/22/17 08/22/17 23:59 07:59 15:59 Intake Total 1000 / 1329 0 / 0 Balance 1000 / 1329 0 / 0 Weight 61.2 kg Consult Discharge Plan - Plan Referrals: Mike Leger Jr, MD [Primary Care Provider] -
--- NOTE | 2017-08-22 09:41 | General Surgery Consult Note ---
<Erich West - Last Filed: 08/22/17 13:42> Date of Encounter: 08/22/17 Time of Encounter: 09:00 Assessment and Plan (1) Hematemesis Current Visit: Yes Status: Acute 1 episode of bright red hematemesis per patient and family prior to arrival to ED 9.5(9.4), mildy tachycardic, hypertensive on exam Plan for EGD this afternoon with Dr. Nunn; patient and family in agreement NPO IV Fluids Titrating Nasal cannula to sats >90 Qualifiers: Nausea presence: without nausea Qualified Code(s): K92.0 - Hematemesis (2) Acute blood loss anemia Current Visit: Yes Status: Acute Initial H&H was drawn in ED after single episode of hematemesis prior to arrival Received 1U of 2U ordered since admission. 08/22 AM Hgb 9.5(9.4) No new episodes of vomiting or hematemesis since presentation to ED History of Present Illness Consult date: 08/22/17 Reason for consult: other (hematemesis) Requesting physician: Silverio Rosenthal History of present illness: Mr. Edgard Soria is a 62 year old male with past medical history of GERD on Nexium , fundoplication 2012, COPD on 3L home O2, lung cancer in remission, who was admitted for single episode of hematemesis prior to arrival to [facility] at 010. Patient denies recent vomiting prior to this, no melena, mild abdominal pain. He quit smoking 9 years ago. He has recalls colonoscopy 8-10 years ago was unremarkable, he has not had a procedure/EGD to the upper GI since his Nellei procedure. He has family history of colon cancer in his brother of a similar age who was diagnosed in 2012. He is not on anticoagulation. Past Med Surg Social Fam HX - Past Medical History Medical history: arthritis, cancer, COPD, GERD, hyperlipidemia, hypertension, malignancy, migraine, thyroid disease, other Psychiatric history: anxiety, ADHD, depression - Past Surgical History Surgical History: orthopedic, other, other - Social History Smoking Status: Former smoker Smokeless Tobacco Status: No Alcohol use: none Drug use: none - Family History Mother Living Status: Still Living Hx Family Cardiac Disorders: Yes Hx Family Respiratory Disorders: Yes (COPD) Hx Family Neurologic Disorders: Yes (dementia) Father Living Status: Still Living Hx Family Cardiac Disorders: Yes (CHF, COPD) Hx Family Endocrine Disorder: Yes (DM) Medications and Allergies Atorvastatin [Lipitor] 10 mg PO DAILY 12/28/14 [History] Duloxetine HCl [Cymbalta] 60 mg PO BID 12/28/14 [History] Gabapentin [Neurontin] 800 mg PO Q6HR 12/28/14 [History] Ipratropium/Albuterol Sulfate [Combivent Respimat Inhal [place]] 2 puff IH Q4-6H PRN 12/28/14 [History] Nortriptyline [Pamelor] 10 mg PO HS 12/28/14 [History] Sennosides/Docusate Sodium [Senna Plus] 2 each PO DAILY PRN 12/28/14 [History] Levothyroxine [Synthroid] 175 mcg PO DAILY #90 tablet 08/15/15 [Rx] Oxygen 3 - 3.5 l NS CONT 01/14/16 [History] Potassium Chloride 20 meq PO DAILY #90 tab.er.prt 01/17/16 [Rx] Ipratropium/Albuterol Neb [Duoneb] 3 ml IH [id number] #0 inhsol 06/03/16 [Rx] Furosemide [Lasix] 20 mg PO BID 06/11/16 [History] Esomeprazole Magnesium [Nexium] 40 mg PO DAILY 04/12/17 [History] predniSONE [PredniSONE] 5 mg PO DAILY 04/12/17 [History] Acetylcysteine 2 ml IH Q6H 08/22/17 [History] Dextroamphetamine/Amphetamine [Adderall 10 mg Tablet] 20 mg PO BID 08/22/17 [ History] Oxycodone HCl/Acetaminophen [Percocet 10-325 mg Tablet] 1 each PO TID PRN [History] 3 Allergy/AdvReac Type Severity Reaction Status Date / Time No Known Allergies Allergy Verified 04/12/17 16:00 Review of Systems All systems PM: The remainder of the systems were reviewed and are negative - Constitutional no fatigue, no night sweats, no weight loss - EENT Nose, mouth and throat: no epistaxis, no hoarseness - Cardiovascular no chest pain, no dyspnea - Respiratory hemoptysis, no cough - Gastrointestinal abdominal pain, heartburn, hematemesis, no constipation, no diarrhea, no melena - Neurological no memory loss - Psychiatric no confusion General Surgery Exam Initial Vital Signs Temp Pulse Resp BP Pulse Ox 98.1 F 110 20 184/132 84 08/22/17 01:40 08/22/17 01:40 08/22/17 01:40 08/22/17 01:40 08/22/17 01:40 - General physical appearance no distress, other (somewhat frail appearing) - ENT normal mucosa - Respiratory normal expansion, clear to auscultation - Cardiovascular Cardiovascular exam: Present: tachycardia, no murmurs/rubs/gallops - Neurologic Present: normal coordination - Musculoskeletal Present: other (kyphotic back) - Psychiatric Psychiatric general surgery: Present: A&Ox3, appropriate, speech is normal, memory intact Exam Initial Vital Signs Temp Pulse Resp BP Pulse Ox 98.1 F 110 20 184/132 84 08/22/17 01:40 08/22/17 01:40 08/22/17 01:40 08/22/17 01:40 08/22/17 01:40 Results - Labs 08/22/17 13:02 08/22/17 01:45 Abnormal lab results RBC 3.51 M/mcL (4.19-5.50) L 08/22/17 01:49 Hgb 9.5 g/dL (12.9-16.9) L 08/22/17 06:43 Hct 31.3 % (37.5-50.1) L 08/22/17 06:43 MCH 26.8 pg (28.0-33.3) L 08/22/17 01:49 MCHC 30.8 g/dL (31.6-35.5) L 08/22/17 01:49 Plt Count 134 K/mcL (140-400) L 08/22/17 01:49 ABG pCO2 59 mmHg (35-45) H 08/22/17 02:35 ABG pO2 48 mmHg (85-104) L* 08/22/17 02:35 ABG HCO3 36 mEq/L (21-27) H 08/22/17 02:35 ABG Total CO2 38 mEq/L (20-26) H 08/22/17 02:35 ABG O2 Saturation 82 % (95-98) L 08/22/17 02:35 ABG Base Excess 9 mEq/L (-2 to 3) H 08/22/17 02:35 Carbon Dioxide 31 mEq/L (23-29) H 08/22/17 01:45 BUN 26 mg/dL (8-23) H 08/22/17 01:45 Creatinine 0.67 mg/dL (0.70-1.30) L 08/22/17 01:45 BUN/Creatinine Ratio 39 (6-26) H 08/22/17 01:45 Glucose 140 mg/dL (70-105) H 08/22/17 01:45 All other labs normal. Consult Discharge Plan - Plan Referrals: Mike Leger Jr, MD [Primary Care Provider] - <Nahed Nunn - Last Filed: 08/22/17 14:49> Date of Encounter: 08/22/17 Time of Encounter: 14:30 Assessment and Plan (1) Tachycardia Current Visit: No Status: Acute (2) Hematemesis Current Visit: Yes Status: Acute discussed with patient and his family his anemia with his episode of hematemesis will plan EGD with anesthesia, risks and benefits discussed and he wishes to proceed. continue PPI/carafate npo ivfh trend Hb Qualifiers: Nausea presence: without nausea Qualified Code(s): K92.0 - Hematemesis History of Present Illness History of present illness: agree with residents history hematemesis x1, no abdominal pain or nausea uncontrolled symptoms of gerd on PPI therapy s/p Nellie 6 yrs ago denies dysphagia Past Med Surg Social Fam HX - Past Medical History Source: patient Medical history: malignancy (lung cancer), other (contractures) - Past Surgical History Surgical History: other (nellie, laminectomy L4-5, fusion L4-5, spinal stimulater x2 (none present), pain pump x 3, hx egd/colonoscopy) Review of Systems All systems PM: reviewed and no additional remarkable complaints except as stated All systems PM: The remainder of the systems were reviewed and are negative General Surgery Exam Initial Vital Signs Temp Pulse Resp BP Pulse Ox 98.1 F 110 20 184/132 84 08/22/17 01:40 08/22/17 01:40 08/22/17 01:40 08/22/17 01:40 08/22/17 01:40 - General physical appearance no distress, cachectic, chronically ill - Eyes normal ocular movement - ENT normal mucosa, normocephalic, Other (dried blood on lips) - Neck trachea midline - Respiratory normal expansion, clear to auscultation - Cardiovascular Cardiovascular exam: Present: tachycardia - Abdomen Abdomen general surgery: Present: bowel sounds present, soft, non tender. Absent: distended, guarding, rebound - Integumentary Integumentary general surgery: Present: warm and dry, no abnormal pigmentation - Neurologic Present: CN 2-12 grossly intact, other (contracted) - Musculoskeletal Present: other - Psychiatric Psychiatric general surgery: Present: A&Ox3, speech is normal Exam Initial Vital Signs Temp Pulse Resp BP Pulse Ox 98.1 F 110 20 184/132 84 08/22/17 01:40 08/22/17 01:40 08/22/17 01:40 08/22/17 01:40 08/22/17 01:40 Results - Labs 08/22/17 13:02 08/22/17 01:45 Abnormal lab results RBC 3.51 M/mcL (4.19-5.50) L 08/22/17 01:49 Hgb 9.4 g/dL (12.9-16.9) L 08/22/17 13:02 Hct 30.7 % (37.5-50.1) L 08/22/17 13:02 MCH 26.8 pg (28.0-33.3) L 08/22/17 01:49 MCHC 30.8 g/dL (31.6-35.5) L 08/22/17 01:49 Plt Count 134 K/mcL (140-400) L 08/22/17 01:49 ABG pCO2 59 mmHg (35-45) H 08/22/17 02:35 ABG pO2 48 mmHg (85-104) L* 08/22/17 02:35 ABG HCO3 36 mEq/L (21-27) H 08/22/17 02:35 ABG Total CO2 38 mEq/L (20-26) H 08/22/17 02:35 ABG O2 Saturation 82 % (95-98) L 08/22/17 02:35 ABG Base Excess 9 mEq/L (-2 to 3) H 08/22/17 02:35 Carbon Dioxide 31 mEq/L (23-29) H 08/22/17 01:45 BUN 26 mg/dL (8-23) H 08/22/17 01:45 Creatinine 0.67 mg/dL (0.70-1.30) L 08/22/17 01:45 BUN/Creatinine Ratio 39 (6-26) H 08/22/17 01:45 Glucose 140 mg/dL (70-105) H 08/22/17 01:45 All other labs normal. - Attending Attestation I examined this patient and my medical decision-making was reviewed with the Resident Physician. I agree with the documented findings, disposition and treatment plan as described except to the extent set forth below.
[2017-08-22] MEDS: Ipratropium/Albuterol Neb 3 ML IH SCH ×3 (10:41→22:22)
[2017-08-22] MEDS ORDERED: *HR* Morphine 2 MG/ML SYRINGE IVP PRN (10:41)
[2017-08-22 13:29] LABS: Hematocrit 30.7 % (37.5-50.1); Hemoglobin 9.4 g/dL (12.9-16.9)
--- NOTE | 2017-08-22 14:42 | Anesthesia Evaluation PreOp ---
Date of Encounter: 08/22/17 Time of Encounter: 14:40 - Past History Planned Operation: EGD Cardiac History: HTN, Hyperlipidemia Pulmonary History: Former smoker (quit 2008), COPD (on 2L O2), Other (Lung CA) MATTRESS SPECIALIST History: Denies Any Significant HX Other Medical History: Thyroid, GERD Anesthesia History: No Prior Anesthetic Complications, Past Anesthesia (spinal stimulator x 2, L4-5 laminectomy and fusion, Pain Pump x 3, Nellie) Alcohol Use: none Drug use: none Medications and Allergies Atorvastatin [Lipitor] 10 mg PO DAILY 12/28/14 [History] Duloxetine HCl [Cymbalta] 60 mg PO BID 12/28/14 [History] Gabapentin [Neurontin] 800 mg PO Q6HR 12/28/14 [History] Ipratropium/Albuterol Sulfate [Combivent Respimat Inhal [place]] 2 puff IH Q4-6H PRN 12/28/14 [History] Nortriptyline [Pamelor] 10 mg PO HS 12/28/14 [History] Sennosides/Docusate Sodium [Senna Plus] 2 each PO DAILY PRN 12/28/14 [History] Levothyroxine [Synthroid] 175 mcg PO DAILY #90 tablet 08/15/15 [Rx] Oxygen 3 - 3.5 l NS CONT 01/14/16 [History] Potassium Chloride 20 meq PO DAILY #90 tab.er.prt 01/17/16 [Rx] Ipratropium/Albuterol Neb [Duoneb] 3 ml IH [id number] #0 inhsol 06/03/16 [Rx] Furosemide [Lasix] 20 mg PO BID 06/11/16 [History] Esomeprazole Magnesium [Nexium] 40 mg PO DAILY 04/12/17 [History] predniSONE [PredniSONE] 5 mg PO DAILY 04/12/17 [History] Acetylcysteine 2 ml IH Q6H 08/22/17 [History] Dextroamphetamine/Amphetamine [Adderall 10 mg Tablet] 20 mg PO BID 08/22/17 [ History] Oxycodone HCl/Acetaminophen [Percocet 10-325 mg Tablet] 1 each PO TID PRN [History] 3 Allergy/AdvReac Type Severity Reaction Status Date / Time No Known Allergies Allergy Verified 04/12/17 16:00 - Meds/Allergy Pre-op Review Medications Reviewed: Yes Allergies Reviewed: Yes Beta Blockers on Current Med List: No Anesthesia Results - Labs 08/22/17 13:02 08/22/17 01:45 08/04/2014 Echo Normal LV systolic function, LVEF 60-65%. Indeterminate diastolic function. Borderline dilated right ventricle with normal RV systolic function. Moderate-severely dilated left atrium. Moderately dilated right atrium. Moderate-severe tricuspid regurgitation. Mild pulmonary hypertension. Estimated RVSP = 39 mmHg. 09/16/2012 Stress * There is a small size, mild intensity mainly fixed basal inferior defect consistent with artifact. * Perfusion imaging was negative for ischemia or infarct. * Pharmacologic ECG was negative for ischemia at the level of heart rate achieved. * Patient had no chest pain with stress. * Normal hemodynamic response. * No arrhythmias noted with stress. * Gated EF = 70%. * The LV is not dilated. * There is no evidence of TID. * Patient may begin exercise program. - Imaging EKG: report reviewed (SINUS TACHYCARDIA WITH ARRHTTHMIA DIFFUSE NON SPECIFIC ST- T CHANGES ABNORMAL ECG.) Anesthesia Exam O2 Sat Height 1.63 m Weight 61.2 kg Weight 61.2 kg Weight 61.235 kg O2 Sat by Pulse Oximetry 97 O2 Sat by Pulse Oximetry 100 O2 Sat by Pulse Oximetry 96 O2 Sat by Pulse Oximetry 95 O2 Sat by Pulse Oximetry 93 O2 Sat by Pulse Oximetry 94 O2 Sat by Pulse Oximetry 96 O2 Sat by Pulse Oximetry 95 O2 Sat by Pulse Oximetry 92 O2 Sat by Pulse Oximetry 90 O2 Sat by Pulse Oximetry 84 Vital Signs Temp Pulse Resp BP Pulse Ox 98.1 F 110 20 184/132 84 08/22/17 01:40 08/22/17 01:40 08/22/17 01:40 08/22/17 01:40 08/22/17 01:40 Vital Signs/O2 Sat, Most Current Temp Pulse Resp BP Pulse Ox 97.1 F L 88 18 165/110 97 08/22/17 11:20 08/22/17 11:20 08/22/17 11:20 08/22/17 11:20 08/22/17 11:20 NPO (# of Hours): > 8 hrs Pain Scale: 0 Pain Scale Used: Numeric (1 - 10) - HEENT Pupil (Motor): Pupils equal, EOMI - MATTRESS SPECIALIST LOC: Oriented MATTRESS SPECIALIST Motor: Normal RUE, Normal LUE, Normal RLE, Normal LLE, Normal Face MATTRESS SPECIALIST Sensory: Normal: RUE, LUE, RLE, LLE, Face - Cardiac Rhythm: Regular Murmur: None JVD: No Carotid Bruit: No - Pulmonary Breath Sounds: bilateral Clear Respiratory Effort: Symmetrical Anesthesia Assess/Plan ASA Score: 3 Modified Kat Scale for Level of Consciousness: Cooperative, oriented, and tranquil Anesthetic Plan: MAC Autologous Blood: Yes Monitoring Plan: Standard Monitors Recovery Plan: Other
[2017-08-22] MEDS ORDERED: *HR* Propofol 200 MG/20 ML VIAL IVP ONE (14:51)
[2017-08-22] MEDS ORDERED: Ondansetron 4 MG/2 ML VIAL ONE (14:52)
[2017-08-22] MEDS ORDERED: Lidocaine -MPF 2% 2 ML VIAL ONE (14:52)
[2017-08-22] MEDS ORDERED: Dexamethasone 4 MG/ML VIAL ONE (14:52)
--- NOTE | 2017-08-22 15:57 | Event Note ---
Date of Encounter: 08/22/17 Time of Encounter: 15:56 EGD performed, no signs of blood in stomach, esophagus or duodenum, patient does have esophagitis consistent with reflux and biopies were take. He did have bright red blood, no oozing or bleeding in oropharynx just below epiglottis. If he has another bleeding episode recommend ENT consult
--- NOTE | 2017-08-22 18:44 | Event Note ---
Date of Encounter: 08/22/17 Time of Encounter: 11:00 Patient seen by a nocturnalist earlier this morning and also by myself 1. Hematemesis EGD done today showed no signs of blood in stomach, esophagus or duodenum but did have signs consistent with reflux; no bright red blood evident and oropharynx below epiglottis Will continue to monitor 2. Hemoptysis Pulmonology following and if continued episodes recommendations for bronchoscopy 3. Questionable aspiration pneumonia We will continue IV Zosyn for concerns for aspiration pneumonia 4. Non-small cell lung carcinoma stage IV
[2017-08-22 18:49] LABS: Hematocrit 34.7 % (37.5-50.1); Hemoglobin 10.7 g/dL (12.9-16.9)
--- NOTE | 2017-08-22 19:11 | Anesthesia Evaluation Post Op ---
Date of Encounter: 08/22/17 Time of Encounter: 19:11 - Vital Signs Vital Signs: Vital Signs/O2 Sat, Most Current Temp Pulse Resp BP Pulse Ox 96.6 F L 97 18 123/91 100 08/22/17 15:39 08/22/17 15:39 08/22/17 16:10 08/22/17 15:39 08/22/17 16:10 - Lungs Lungs: Clear Ascult./Percussion - Airway Airway: Non-obstructed - Cardiovascular Regular Rate - Mental Status Mental Status: Alert & Oriented, Answers Appropriately - Pain Pain Scale: 0 Pain Scale used: Numeric (1 - 10) - Nausea Vomiting Nausea Vomiting: Not Present - Hydration Hydration: NPO, Has not voided - Discharge PostOp Status: Transfer Patient to floor
[2017-08-22] MEDS: *HR* OxyCODONE/APAP 10/325 TABLET PO PRN (20:43)
[2017-08-23] MEDS: Ampicillin/Sulbactam 3,000 MG in 0.9 % Sodium Chloride Mini Bag 100 ML IVPB SCH ×5 (00:11→23:52)
[2017-08-23] MEDS: Hydrocortisone Sodium Succ 100 MG/2 ML VIAL IVP SCH ×4 (00:11→23:52)
[2017-08-23] MEDS: Pantoprazole 40 MG in 0.9 % Sodium Chloride Mini Bag 100 ML IVC SCH ×4 (00:12→12:24)
[2017-08-23] MEDS: Ipratropium/Albuterol Neb 3 ML IH SCH ×4 (03:32→20:41)
[2017-08-23] MEDS: *HR* OxyCODONE/APAP 10/325 TABLET PO PRN ×3 (03:58→21:42)
[2017-08-23 06:09] LABS: Basophils % 0.3 %; Hemoglobin 9.8 g/dL (12.9-16.9); Immature Granulocytes % 0.3 % (0-4); Lymphocytes # 0.3 K/mcL (0.6-4.6); Lymphocytes % 7.5 %; Mean Corpuscular HGB Conc 30.6 g/dL (31.6-35.5); Mean Corpuscular Volume 88.2 fL (83.0-100.0); Mean Platelet Volume 11.3 fL (9.4-12.4); Monocytes # 0.2 K/mcL (0.0-1.3); Monocytes % 4.6 %; Neutrophils # 3.4 K/mcL (1.6-8.9); Platelet Count 134 K/mcL (140-400); Red Blood Count 3.63 M/mcL (4.19-5.50); Red Cell Distribution Width 14.5 % (11.5-14.5); Segmented Neutrophils % 87.3 %
[2017-08-23 06:15] LABS: INR 1.1; Prothrombin Time 12.2 Seconds (9.4-12.1)
[2017-08-23 06:33] LABS: BUN/Creatinine Ratio 36 (6-26); Blood Urea Nitrogen 16 mg/dL (8-23); Calcium 8.9 mg/dL (8.6-10.3); Carbon Dioxide 34 mEq/L (23-29); Chloride 102 mEq/L (98-107); Glucose 114 mg/dL (70-105); Magnesium 1.6 mg/dL (1.6-2.6); Osmolality,Calculated 292 (280-300); Potassium 3.8 mEq/L (3.5-5.1); Sodium 140 mEq/L (136-145); eGFR For African Americans > 60 (> 60); eGFR For Non-African Americans > 60 (> 60)
--- NOTE | 2017-08-23 06:41 | Pulmonology Progress Note ---
Date of Encounter: 08/23/17 Time of Encounter: 06:41 Assessment and Plan (1) Acute and chronic respiratory failure with hypoxia Current Visit: No Status: Acute Continue supplemental oxygen to keep saturation greater than 88% Encourage incentive spirometry out of bed to chair and ambulation is aware to medicate atelectasis promoting VQ mismatching (2) COPD (chronic obstructive pulmonary disease) Current Visit: No Status: Acute Wheezing on exam today continue scheduled bronchodilators can consider increasing dose of prednisone as needed based upon clinical course Qualifiers: COPD type: COPD with acute exacerbation Qualified Code(s): J44.1 - Chronic obstructive pulmonary disease with (acute) exacerbation (3) Bleeding Current Visit: Yes Status: Acute Given crusted blood in the nasal mucosa and findings of EGD recommend formal ENT evaluation if this is unremarkable can prepare for bronchoscopy to rule out hemoptysis although I think this is less likely given CT findings continue to monitor patient and collect all episodes of hemorrhage of possible with basin at bedside Subjective Principal diagnosis: Expectoration of Blood Interval history: Patient is awake and alert today. He denies any further bleeding episodes. Underwent EGD yesterday with evidence of gastritis but no evidence of bleeding per report the endoscopist described bright red blood in the oropharynx just below the epiglottis and had recommended ENT consultation Objective PUL Vital signs: Last Vital Signs Temp 97.5 F L 08/23/17 04:34 Pulse 102 08/23/17 04:34 Resp 16 08/23/17 04:34 BP 134/90 08/23/17 04:34 Pulse Ox 95 08/23/17 04:34 General appearance: no acute distress ENT: other (The nasal mucosa bilaterally is noted to have crusted blood) Auscultation: bilateral: wheezes Cardiovascular: regular rate and rhythm normal mental status, non-focal exam mood appropriate Results - Laboratory Findings CBC and BMP: 08/23/17 05:23 08/23/17 05:23 ABG ABG pH 7.39 pH Units (7.32-7.45) 08/22/17 02:35 ABG pCO2 59 mmHg (35-45) H 08/22/17 02:35 ABG pO2 48 mmHg (85-104) L* 08/22/17 02:35 ABG O2 Saturation 82 % (95-98) L 08/22/17 02:35 PT/INR, D-dimer PT 12.2 Seconds (9.4-12.1) H 08/23/17 05:23 Abnormal lab findings: Abnormal lab results WBC 3.9 K/mcL (4.3-11.1) L 08/23/17 05:23 RBC 3.63 M/mcL (4.19-5.50) L 08/23/17 05:23 Hgb 9.8 g/dL (12.9-16.9) L 08/23/17 05:23 Hct 32.0 % (37.5-50.1) L 08/23/17 05:23 MCH 27.0 pg (28.0-33.3) L 08/23/17 05:23 MCHC 30.6 g/dL (31.6-35.5) L 08/23/17 05:23 Plt Count 134 K/mcL (140-400) L 08/23/17 05:23 Lymphocytes # 0.3 K/mcL (0.6-4.6) L 08/23/17 05:23 PT 12.2 Seconds (9.4-12.1) H 08/23/17 05:23 ABG pCO2 59 mmHg (35-45) H 08/22/17 02:35 ABG pO2 48 mmHg (85-104) L* 08/22/17 02:35 ABG HCO3 36 mEq/L (21-27) H 08/22/17 02:35 ABG Total CO2 38 mEq/L (20-26) H 08/22/17 02:35 ABG O2 Saturation 82 % (95-98) L 08/22/17 02:35 ABG Base Excess 9 mEq/L (-2 to 3) H 08/22/17 02:35 Carbon Dioxide 34 mEq/L (23-29) H 08/23/17 05:23 Creatinine 0.45 mg/dL (0.70-1.30) L 08/23/17 05:23 BUN/Creatinine Ratio 36 (6-26) H 08/23/17 05:23 Glucose 114 mg/dL (70-105) H 08/23/17 05:23 POC Glucose 118 mg/dL (70-99) H 08/22/17 23:50 - Clinical Findings Intake & Output: Intake & Output 04/15/18 04/15/18 04/16/18 15:59 23:59 07:59 Intake Total 200 / 200 1200 / 1200 100 / 100 Output Total 1850 / 1850 1400 / 1400 Balance -1650 / -1650 -200 / -200 100 / 100 Weight 61.2 kg 60.8 kg - VTE Documentation of Mechanical Device: Intermittent pneumatic compression device Consult Discharge Plan - Plan Referrals: Mike Leger Jr, MD [Primary Care Provider] -
[2017-08-23] MEDS: *HR* OxyCODONE Immed Rel 5 MG TABLET PO PRN ×2 (08:23→17:29)
[2017-08-23] MEDS ORDERED: Ondansetron 4 MG/2 ML VIAL IVP PRN (11:14)
[2017-08-23] MEDS: Gabapentin 400 MG CAPSULE PO SCH ×3 (12:00→20:05)
--- NOTE | 2017-08-23 12:59 | ENT - Consult Note ---
Date of Encounter: 08/23/17 Time of Encounter: 12:15 Assessment and Plan (1) Bleeding Current Visit: Yes Status: Acute No findings of upper airway etiology of bleeding. Suspect the hemoptysis is of pulmonary etiology as she has had negative endoscopic evaluation of the upper airway and his esophagus and stomach. Would recommend bronchoscopy by pulmonary services and a CT scan of the chest History of Present Illness Consult date: 08/23/17 Reason for ENT Consult: other (R/O epistaxis, hemoptysis) History of present illness: 62-year-old male who was admitted on August 22 in the director of sports medicine hours with recent bright red blood from mouth. Patient was immediately after nebulizer therapy for his COPD when he developed copious amounts of bright red blood from his mouth. This stopped prior to his evaluation in the emergency room and he has not had further bleeding since. He denies blood coming from the nose or sinus pain or pressure or purulent nasal secretions. Did require IV fluids and 1 unit of packed red blood cells yesterday. He has had EGD done which showed no GI source of bleeding. He had a chest x-ray done in the emergency room on admission which showed slight increased left basilar opacity. He has a significant past medical history of non-small cell lung cancer treated with chemotherapy and radiation therapy approximately [address] serial CT scans that were stable. Last CT scan was 6 months ago. Also has significant past medical history of severe GERD with recurrent aspiration pneumonias which required fundoplication 5 years ago. He has not had any further bleeding since his arrival to the ER yesterday. I have been asked to evaluate whether there is a source from the nose or throat. For this bleeding Past Med Surg Social Fam HX - Past Medical History Medical history: malignancy (lung cancer), other (contractures) Psychiatric history: anxiety, ADHD, depression - Past Surgical History Surgical History: other (isiah, laminectomy L4-5, fusion L4-5, spinal stimulater x2 (none present), pain pump x 3, hx egd/colonoscopy) - Social History Smoking Status: Former smoker Smokeless Tobacco Status: No Alcohol use: none Drug use: none - Family History Mother Living Status: Still Living Hx Family Cardiac Disorders: Yes Hx Family Respiratory Disorders: Yes (COPD) Hx Family Neurologic Disorders: Yes (dementia) Father Living Status: Still Living Hx Family Cardiac Disorders: Yes (CHF, COPD) Hx Family Endocrine Disorder: Yes (DM) Medications and Allergies Atorvastatin [Lipitor] 10 mg PO DAILY 12/28/14 [History] Duloxetine HCl [Cymbalta] 60 mg PO BID 12/28/14 [History] Gabapentin [Neurontin] 800 mg PO Q6HR 12/28/14 [History] Ipratropium/Albuterol Sulfate [Combivent Respimat Inhal [place]] 2 puff IH Q4-6H PRN 12/28/14 [History] Nortriptyline [Pamelor] 10 mg PO HS 12/28/14 [History] Sennosides/Docusate Sodium [Senna Plus] 2 each PO DAILY PRN 12/28/14 [History] Levothyroxine [Synthroid] 175 mcg PO DAILY #90 tablet 08/15/15 [Rx] Oxygen 3 - 3.5 l NS CONT 01/14/16 [History] Potassium Chloride 20 meq PO DAILY #90 tab.er.prt 01/17/16 [Rx] Ipratropium/Albuterol Neb [Duoneb] 3 ml IH [id number] #0 inhsol 06/03/16 [Rx] Furosemide [Lasix] 20 mg PO BID 06/11/16 [History] Esomeprazole Magnesium [Nexium] 40 mg PO DAILY 04/12/17 [History] predniSONE [PredniSONE] 5 mg PO DAILY 04/12/17 [History] Acetylcysteine 2 ml IH Q6H 08/22/17 [History] Dextroamphetamine/Amphetamine [Adderall 10 mg Tablet] 20 mg PO BID 08/22/17 [ History] Oxycodone HCl/Acetaminophen [Percocet 10-325 mg Tablet] 1 each PO TID PRN [History] 3 Allergy/AdvReac Type Severity Reaction Status Date / Time No Known Allergies Allergy Verified 04/12/17 16:00 ENT Exam Initial Vital Signs Temp Pulse Resp BP Pulse Ox 98.1 F 110 20 184/132 84 08/22/17 01:40 08/22/17 01:40 08/22/17 01:40 08/22/17 01:40 08/22/17 01:40 - General physical appearance no distress, cachectic, chronically ill - Eyes PERRL, normal ocular movement - ENT normal pinna, normal nares, normal mucosa, no congestion, atraumatic, normocephalic, CN 2-12 grossly intact, Other (Oral cavity without evidence of bleeding mass or lesions he is edentulous and has normal mucosa. Examination of the nasal cavity revealed no gross blood there is some old dry blood around the nasal vestibule with nasal cannula is at the mucosa within the nasal cavity is pink and I refer to procedure note of a nasal laryngoscopy that was done that did not reveal etiology of bleeding from the upper airway) - Neck no masses, trachea midline, no lymphadectomy - Respiratory normal expansion, normal respiratory effort, other (Patient has nasal cannula with oxygen supplementation and noted to have diffuse rhonchi and lateral) - Abdomen Abdomen: soft, non tender - Integumentary no rash - Neurologic CN 2-12 grossly intact, normal coordination Exam Initial Vital Signs Temp Pulse Resp BP Pulse Ox 98.1 F 110 20 184/132 84 08/22/17 01:40 08/22/17 01:40 08/22/17 01:40 08/22/17 01:40 08/22/17 01:40 - Additional Findings Procedure note for flexible nasal pharyngo-laryngoscopy. Patient was counseled about the procedure and gave verbal consent. His daughter and friend were in the room as well as nursing staff Nasal cavity was sprayed with topical decongestant and lidocaine. The flexible endoscope was passed through each nasal cavity side there is noted to be pink mucosa there were scattered spots of blood specks within the mucus that was old. The mucosa of the nasal cavity was pink without any purulence erythema lacerations or blood. Nasopharynx she had thick mucus scant yellow coloration but no blood noted no mass noted. Normal eustachian tubes bilateral Hypopharynx was normal there is no blood within the vallecula. The epiglottis was normal the pharyngeal ramirez were normal there is a speck of old blood within the left piriform sinus no erythema mass or active bleeding the larynx itself was with normal mobility. No mass no lesions. There is old blood in the posterior commissure and the anterior larynx and old blood above the false vocal cords bilateral but no blood seen coming through the cords at this time The endoscope was withdrawn the patient tolerated the procedure well. Results - Labs 08/23/17 05:23 08/23/17 05:23 Abnormal lab results WBC 3.9 K/mcL (4.3-11.1) L 08/23/17 05:23 RBC 3.63 M/mcL (4.19-5.50) L 08/23/17 05:23 Hgb 9.8 g/dL (12.9-16.9) L 08/23/17 05:23 Hct 32.0 % (37.5-50.1) L 08/23/17 05:23 MCH 27.0 pg (28.0-33.3) L 08/23/17 05:23 MCHC 30.6 g/dL (31.6-35.5) L 08/23/17 05:23 Plt Count 134 K/mcL (140-400) L 08/23/17 05:23 Lymphocytes # 0.3 K/mcL (0.6-4.6) L 08/23/17 05:23 PT 12.2 Seconds (9.4-12.1) H 08/23/17 05:23 ABG pCO2 59 mmHg (35-45) H 08/22/17 02:35 ABG pO2 48 mmHg (85-104) L* 08/22/17 02:35 ABG HCO3 36 mEq/L (21-27) H 08/22/17 02:35 ABG Total CO2 38 mEq/L (20-26) H 08/22/17 02:35 ABG O2 Saturation 82 % (95-98) L 08/22/17 02:35 ABG Base Excess 9 mEq/L (-2 to 3) H 08/22/17 02:35 Carbon Dioxide 34 mEq/L (23-29) H 08/23/17 05:23 Creatinine 0.45 mg/dL (0.70-1.30) L 08/23/17 05:23 BUN/Creatinine Ratio 36 (6-26) H 08/23/17 05:23 Glucose 114 mg/dL (70-105) H 08/23/17 05:23 POC Glucose 108 mg/dL (70-99) H 08/23/17 11:28 Diabetes panel 08/23/17 Range/Units 05:23 Sodium 140 (136-145) mEq/L Potassium 3.8 (3.5-5.1) mEq/L Chloride 102 (98-107) mEq/L Carbon Dioxide 34 H (23-29) mEq/L BUN 16 (8-23) mg/dL Creatinine 0.45 L (0.70-1.30) mg/dL Glucose 114 H (70-105) mg/dL Calcium 8.9 (8.6-10.3) mg/dL Calcium panel 08/23/17 Range/Units 05:23 Calcium 8.9 (8.6-10.3) mg/dL Pituitary panel 08/23/17 Range/Units 05:23 Sodium 140 (136-145) mEq/L Potassium 3.8 (3.5-5.1) mEq/L Chloride 102 (98-107) mEq/L Carbon Dioxide 34 H (23-29) mEq/L BUN 16 (8-23) mg/dL Creatinine 0.45 L (0.70-1.30) mg/dL Glucose 114 H (70-105) mg/dL Calcium 8.9 (8.6-10.3) mg/dL Adrenal panel 08/23/17 Range/Units 05:23 Sodium 140 (136-145) mEq/L Potassium 3.8 (3.5-5.1) mEq/L Chloride 102 (98-107) mEq/L Carbon Dioxide 34 H (23-29) mEq/L BUN 16 (8-23) mg/dL Creatinine 0.45 L (0.70-1.30) mg/dL Glucose 114 H (70-105) mg/dL Calcium 8.9 (8.6-10.3) mg/dL All other labs normal. Consult Discharge Plan - Plan Referrals: Mike Leger Jr, MD [Primary Care Provider] - 08/31/17 8:00 am Alanis Cuellar MD [Partnered Physician] - (SENT WEB REQUEST ON 08-23-17 @ [phone])
[2017-08-23] MEDS: ADDERALL 20 MG PO SCH (17:29)
--- NOTE | 2017-08-23 19:23 | Internal Med Progress Note ---
Date of Encounter: 08/23/17 Time of Encounter: 11:00 - Assessment and plan (1) Hematemesis Current Visit: Yes Status: Acute Assessment and plan: Patient has had large amount of blood come out from mouth. Consulted surgery for EGD which did not show any acute findings of GI bleeding Qualifiers: Nausea presence: unspecified Qualified Code(s): K92.0 - Hematemesis (2) Hemoptysis Current Visit: Yes Status: Suspected Assessment and plan: Hemoptysis cannot rule out. Pulmonology consulted for consideration for bronchoscopy given patient's history of non-small cell lung carcinoma stage IV (3) Acute blood loss anemia Current Visit: Yes Status: Acute Assessment and plan: Hemoglobin stable status post 1 unit packed red blood cells (4) Non-small cell carcinoma of left lung, stage 4 Current Visit: No Status: Chronic Assessment and plan: Patient had chemotherapy and radiation therapy. CTA in emergency room did not show tumor/mass in lung (5) Aspiration pneumonia Current Visit: Yes Status: Acute Assessment and plan: Patient has large amount of bloody vomiting. Increased oxygen requirement. History of recurrent aspiration pneumonia. Will continue Unasyn IV for early aspiration pneumonia Qualifiers: Aspiration pneumonia type: unspecified Laterality: unspecified laterality Lung location: unspecified part of lung Qualified Code(s): J69.0 - Pneumonitis due to inhalation of food and vomit (6) Hypothyroidism Current Visit: No Status: Chronic Assessment and plan: We will resume home medication after restart diet Qualifiers: Hypothyroidism type: unspecified Qualified Code(s): E03.9 - Hypothyroidism , unspecified (7) COPD (chronic obstructive pulmonary disease) Current Visit: No Status: Acute Assessment and plan: Place patient on DuoNeb scheduled and when necessary. Oxygen supportive treatment Qualifiers: COPD type: COPD with acute exacerbation Qualified Code(s): J44.1 - Chronic obstructive pulmonary disease with (acute) exacerbation (8) Essential hypertension Current Visit: No Status: Chronic Assessment and plan: Closely monitor BP. Hold BP medication at this point (9) Chronic steroid use Current Visit: Yes Status: Acute Assessment and plan: Patient is on prednisone 5 mg daily at home. Will place patient on stress dose hydrocortisone to prevent adrenal insufficiency (10) GERD (gastroesophageal reflux disease) Current Visit: Yes Status: Acute Assessment and plan: Continue IV PPI drip at this point Qualifiers: Esophagitis presence: with esophagitis Qualified Code(s): K21.0 - Gastro- esophageal reflux disease with esophagitis (11) DVT prophylaxis Current Visit: No Status: Acute Assessment and plan: EPCD - Time Spent With Patient Total time spent is greater than 50% in coordination of care (as documented) at patient's floor/unit and/or counseling patient: - Subjective Interval history: Patient who presented with episodes of hemoptysis or hematemesis as had no further episodes. EGD has been done which show no evidence of GI bleed and ENT evaluation today was negative as well. Recommendations for bronchoscopy due to patient's history of non-small small cell lung carcinoma stage IV - Constitutional Vitals: Temp Pulse Resp BP Pulse Ox 98.8 F 108 17 168/113 96 08/23/17 16:13 08/23/17 16:13 08/23/17 16:13 08/23/17 16:13 08/23/17 16:13 General appearance: Present: A&O X 3, no acute distress, answers questions appropriately - Respiratory Respiratory exam: Present: CTAB. Absent: accessory muscle use, rales, rhonchi, wheezes - Cardiovascular Cardiovascular exam: Present: RRR, +S1, +S2. Absent: diastolic murmur, gallop, rubs, systolic murmur Internal Medicine: Result - Labs CBC & Chem 7: 08/23/17 05:23 08/23/17 05:23 Labs: Short CBC 08/23/17 Range/Units 05:23 WBC 3.9 L (4.3-11.1) K/mcL Hgb 9.8 L (12.9-16.9) g/dL Hct 32.0 L (37.5-50.1) % Plt Count 134 L (140-400) K/mcL Neutrophils # 3.4 (1.6-8.9) K/mcL BMP 08/23/17 05:23 Sodium 140 Potassium 3.8 Chloride 102 Carbon Dioxide 34 H BUN 16 Creatinine 0.45 L Glucose 114 H Calcium 8.9 - ABG Interpretation ABG results: ABG ABG pH 7.39 pH Units (7.32-7.45) 08/22/17 02:35 ABG pCO2 59 mmHg (35-45) H 08/22/17 02:35 ABG pO2 48 mmHg (85-104) L* 08/22/17 02:35 ABG O2 Saturation 82 % (95-98) L 08/22/17 02:35 PT/INR, D-dimer PT 12.2 Seconds (9.4-12.1) H 08/23/17 05:23 - VTE Documentation of Mechanical Device: Intermittent pneumatic compression device Consult Discharge Plan - Plan Referrals: Mike Leger Jr, MD [Primary Care Provider] - 08/31/17 8:00 am Alanis Cuellar MD [Partnered Physician] - (SENT WEB REQUEST ON 08-23-17 @ 1007)
[2017-08-23] MEDS ORDERED: NON-FORMULARY MEDICATION 1 EACH EACH (Ipratropium/Albuterol Sulfate [Combivent Respimat In IH PRN (19:33)
[2017-08-23] MEDS ORDERED: Sennosides/Docusate Sodium TABLET PO PRN (19:33)
[2017-08-23] MEDS: Furosemide 20 MG TABLET PO SCH (20:05)
[2017-08-23] MEDS: Acetylcysteine 10% 2 ML INHSOL IH SCH ×2 (20:41)
[2017-08-23] MEDS ORDERED: DEXTROAMPHETAMINE PO SCH (21:00)
[2017-08-23] MEDS ORDERED: [UNRECOGNIZED DRUG - OTHER] PO SCH (21:00)
[2017-08-23] MEDS ORDERED: AMPHETAMINE PO SCH (21:00)
[2017-08-24] MEDS: Ipratropium/Albuterol Neb 3 ML IH SCH ×4 (00:26→11:19)
[2017-08-24] MEDS: Acetylcysteine 10% 2 ML INHSOL IH SCH (03:48)
[2017-08-24] MEDS: *HR* OxyCODONE/APAP 10/325 TABLET PO PRN (06:31)
[2017-08-24] MEDS: Ampicillin/Sulbactam 3,000 MG in 0.9 % Sodium Chloride Mini Bag 100 ML IVPB SCH (06:33)
[2017-08-24] MEDS ORDERED: Pantoprazole 40 MG VIAL IVP SCH (07:30)
--- NOTE | 2017-08-24 07:41 | Pulmonology Progress Note ---
Date of Encounter: 08/24/17 Time of Encounter: 07:40 Assessment and Plan (1) Acute and chronic respiratory failure with hypoxia Current Visit: No Status: Acute Continue supplemental oxygen to keep saturation greater than 88% Encourage incentive spirometry out of bed to chair and ambulation is aware to medicate atelectasis promoting VQ mismatching (2) COPD (chronic obstructive pulmonary disease) Current Visit: No Status: Acute Continue steroids which can likely be transitioned to by mouth formulation tomorrow and bronchodilators he is also on antimicrobials which is appropriate I suspect that he can be transitioned to oral formulation of antimicrobials such as Augmentin to complete a 7 day course over the next 24 hours Qualifiers: COPD type: COPD with acute exacerbation Qualified Code(s): J44.1 - Chronic obstructive pulmonary disease with (acute) exacerbation (3) Bleeding Current Visit: Yes Status: Acute This is most likely hemoptysis given ENT and EGD evaluation were negative for identification of bleeding source. Plan for bronchoscopy today please keep nothing by mouth (4) Pneumonitis, radiation Current Visit: No Status: Chronic He is status post radiation treatment he has some chronic scarring I suspect that airway inflammation likely from acute infection coupled with underlying architectural distortion from radiation is the etiology of hemoptysis however cannot rule out possibility of endobronchial tumor Subjective Principal diagnosis: Expectoration of Blood Interval history: Patient is awake and alert today. He denies any further bleeding episodes. ENT eval yesterday unremarkable for bleeding source. Objective PUL Vital signs: Last Vital Signs Temp 98.4 F 08/24/17 04:06 Pulse 91 08/24/17 04:32 Resp 16 08/24/17 04:32 BP 145/10 08/24/17 04:06 Pulse Ox 95 08/24/17 04:32 General appearance: no acute distress Auscultation: bilateral: rhonchi Cardiovascular: regular rate and rhythm Extremities: no cyanosis, no edema normal mental status, non-focal exam Results - Laboratory Findings CBC and BMP: 08/23/17 05:23 08/23/17 05:23 ABG ABG pH 7.39 pH Units (7.32-7.45) 08/22/17 02:35 ABG pCO2 59 mmHg (35-45) H 08/22/17 02:35 ABG pO2 48 mmHg (85-104) L* 08/22/17 02:35 ABG O2 Saturation 82 % (95-98) L 08/22/17 02:35 PT/INR, D-dimer PT 12.2 Seconds (9.4-12.1) H 08/23/17 05:23 Abnormal lab findings: Abnormal lab results WBC 3.9 K/mcL (4.3-11.1) L 08/23/17 05:23 RBC 3.63 M/mcL (4.19-5.50) L 08/23/17 05:23 Hgb 9.8 g/dL (12.9-16.9) L 08/23/17 05:23 Hct 32.0 % (37.5-50.1) L 08/23/17 05:23 MCH 27.0 pg (28.0-33.3) L 08/23/17 05:23 MCHC 30.6 g/dL (31.6-35.5) L 08/23/17 05:23 Plt Count 134 K/mcL (140-400) L 08/23/17 05:23 Lymphocytes # 0.3 K/mcL (0.6-4.6) L 08/23/17 05:23 PT 12.2 Seconds (9.4-12.1) H 08/23/17 05:23 ABG pCO2 59 mmHg (35-45) H 08/22/17 02:35 ABG pO2 48 mmHg (85-104) L* 08/22/17 02:35 ABG HCO3 36 mEq/L (21-27) H 08/22/17 02:35 ABG Total CO2 38 mEq/L (20-26) H 08/22/17 02:35 ABG O2 Saturation 82 % (95-98) L 08/22/17 02:35 ABG Base Excess 9 mEq/L (-2 to 3) H 08/22/17 02:35 Carbon Dioxide 34 mEq/L (23-29) H 08/23/17 05:23 Creatinine 0.45 mg/dL (0.70-1.30) L 08/23/17 05:23 BUN/Creatinine Ratio 36 (6-26) H 08/23/17 05:23 Glucose 114 mg/dL (70-105) H 08/23/17 05:23 POC Glucose 130 mg/dL (70-99) H 08/23/17 23:58 - Clinical Findings Intake & Output: Intake & Output 08/23/17 08/23/17 08/24/17 15:59 23:59 07:59 Intake Total 100 / 100 100 / 100 100 / 100 Output Total 1600 / 1600 800 / 800 Balance -1500 / -1500 100 / 100 -700 / -700 Weight 60.8 kg 59.9 kg - VTE Documentation of Mechanical Device: Graduated compression elastic hosiery Consult Discharge Plan - Plan Referrals: Mike Leger Jr, MD [Primary Care Provider] - 08/31/17 8:00 am Alanis Cuellar MD [Partnered Physician] - (SENT WEB REQUEST ON 08-23-17 @ 0241)
[2017-08-24 07:55] VITALS: BP 158/112
--- NOTE | 2017-08-24 08:03 | Pre-Sedation Evaluation ---
Pre-sedation evaluation - Pre-sedation checklist Procedure: Bronchoscopy Recent Vitals: Last Vital Signs Temp 98.2 F 08/24/17 07:50 Pulse 86 08/24/17 07:50 Resp 16 08/24/17 07:50 BP 158/112 08/24/17 07:50 Pulse Ox 98 08/24/17 07:50 H&P (including ROS) documented in medical record: Yes Previous reaction to sedatives/anesthetics: No Dietary Status: NPO after Midnight Dentition: dentures removed Possible difficult airway: No ASA Classification *see protocol: CLASS III-Severe systemic disease Plan of Care: Pt appropriate candidate for procedure/moderate/conscious sedation , Risks/benefits of procedure/sedation discussed w/ patient/family
[2017-08-24] MEDS ORDERED: *HR* FentaNYL (PF) 100 MCG/2 ML VIAL IVP ONE (08:04)
[2017-08-24] MEDS ORDERED: *HR* EPINEPHrine 1 MG/10 ML SYRINGE INTRATRACH PRN (08:04)
[2017-08-24] MEDS ORDERED: *HR* Midazolam HCl 2 MG/2 ML VIAL IVP ONE (08:04)
[2017-08-24] MEDS ORDERED: Tetracaine/Benzocaine/Butamben 200MG/SPRAY (100SPY/BOT) MM ONE (08:04)
[2017-08-24] MEDS: ADDERALL 20 MG PO SCH (08:06)
[2017-08-24] MEDS: Gabapentin 400 MG CAPSULE PO SCH (08:06)
[2017-08-24] MEDS: Furosemide 20 MG TABLET PO SCH (08:06)
[2017-08-24] MEDS ORDERED: predniSONE 5 MG TABLET PO SCH (09:00)
[2017-08-24] MEDS ORDERED: 0.9 % Sodium Chloride 1,000 ML ONE (09:56)
--- NOTE | 2017-08-24 10:54 | Procedure Note ---
Date of procedure: 08/24/17 Pre-op diagnosis: Hemoptysis Post-op diagnosis: same Procedure: Time out was deffered as the procedure was emergent.. The patient was placed in a flat position. Sedation was obtained using . . A\ MAC 3/ BLADE was used and inserted into the oropharynx at which time there was a anatomic Grade 2 view of the vocal cords which partially obscured with blood a 7.5-syrian endotracheal tube was inserted and visualized going through the vocal cords. The stylette was removed. Colorimetric change was visualized on the CO2 meter. Breath sounds were heard in both lung rodrigues equally. The endotracheal tube was placed at 25 cm, measured at the lips The procedure was performed with ongoing CPR/ALCS Subsequently the tube was dislodgedand was replaced for a 7.0-Swedish endotracheal tube This procedure was assisted by video laryngoscopy inserted and visualized going through the vocal cords. The stylette was removed. Colorimetric change was visualized on the CO2 meter. Breath sounds were heard in both lung rodrigues equally. Surgeon: Basilio Orozco Was there an medical assistant prn present: No Estimated blood loss (cc): 0 Specimen: none Pathology: none sent Disposition: ICU
--- NOTE | 2017-08-24 14:12 | Event Note ---
Date of Encounter: 08/24/17 Time of Encounter: 09:54 JESSICA JONES Note: 08/24/2017 Rapid Response called 0953 Jessica Jones called 0954 Upon arrival to the [facility] Mr. Soria was found unresponsive with massive hemoptysis of bright red blood, hypoxic and hypotensive with bradycardia. He transitioned into PEA arrest immediately after initial evaluation. ACLS code was started at 0955 with effective CPR and ambu bag. Initial dose of 1mg IV Epinephrine was given at 0956 and 2L IV fluids were given rapidly through IV. ACLS protocol was followed with effective CPR, Epinephrine given IV every 3 minutes, Compressors were switched every 2 minutes to ensure efficacy of compressions, Pulse check was performed with every switch in compressors for less than [address] was secured with endotracheal tube and suction of bright red blood. ROSC was achieved at 1000. Patient continued to have difficulty with oxygenation likely secondary to hemoptysis and suction was continued. JESSICA JONES was called at 1005 after patient became hypotensive, Loss of pulse and his rhythm was found to be PEA, Restarted effective CPR and gave immediate dose of Epinephrine. Dopaine started 5 IV. Again ACLS protocol was followed with effective CPR, Epinephrine given IV every 3 minutes, Compressors were switched every 2 minutes to ensure efficacy of compressions, Pulse check was performed with every switch in compressors for less than 10 seconds. Due to continued hemoptysis and poor oxygenation The endotracheal tube was switched out with color change on Waveform capnography. Patient received 2amps Bicarb; 1amp at 1009 and 1amp at 1027. IV calcium was given at 1028. Patient was transferred to the ICU for possible bronchoscopy to address massive hemoptysis and during transport CPR and oxygenation was continued. Upon arrival to the emergency Family request termination of CPR. Final evaluation demonstrated no pulse, absent heart tones, no breath sounds on auscultation, no yanni reflex and no corneal reflex. Time of called at 1029 Resident Code [place] captain: Jc Stallworth DO Attending physician: aBsilio Orozco MD
--- NOTE | 2017-08-24 16:24 | Discharge Summary ---
Date of Encounter: 08/24/17 Time of Encounter: 10:00 - Discharge Diagnosis (1) Hemoptysis Priority: Primary Status: Acute (2) Non-small cell carcinoma of left lung, stage 4 Priority: Primary Status: Chronic (3) Hypothyroidism Priority: Secondary Status: Chronic Qualifiers: Hypothyroidism type: unspecified Qualified Code(s): E03.9 - Hypothyroidism , unspecified (4) COPD (chronic obstructive pulmonary disease) Priority: Secondary Status: Chronic Qualifiers: COPD type: unspecified COPD Qualified Code(s): J44.9 - Chronic obstructive pulmonary disease, unspecified (5) Essential hypertension Priority: Secondary Status: Chronic (6) Aspiration pneumonia Priority: Primary Status: Suspected Qualifiers: Aspiration pneumonia type: unspecified Laterality: unspecified laterality Lung location: unspecified part of lung Qualified Code(s): J69.0 - Pneumonitis due to inhalation of food and vomit (7) Acute blood loss anemia Priority: Primary Status: Acute (8) GERD (gastroesophageal reflux disease) Priority: Secondary Status: Chronic Qualifiers: Esophagitis presence: with esophagitis Qualified Code(s): K21.0 - Gastro- esophageal reflux disease with esophagitis (9) Acute respiratory failure Priority: Primary Status: Acute Qualifiers: Respiratory failure complication: hypoxia Qualified Code(s): J96.01 - Acute respiratory failure with hypoxia Hospital course: Mr. Soria is a 62 year old male with the above medical problems. Patient today prior to my evaluation. Chart review shows that patient was admitted 2 days ago with suspected upper GI bleed versus hemoptysis. He underwent EGD with no evidence of upper GI bleed. Pulmonology was consulted, bronchoscopy was planned for today to evaluate cause of hemoptysis. He was also on IV antibiotics for suspected aspiration pneumonia. Rapid response and subsequent CODE BLUE was called this morning. Details per CODE BLUE note. Patient received rapid sequence 18 intubation during the code. He was subsequently transferred to ICU for closer monitoring and possible bronchoscopy, however due to no improvement and recurrent loss of pulse and hypotension, family was noted to have called off further care and patient was pronounced by ICU team at 10:29 AM. Primary cause of -respiratory failure Secondary causes-hemoptysis Other diagnoses- Non-small cell lung cancer, COPD - Time Spent with Patient Total time spent providing and/or coordinating discharge services: Less than 30 minutes - Discharge Medications Home Medications: Atorvastatin [Lipitor] 10 mg PO DAILY 12/28/14 [History] Duloxetine HCl [Cymbalta] 60 mg PO BID 12/28/14 [History] Gabapentin [Neurontin] 800 mg PO Q6HR 12/28/14 [History] Ipratropium/Albuterol Sulfate [Combivent Respimat Inhal [place]] 2 puff IH Q4-6H PRN 12/28/14 [History] Nortriptyline [Pamelor] 10 mg PO HS 12/28/14 [History] Sennosides/Docusate Sodium [Senna Plus] 2 each PO DAILY PRN 12/28/14 [History] Levothyroxine [Synthroid] 175 mcg PO DAILY #90 tablet 08/15/15 [Rx] Oxygen 3 - 3.5 l NS CONT 01/14/16 [History] Potassium Chloride 20 meq PO DAILY #90 tab.er.prt 01/17/16 [Rx] Ipratropium/Albuterol Neb [Duoneb] 3 ml IH [id number] #0 inhsol 06/03/16 [Rx] Furosemide [Lasix] 20 mg PO BID 06/11/16 [History] Esomeprazole Magnesium [Nexium] 40 mg PO DAILY 04/12/17 [History] predniSONE [PredniSONE] 5 mg PO DAILY 04/12/17 [History] Acetylcysteine 2 ml IH Q6H 08/22/17 [History] Dextroamphetamine/Amphetamine [Adderall 10 mg Tablet] 20 mg PO BID 08/22/17 [ History] Oxycodone HCl/Acetaminophen [Percocet 10-325 mg Tablet] 1 each PO TID PRN [History] Allergies/Adverse Reactions: 3 Allergy/AdvReac Type Severity Reaction Status Date / Time No Known Allergies Allergy Verified 04/12/17 16:00 Date of admission: 08/22/17 06:13 Primary care physician: Mike Leger Jr, MD - Constitutional Vitals: Temp Pulse Resp BP Pulse Ox 98.2 F 86 16 158/112 98 08/24/17 07:50 08/24/17 07:50 08/24/17 07:50 08/24/17 07:50 08/24/17 07:50 - Patient Status Disposition: - Discharge Instructions Follow Up With: Mike Leger Jr, MD [Primary Care Provider] - Alanis Cuellar MD [Partnered Physician] - (SENT WEB REQUEST ON 08-23-17 @ [id number]) - VTE Documentation of Mechanical Device: Graduated compression elastic hosiery
--- NOTE | 2017-08-27 11:51 | Electrocardiograph Report ---
[place] [id number] Test Date: 2017-08-22 Pat Name: Edgard Soria Department: 103 Room: [facility] Gender: M Icu Manager: : [id number] Requested By: [id number] Order Number: [id number] Reading MD: German Lawton Measurements Intervals [place] Rate: 111 P: -12 FL: 153 QRS: -7 QRSD: 139 T: -18 QT: 376 QTc: 442 Interpretive Statements SINUS TACHYCARDIA WITH OCCASIONAL SUPRAVENTRICULAR PREMATURE COMPLEXES INDETERMINATE AXIS RIGHT BUNDLE BRANCH BLOCK Electronically Signed On 08-27-2017 11:49:19 EDT by German Lawton
== END 2017-08-24 10:29 | disposition expired | DRG 377 ==
LOC: 2NNU 01:38 → EMEROO 01:38 → 2NNU 06:04 → SUATTDRO 06:13 → ICNU 08-24 13:06
PROVIDERS: ADMIT Pediatrics; ATTEND Internal Medicine
PROC: ENDOEBX (2017-08-22 16:00)